=== PATIENT | female | born 1960 | race Caucasian/White ===

== ENCOUNTER → 2017-04-05 07:23 | Outpatient (CLI) | payer OTHER, SELFPAY ==
[2017-04-05 10:14] LABS: Absolute Lymphocyte Count 1.04 X10^3/ul (0.83-4.51); Absolute Neutrophil Count 2.2 X10^3/uL (2.0-7.7); Basophil# 0.02 X10^3/uL; Basophil% 0.5 % (0-1); Eosinophil# 0.14 X10^3/uL; Eosinophils% 3.8 % (0-5); Hematocrit 40.1 % (37-47); Lymphocyte # 1.04 X10^3/ul (4.0); Mean Corp Hgb Conc 32.4 g/gl (32-36); Mean Corpuscular Hgb 29.9 pg (27.0-32.0); Mean Corpuscular Volume 92.2 fL (81-99); Mean Platelet Vol. 10.6 fl (6.2-12.0); Monocyte# 0.33 X10^3/uL; Monocyte% 8.9 % (0-10); Neutrophil # 2.17 X10^3/uL (2.7-7.7); Neutrophil % 58.5 % (47-70); Platelet Count 265 K/mm3 (150-450); RBC Distribution Width CV 12.6 % (11.6-14.6); RBC Distribution Width SD 42.4 fl (35.1-43.9); Red Blood Count 4.35 M/mm3 (4.2-5.4); White Blood Count 3.7 K/mm3 (4.4-11.0)
[2017-04-05 10:28] LABS: POSITIVE COUNT NO; POSITIVE DIFFERENTIAL NO; POSITIVE MORPHOLOGY NO
[2017-04-05 10:38] LABS: AST(SGOT) 20 U/L (15-37); Alanine Aminotransfer ALT/SGPT 33 U/L (13-56); Albumin, Serum 3.8 g/dL (3.2-5.0); Alkaline Phosphatase 70 U/L (45-117); Anion Gap 6 (5-15); BUN 19 mg/dL (7-18); BUN/Creat Ratio 19.2 RATIO (10-20); Chloride 106 mmol/L (98-107); Creatinine, Serum 0.99 mg/dL (0.55-1.02); EST Glomerular Filtration Rate 61 mL/min (>60); Est Glom Filt Rate - Afr Amer 74 mL/min (>60); Globulin 3.9 g/dL (2.2-4.2); Glucose 81 mg/dL (74-106); Potassium 3.8 mmol/L (3.5-5.1); Protein, Total 7.7 g/dL (6.4-8.2); Sodium Level 140 mmol/L (136-145)
[2017-04-06 10:40] LABS: Vitamin D,25 Hydroxy 16.5 ng/mL (19.95-100.01)
[2017-04-06 16:53] LABS: SJOGREN'S Anti-SS-A test < 0.2 AI (0.0-0.9); SJOGREN'S Anti-SS-B test < 0.2 AI (0.0-0.9)
[2017-04-07 16:02] LABS: ANTINUCLEAR ANTIBODIES DIRECT Negative (Negative)
== END ==
PROVIDERS: Family Provider Internal Medicine; PCP Internal Medicine; Visit Provider Internal Medicine Rheumatology
DX: M05.79 Rheumatoid arthritis with rheumatoid factor of multiple sites without organ or systems involvement (principal); Z79.899 Other long term (current) drug therapy; M79.7 Fibromyalgia; M70.60 Trochanteric bursitis, unspecified hip; K29.60 Other gastritis without bleeding; N20.0 Calculus of kidney; R51 Headache
CPT/HCPCS: 36415; 80053; 82306; 85025; 86038; 86235

== ENCOUNTER 2017-05-30 04:01 | Emergency (ER) | payer OTHER, SELFPAY ==
[2017-05-30 04:02] VITALS: BP 180/101; PULSE 76; RESP 15; TEMP 36.8; O2SAT 100; BMI 20.7
--- NOTE | 2017-05-30 04:11 | EKG12_ITS ---
Test Reason : EPIGASTRIC PAIN Blood Pressure : / mmHG Vent. Rate : 074 BPM Atrial Rate : 074 BPM P-R Int : 138 ms QRS Dur : 082 ms QT Int : 404 ms P-R-T Axes : 068 051 065 degrees QTc Int : 448 ms Normal sinus rhythm Normal ECG Confirmed by RENETTA ZAMAN, SHON ([id number]), assignment editor CHASTIYT TINEO ([id number]) on 05/31/2017 3:14:32 PM Referred By: TUYET Confirmed By:SHON JACKSON MD
--- NOTE | 2017-05-30 04:11 | CT_ITS ---
STUDY: CT ABDOMEN AND PELVIS WITH CONTRAST REASON FOR EXAM: Female, 56 years old. Left upper quadrant pain for one day. History of cholecystectomy RADIATION DOSAGE (If Supplied By Facility): CTDIvol = ( 8.69 ) mGy, DLP = ( 373.21 ) mGycm TECHNIQUE: Transaxial images were obtained from the dome of the diaphragm to the symphysis pubis without oral contrast. 100ML ml of Isovue 300 contrast was administered. Sagittal and coronal images were reconstructed. Individualized dose optimization techniques were used for this CT. COMPARISON: None. FINDINGS: As seen on axial images 1-2, there is partial demonstration of a 9 mm nodule in the visualized lateral right breast. There is mild atelectasis in the visualized posterior lung bases. The visualized portions of the heart are within normal limits. Normal liver. The gallbladder is nonvisualized, consistent with given history of prior cholecystectomy. There is mild central intrahepatic bile duct dilatation which may be physiologic postcholecystectomy. The common bile duct is normal in caliber.. Normal spleen. Normal pancreas. Normal bilateral adrenal glands. Normal right kidney. Normal left kidney. Normal visualized stomach. Normal small intestine. Normal colon. The appendix is visualized on axial images 83-85 and it appears normal.. There is mild atherosclerotic calcification of the abdominal aorta, without a demonstrated aneurysm. Normal inferior vena cava. Normal retroperitoneum. Normal urinary bladder. There is a 3.5 cm leiomyoma in the left lateral uterine fundus. There is retrograde filling of the left gonadal vein, consistent with venous valvular incompetence. There are associated left adnexal varices. Normal abdominal wall. Normal osseous structures. CT/Abdomen/Pelvis W IV Cont ONLY IMPRESSION: Incidental finding of a 9 mm nodule in the lateral right breast. Suggest mammographic and breast ultrasound correlation. Previous cholecystectomy. Mild atherosclerosis. Leiomyomatous uterus. 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 No evidence for acute pathology. No demonstrated urinary calculi or hydronephrosis. No evidence for diverticulitis or appendicitis. Electronically Signed: Shubham Gudino MD at 5:28 EDT , Service support ,
[2017-05-30 04:21] LABS: Absolute Lymphocyte Count 1.04 X10^3/ul (0.83-4.51); Absolute Neutrophil Count 5.6 X10^3/uL (2.0-7.7); Basophil# 0.01 X10^3/uL; Basophil% 0.1 % (0-1); Eosinophil# 0.04 X10^3/uL; Eosinophils% 0.6 % (0-5); Hemoglobin 14.6 g/dl (12.0-15.0); Lymphocyte # 1.04 X10^3/ul (4.0); Lymphocyte % 14.3 % (19-41); Mean Corpuscular Hgb 30.6 pg (27.0-32.0); Mean Corpuscular Volume 90.1 fL (81-99); Mean Platelet Vol. 10.4 fl (6.2-12.0); Monocyte# 0.57 X10^3/uL; Monocyte% 7.9 % (0-10); Neutrophil # 5.59 X10^3/uL (2.7-7.7); Platelet Count 287 K/mm3 (150-450); RBC Distribution Width CV 12.7 % (11.6-14.6); RBC Distribution Width SD 41.5 fl (35.1-43.9); Red Blood Count 4.77 M/mm3 (4.2-5.4); White Blood Count 7.3 K/mm3 (4.4-11.0)
[2017-05-30] MEDS: 0.9% Normal Saline 1,000 ML 1000 ML IV (04:24)
[2017-05-30] MEDS: Ondansetron 4 MG/2 ML Vial IV (04:24)
[2017-05-30] MEDS: Morphine 4 MG/ML Syringe IV (04:24)
[2017-05-30 04:27] LABS: POSITIVE COUNT NO; POSITIVE DIFFERENTIAL NO; POSITIVE MORPHOLOGY NO
[2017-05-30 04:41] LABS: BUN 23 mg/dL (7-18); Creatinine, Serum 0.99 mg/dL (0.55-1.02); EST Glomerular Filtration Rate 61 mL/min (>60); Estimated Creatinine Clearance 56.12 ml/min; Glucose 93 mg/dL (74-106)
[2017-05-30 04:42] LABS: AST(SGOT) 34 U/L (15-37); Alanine Aminotransfer ALT/SGPT 43 U/L (13-56); Alkaline Phosphatase 73 U/L (45-117); Anion Gap 6 (5-15); BUN/Creat Ratio 23.2 RATIO (10-20); Calcium,Total 8.9 mg/dL (8.5-10.1); Chloride 107 mmol/L (98-107); Est Glom Filt Rate - Afr Amer 74 mL/min (>60); Lipase 166 U/L (73-393); Potassium 4.1 mmol/L (3.5-5.1); Sodium Level 140 mmol/L (136-145)
--- NOTE | 2017-05-30 04:54 | NURSING ---
PATIENT ATTEMPTED TO GET URINE SPECIMEN. HE ENDED UP VOIDING IN THE TOILET AND THREW THE URINE CUP IN THE TRASH. PATIENT STATES I KEEP BLACKING OUT, MY MIND ISN'T RIGHT.
--- NOTE | 2017-05-30 05:00 | RAD_ITS ---
STUDY: X-RAY CHEST REASON FOR EXAM: Female, 56 years old. Abdominal pain. Difficulty taking in her breast. TECHNIQUE: 2 AP portable views of the chest were obtained. COMPARISON: CT scan abdomen and pelvis done today. FINDINGS: The lungs are clear and expanded. There is no demonstrated pleural abnormality. Normal size heart. Normal mediastinum and serena. Normal visualized pulmonary arteries. Normal visualized aortic arch and descending thoracic aorta. Normal visualized thoracic spine. Normal visualized ribs, clavicles, and shoulders. There is no demonstrated abnormality of the visualized soft tissue structures of the upper abdomen. RAD/Chest 1 View (Portable) IMPRESSION: Normal x-ray examination of the chest. Electronically Signed: Shubham Gudino MD at 5:55 EDT , Service support ,
[2017-05-30 05:38] LABS: Bacteria 0 SEEN /hpf (None Seen); Mucous, Urine 0 SEEN /hpf (<or=2+); Red Blood Cells-Urine 0 SEEN /hpf (0-5); White Blood Cells 0 SEEN /hpf (0-5)
[2017-05-30 05:44] LABS: Color, Urine Yellow (Yellow); Glucose, Dipstick Normal (Normal); Ketone-Dipstick Negative (Negative); Leukocyte Esterase-Dipstick 25 /ul (Negative); Nitrite-Dipstick Negative (Negative); Occult Blood-Urine 150 /ul (Negative); Protein-Dipstick Negative (Negative); Urine Bilirubin Dipstick Negative (Negative); Urine Clarity Clear (Clear); Urine Urobilinogen Normal (Normal)
[2017-05-30 05:59] LABS: Squamous Epithelial Cells - UA 0-5 SEEN /hpf (5-10)
--- NOTE | 2017-05-30 06:42 | ED.DCSUM_ITS ---
- ER Visit Summary Date of Service: 05/30/17 Chief Complaint: Pain History of Present Illness: The patient is a 56 F with left upper quadrant pain that radiates through to her back. Symptoms started yesterday at 6 PM. She never had this before. She has a history of hypertension and rheumatoid arthritis. History of cholecystectomy. Non-smoker. No fevers. No other GI symptoms. No chest pain or shortness of breath. No history of PE or DVT. No urinary symptoms. No traumas. Physical Examination: Initial blood pressure 180/101. Afebrile and vital signs otherwise unremarkable. Patient is in no acute distress. Alert and oriented. Heart regular. Lungs clear. Abdomen is tender in the epigastric and left upper quadrant. No guarding or rebound. No CVA tenderness. Skin appears normal. No focal or lateralizing neurologic abnormalities grossly. Test Results: EKG showed sinus rhythm at a rate of 74. No sign of acute ischemia or infarction pattern. Chest x-ray was normal. CT abdomen showed a right breast nodule. Postoperative and chronic changes. Nothing acute. CBC normal. CMP unremarkable. Lipase normal. Urinalysis negative. Troponin normal. Emergency Department Course and Treatment: I considered pulmonary, cardiac, vascular, GI, , and musculoskeletal causes. Her workup was all fairly unremarkable. She does have a history of gastritis. I will treat her with a PPI. She will follow-up with her doctor. I advised her that if she has new or worsening issues she should return to the emergency department right away. Patient is aware of the right breast nodule. Treatment Plan: As above Disposition: Discharge Impression: 1. Abdominal pain unclear etiology 2. Right breast nodule. This note was generated with [employer] dictation software. It may contain incorrect words, spelling, and punctuation that were not noted in review of the chart prior to signing ED Disposition - Plan for ED Patient: Chief Complaint: Abd Pain Referrals: Sunita Ly MD [Primary Care Provider] -
--- NOTE | 2017-05-30 06:42 | ED.DEP ---
ED Disposition - Plan for ED Patient: Chief Complaint: Abd Pain Instructions: ED Abdominal Pain Unkn Cause Prescriptions: Omeprazole [Prilosec] 20 mg PO DAILY #30 cap Referrals: Sunita Ly MD [Primary Care Provider] -
[2017-05-30 06:45] VITALS: BP 111/62; PULSE 64; RESP 15; O2SAT 97
== END 2017-05-30 06:51 | disposition home or self-care (01) ==
PROVIDERS: Emergency Provider Emergency Medicine; Family Provider Internal Medicine; PCP Internal Medicine
DX: R10.9 Unspecified abdominal pain (principal); N63.0 Unspecified lump in unspecified breast; Z90.49 Acquired absence of other specified parts of digestive tract; I10 Essential (primary) hypertension; M06.9 Rheumatoid arthritis, unspecified
CPT/HCPCS: 71045; 74177; 80053; 81001; 83690; 84484; 85025; 93005; 96361; 96374; 96375; 99285; Q9967; A4216; J2405

== ENCOUNTER → 2017-07-06 07:22 | Outpatient (CLI) | payer OTHER, SELFPAY ==
[2017-07-06 10:16] LABS: Absolute Lymphocyte Count 1.27 X10^3/ul (0.83-4.51); Absolute Neutrophil Count 1.8 X10^3/uL (2.0-7.7); Basophil# 0.01 X10^3/uL; Basophil% 0.3 % (0-1); Eosinophil# 0.12 X10^3/uL; Eosinophils% 3.4 % (0-5); Hematocrit 40.9 % (37-47); Hemoglobin 13.4 g/dl (12.0-15.0); Lymphocyte # 1.27 X10^3/ul (4.0); Lymphocyte % 36.1 % (19-41); Mean Corp Hgb Conc 32.8 g/gl (32-36); Mean Corpuscular Hgb 30.5 pg (27.0-32.0); Mean Corpuscular Volume 93.2 fL (81-99); Mean Platelet Vol. 10.7 fl (6.2-12.0); Monocyte# 0.33 X10^3/uL; Monocyte% 9.4 % (0-10); Neutrophil # 1.78 X10^3/uL (2.7-7.7); Neutrophil % 50.5 % (47-70); Platelet Count 296 K/mm3 (150-450); RBC Distribution Width CV 13.2 % (11.6-14.6); RBC Distribution Width SD 43.8 fl (35.1-43.9); Red Blood Count 4.39 M/mm3 (4.2-5.4); White Blood Count 3.5 K/mm3 (4.4-11.0)
[2017-07-06 10:19] LABS: POSITIVE COUNT NO; POSITIVE DIFFERENTIAL NO; POSITIVE MORPHOLOGY NO
[2017-07-06 10:31] LABS: AST(SGOT) 35 U/L (15-37); Alanine Aminotransfer ALT/SGPT 58 U/L (13-56); Albumin, Serum 3.9 g/dL (3.2-5.0); Alkaline Phosphatase 66 U/L (45-117); Anion Gap 7 (5-15); BUN 20 mg/dL (7-18); Calcium,Total 8.8 mg/dL (8.5-10.1); Chloride 105 mmol/L (98-107); Creatinine, Serum 1.05 mg/dL (0.55-1.02); EST Glomerular Filtration Rate 57 mL/min (>60); Est Glom Filt Rate - Afr Amer 69 mL/min (>60); Globulin 3.8 g/dL (2.2-4.2); Glucose 81 mg/dL (74-106); Potassium 4.2 mmol/L (3.5-5.1); Protein, Total 7.7 g/dL (6.4-8.2); Sodium Level 141 mmol/L (136-145)
[2017-07-06 10:49] LABS: Vitamin D,25 Hydroxy 31.2 ng/mL (29.95-100.01)
== END ==
PROVIDERS: Family Provider Internal Medicine; PCP Internal Medicine; Visit Provider Internal Medicine Rheumatology
DX: M05.79 Rheumatoid arthritis with rheumatoid factor of multiple sites without organ or systems involvement (principal); Z79.899 Other long term (current) drug therapy; M79.7 Fibromyalgia; E55.9 Vitamin D deficiency, unspecified; M70.60 Trochanteric bursitis, unspecified hip; K29.60 Other gastritis without bleeding; N20.0 Calculus of kidney; R51 Headache
CPT/HCPCS: 36415; 80053; 82306; 85025

== ENCOUNTER → 2017-09-21 07:33 | Outpatient (CLI) | payer OTHER, SELFPAY ==
[2017-09-21 10:31] LABS: Absolute Lymphocyte Count 0.86 X10^3/ul (0.83-4.51); Absolute Neutrophil Count 3.2 X10^3/uL (2.0-7.7); Basophil# 0.03 X10^3/uL; Basophil% 0.6 % (0-1); Eosinophil# 0.26 X10^3/uL; Eosinophils% 5.3 % (0-5); Hematocrit 39.5 % (37-47); Hemoglobin 13.1 g/dl (12.0-15.0); Lymphocyte # 0.86 X10^3/ul (4.0); Lymphocyte % 17.7 % (19-41); Mean Corp Hgb Conc 33.2 g/gl (32-36); Mean Corpuscular Hgb 30.7 pg (27.0-32.0); Mean Corpuscular Volume 92.5 fL (81-99); Mean Platelet Vol. 10.7 fl (6.2-12.0); Monocyte# 0.52 X10^3/uL; Monocyte% 10.7 % (0-10); Neutrophil # 3.18 X10^3/uL (2.7-7.7); Neutrophil % 65.3 % (47-70); Platelet Count 274 K/mm3 (150-450); RBC Distribution Width CV 12.8 % (11.6-14.6); RBC Distribution Width SD 42.6 fl (35.1-43.9); Red Blood Count 4.27 M/mm3 (4.2-5.4); White Blood Count 4.9 K/mm3 (4.4-11.0)
[2017-09-21 10:34] LABS: POSITIVE COUNT NO; POSITIVE DIFFERENTIAL NO; POSITIVE MORPHOLOGY NO
[2017-09-21 10:44] LABS: AST(SGOT) 23 U/L (15-37); Alanine Aminotransfer ALT/SGPT 34 U/L (13-56); Albumin, Serum 3.9 g/dL (3.2-5.0); Alkaline Phosphatase 69 U/L (45-117); Anion Gap 10 (5-15); BUN 22 mg/dL (7-18); BUN/Creat Ratio 20.2 RATIO (10-20); Calcium,Total 9.3 mg/dL (8.5-10.1); Chloride 104 mmol/L (98-107); Creatinine, Serum 1.09 mg/dL (0.55-1.02); EST Glomerular Filtration Rate 55 mL/min (>60); Est Glom Filt Rate - Afr Amer 66 mL/min (>60); Glucose 81 mg/dL (74-106); Potassium 3.7 mmol/L (3.5-5.1); Protein, Total 7.9 g/dL (6.4-8.2); Sodium Level 142 mmol/L (136-145)
== END ==
PROVIDERS: Family Provider Internal Medicine; PCP Internal Medicine; Visit Provider Internal Medicine Rheumatology
DX: M05.79 Rheumatoid arthritis with rheumatoid factor of multiple sites without organ or systems involvement (principal); Z79.899 Other long term (current) drug therapy; M79.7 Fibromyalgia; E55.9 Vitamin D deficiency, unspecified; M70.60 Trochanteric bursitis, unspecified hip; K29.60 Other gastritis without bleeding; N20.0 Calculus of kidney; R51 Headache
CPT/HCPCS: 36415; 80053; 85025

== ENCOUNTER → 2017-12-22 07:13 | Outpatient (CLI) | payer OTHER, SELFPAY ==
[2017-12-22 10:37] LABS: Absolute Lymphocyte Count 0.97 X10^3/ul (0.83-4.51); Absolute Neutrophil Count 1.5 X10^3/uL (2.0-7.7); Basophil# 0.01 X10^3/uL; Basophil% 0.3 % (0-1); Eosinophil# 0.17 X10^3/uL; Eosinophils% 5.7 % (0-5); Hematocrit 40.6 % (37-47); Hemoglobin 13.5 g/dl (12.0-15.0); Lymphocyte # 0.97 X10^3/ul (4.0); Lymphocyte % 32.6 % (19-41); Mean Corp Hgb Conc 33.3 g/gl (32-36); Mean Corpuscular Hgb 30.4 pg (27.0-32.0); Mean Corpuscular Volume 91.4 fL (81-99); Mean Platelet Vol. 10.7 fl (6.2-12.0); Monocyte# 0.34 X10^3/uL; Monocyte% 11.4 % (0-10); Neutrophil # 1.48 X10^3/uL (2.7-7.7); Neutrophil % 49.7 % (47-70); Platelet Count 261 K/mm3 (150-450); RBC Distribution Width CV 12.6 % (11.6-14.6); RBC Distribution Width SD 41.4 fl (35.1-43.9); Red Blood Count 4.44 M/mm3 (4.2-5.4)
[2017-12-22 10:38] LABS: POSITIVE COUNT NO; POSITIVE DIFFERENTIAL NO; POSITIVE MORPHOLOGY NO
[2017-12-22 10:56] LABS: AST(SGOT) 20 U/L (15-37); Alanine Aminotransfer ALT/SGPT 38 U/L (13-56); Albumin, Serum 3.9 g/dL (3.2-5.0); Alkaline Phosphatase 73 U/L (45-117); Anion Gap 7 (5-15); BUN 18 mg/dL (7-18); BUN/Creat Ratio 17.1 RATIO (10-20); Calcium,Total 8.9 mg/dL (8.5-10.1); Chloride 106 mmol/L (98-107); Creatinine, Serum 1.05 mg/dL (0.55-1.02); EST Glomerular Filtration Rate 57 mL/min (>60); Est Glom Filt Rate - Afr Amer 69 mL/min (>60); Globulin 3.8 g/dL (2.2-4.2); Glucose 77 mg/dL (74-106); Potassium 3.9 mmol/L (3.5-5.1); Protein, Total 7.7 g/dL (6.4-8.2); Sodium Level 143 mmol/L (136-145)
== END ==
PROVIDERS: Family Provider Internal Medicine; PCP Internal Medicine; Referring Provider Internal Medicine Rheumatology; Visit Provider Internal Medicine Rheumatology
DX: M05.79 Rheumatoid arthritis with rheumatoid factor of multiple sites without organ or systems involvement (principal); M70.60 Trochanteric bursitis, unspecified hip; Y93.9 Activity, unspecified; K29.60 Other gastritis without bleeding; M79.7 Fibromyalgia; E55.9 Vitamin D deficiency, unspecified; N20.0 Calculus of kidney; R51 Headache; Z79.899 Other long term (current) drug therapy
CPT/HCPCS: 36415; 80053; 85025

== ENCOUNTER → 2018-03-14 07:26 | Outpatient (CLI) | payer OTHER, SELFPAY ==
[2018-03-14 10:18] LABS: Absolute Lymphocyte Count 0.56 X10^3/ul (0.83-4.51); Absolute Neutrophil Count 3.5 X10^3/uL (2.0-7.7); Basophil# 0.03 X10^3/uL; Basophil% 0.6 % (0-1); Eosinophils% 4.3 % (0-5); Hematocrit 39.6 % (37-47); Hemoglobin 12.9 g/dl (12.0-15.0); Lymphocyte # 0.56 X10^3/ul (4.0); Mean Corp Hgb Conc 32.6 g/gl (32-36); Mean Corpuscular Hgb 29.7 pg (27.0-32.0); Mean Platelet Vol. 10.9 fl (6.2-12.0); Monocyte% 8.6 % (0-10); Neutrophil # 3.46 X10^3/uL (2.7-7.7); Neutrophil % 74.3 % (47-70); Platelet Count 269 K/mm3 (150-450); RBC Distribution Width CV 12.8 % (11.6-14.6); RBC Distribution Width SD 42.5 fl (35.1-43.9); Red Blood Count 4.35 M/mm3 (4.2-5.4); White Blood Count 4.7 K/mm3 (4.4-11.0)
[2018-03-14 10:20] LABS: Differential Indicated SCAN CRITERIA MET; POSITIVE COUNT NO; POSITIVE DIFFERENTIAL YES; POSITIVE MORPHOLOGY NO
[2018-03-14 10:37] LABS: AST(SGOT) 20 U/L (15-37); Alanine Aminotransfer ALT/SGPT 31 U/L (13-56); Albumin, Serum 3.8 g/dL (3.2-5.0); Alkaline Phosphatase 79 U/L (45-117); Anion Gap 10 (5-15); BUN 19 mg/dL (7-18); BUN/Creat Ratio 17.4 RATIO (10-20); Calcium,Total 9.2 mg/dL (8.5-10.1); Chloride 107 mmol/L (98-107); Creatinine, Serum 1.09 mg/dL (0.55-1.02); EST Glomerular Filtration Rate 55 mL/min (>60); Est Glom Filt Rate - Afr Amer 66 mL/min (>60); Globulin 3.9 g/dL (2.2-4.2); Glucose 82 mg/dL (74-106); Potassium 3.8 mmol/L (3.5-5.1); Protein, Total 7.7 g/dL (6.4-8.2); Sodium Level 142 mmol/L (136-145)
== END ==
PROVIDERS: Family Provider Internal Medicine; PCP Internal Medicine; Referring Provider Internal Medicine Rheumatology; Visit Provider Internal Medicine Rheumatology
DX: M05.79 Rheumatoid arthritis with rheumatoid factor of multiple sites without organ or systems involvement (principal); M79.7 Fibromyalgia; E55.9 Vitamin D deficiency, unspecified; M70.60 Trochanteric bursitis, unspecified hip; K29.60 Other gastritis without bleeding; N20.0 Calculus of kidney; R51 Headache; Z79.899 Other long term (current) drug therapy
CPT/HCPCS: 36415; 80053; 85025

== ENCOUNTER → 2018-03-30 16:49 | Outpatient (CLI) | payer OTHER, SELFPAY ==
--- NOTE | 2018-03-30 16:52 | RAD_ITS ---
STUDY: X-RAY - PELVIS REASON FOR EXAM: Female, 57 years old. Rheumatoid arthritis. TECHNIQUE: One view of the pelvis was obtained. COMPARISON: CT abdomen and pelvis May 30, 2017. FINDINGS: There is a non-specific bowel gas pattern. There are stable multiple calcified phleboliths. There is stable early inferior periarticular spurring of the bilateral sacroiliac joint. Normal iliac wings and visualized sacrum. Normal visualized bilateral superior and inferior pubic rami. Normal pubic symphysis. Normal right ischium. Stable small, benign-appearing sclerotic density in the inferior left ischium. There is no demonstrated osseous destructive lesion or acute fracture. Normal visualized right femoral head. Normal right acetabulum. Normal right hip joint. Normal visualized left femoral head. Normal left acetabulum. Normal left hip joint. RAD/Pelvis 1 or 2 Views IMPRESSION: Virtually normal x-ray examination of the pelvis, unchanged from May 2017. Electronically Signed: Az Perkins MD at 16:38 EST , Service support ,
== END ==
PROVIDERS: Family Provider Internal Medicine; PCP Internal Medicine; Referring Provider Internal Medicine Rheumatology; Visit Provider Internal Medicine Rheumatology
DX: M05.79 Rheumatoid arthritis with rheumatoid factor of multiple sites without organ or systems involvement (principal); M79.7 Fibromyalgia; E55.9 Vitamin D deficiency, unspecified; Z79.899 Other long term (current) drug therapy
CPT/HCPCS: 72170

== ENCOUNTER → 2018-04-12 07:27 | Outpatient (CLI) | payer OTHER, SELFPAY ==
[2018-04-12 10:22] LABS: Absolute Lymphocyte Count 0.62 X10^3/ul (0.83-4.51); Absolute Neutrophil Count 2.5 X10^3/uL (2.0-7.7); Basophil# 0.04 X10^3/uL; Eosinophil# 0.26 X10^3/uL; Eosinophils% 6.8 % (0-5); Hematocrit 40.5 % (37-47); Hemoglobin 13.2 g/dl (12.0-15.0); Lymphocyte # 0.62 X10^3/ul (4.0); Lymphocyte % 16.1 % (19-41); Mean Corp Hgb Conc 32.6 g/gl (32-36); Mean Corpuscular Hgb 30.2 pg (27.0-32.0); Mean Corpuscular Volume 92.7 fL (81-99); Mean Platelet Vol. 11.1 fl (6.2-12.0); Monocyte# 0.42 X10^3/uL; Monocyte% 10.9 % (0-10); Neutrophil # 2.51 X10^3/uL (2.7-7.7); Neutrophil % 65.2 % (47-70); Platelet Count 270 K/mm3 (150-450); RBC Distribution Width CV 12.6 % (11.6-14.6); RBC Distribution Width SD 41.9 fl (35.1-43.9); Red Blood Count 4.37 M/mm3 (4.2-5.4); White Blood Count 3.9 K/mm3 (4.4-11.0)
[2018-04-12 10:24] LABS: POSITIVE COUNT NO; POSITIVE DIFFERENTIAL NO; POSITIVE MORPHOLOGY NO
[2018-04-12 10:41] LABS: AST(SGOT) 19 U/L (15-37); Alanine Aminotransfer ALT/SGPT 30 U/L (13-56); Albumin, Serum 3.9 g/dL (3.2-5.0); Alkaline Phosphatase 82 U/L (45-117); Anion Gap 6 (5-15); BUN 24 mg/dL (7-18); BUN/Creat Ratio 21.6 RATIO (10-20); Calcium,Total 8.9 mg/dL (8.5-10.1); Chloride 107 mmol/L (98-107); Creatinine, Serum 1.11 mg/dL (0.55-1.02); EST Glomerular Filtration Rate 54 mL/min (>60); Est Glom Filt Rate - Afr Amer 65 mL/min (>60); Globulin 3.9 g/dL (2.2-4.2); Glucose 82 mg/dL (74-106); Protein, Total 7.8 g/dL (6.4-8.2); Sodium Level 139 mmol/L (136-145)
[2018-04-12 10:42] LABS: Vitamin D,25 Hydroxy 19.4 ng/mL (29.95-100.01)
== END ==
PROVIDERS: Family Provider Internal Medicine; PCP Internal Medicine; Referring Provider Internal Medicine Rheumatology; Visit Provider Internal Medicine Rheumatology
DX: M05.79 Rheumatoid arthritis with rheumatoid factor of multiple sites without organ or systems involvement (principal); M79.7 Fibromyalgia; E55.9 Vitamin D deficiency, unspecified; Z79.899 Other long term (current) drug therapy
CPT/HCPCS: 36415; 80053; 82306; 85025

== ENCOUNTER → 2018-09-11 07:29 | Outpatient (CLI) | payer OTHER, SELFPAY ==
[2018-09-11 10:45] LABS: Absolute Lymphocyte Count 0.66 X10^3/uL (0.83-4.51); Absolute Neutrophil Count 2.1 X10^3/uL (2.0-7.7); Basophil# 0.03 X10^3/uL; Basophil% 0.9 % (0-1); Eosinophils% 8.5 % (0-5); Hematocrit 39.2 % (37-47); Hemoglobin 12.9 g/dL (12.0-15.0); Lymphocyte # 0.66 X10^3/ul (4.0); Lymphocyte % 18.8 % (19-41); Mean Corp Hgb Conc 32.9 g/dL (32-36); Mean Corpuscular Hgb 29.6 pg (27.0-32.0); Mean Corpuscular Volume 89.9 fL (81-99); Mean Platelet Vol. 10.8 fl (6.2-12.0); Monocyte# 0.43 X10^3/uL; Monocyte% 12.2 % (0-10); NRBC Flagged by Analyzer 0 % (0-5); Neutrophil # 2.09 X10^3/uL (2.7-7.7); Neutrophil % 59.3 % (47-70); Platelet Count 228 K/mm3 (150-450); RBC Distribution Width CV 12.7 % (11.6-14.6); RBC Distribution Width SD 41.9 fl (35.1-43.9); Red Blood Count 4.36 M/mm3 (4.2-5.4); White Blood Count 3.5 K/mm3 (4.4-11.0)
[2018-09-11 11:21] LABS: AST(SGOT) 21 U/L (15-37); Alanine Aminotransfer ALT/SGPT 29 U/L (13-56); Albumin, Serum 3.8 g/dL (3.2-5.0); Alkaline Phosphatase 85 U/L (45-117); Anion Gap 6 (5-15); BUN 18 mg/dL (7-18); BUN/Creat Ratio 16.1 RATIO (10-20); Calcium,Total 9.4 mg/dL (8.5-10.1); Chloride 106 mmol/L (98-107); Creatinine, Serum 1.12 mg/dL (0.55-1.02); EST Glomerular Filtration Rate 53 mL/min (>60); Est Glom Filt Rate - Afr Amer 64 mL/min (>60); Globulin 3.8 g/dL (2.2-4.2); Glucose 96 mg/dL (74-106); Potassium 3.8 mmol/L (3.5-5.1); Protein, Total 7.6 g/dL (6.4-8.2); Sodium Level 140 mmol/L (136-145)
== END ==
PROVIDERS: Family Provider Internal Medicine; PCP Internal Medicine; Referring Provider Internal Medicine Rheumatology; Visit Provider Internal Medicine Rheumatology
DX: M05.79 Rheumatoid arthritis with rheumatoid factor of multiple sites without organ or systems involvement (principal); M79.7 Fibromyalgia; L40.8 Other psoriasis; M70.60 Trochanteric bursitis, unspecified hip; K29.60 Other gastritis without bleeding; N20.0 Calculus of kidney; R51 Headache; Z79.899 Other long term (current) drug therapy
CPT/HCPCS: 36415; 80053; 85025

== ENCOUNTER → 2018-12-11 07:21 | Outpatient (CLI) | payer OTHER, SELFPAY ==
[2018-12-11 10:00] LABS: Absolute Lymphocyte Count 0.71 X10^3/uL (0.83-4.51); Absolute Neutrophil Count 2.3 X10^3/uL (2.0-7.7); Basophil# 0.03 X10^3/uL; Basophil% 0.8 % (0-1); Eosinophil# 0.33 X10^3/uL; Eosinophils% 8.6 % (0-5); Hematocrit 40.6 % (37-47); Hemoglobin 13.2 g/dL (12.0-15.0); Lymphocyte # 0.71 X10^3/ul (4.0); Lymphocyte % 18.6 % (19-41); Mean Corp Hgb Conc 32.5 g/dL (32-36); Mean Corpuscular Hgb 30.1 pg (27.0-32.0); Mean Corpuscular Volume 92.5 fL (81-99); Mean Platelet Vol. 10.5 fl (6.2-12.0); Monocyte% 10.5 % (0-10); NRBC Flagged by Analyzer 0 % (0-5); Neutrophil # 2.33 X10^3/uL (2.7-7.7); Platelet Count 250 K/mm3 (150-450); RBC Distribution Width CV 12.6 % (11.6-14.6); RBC Distribution Width SD 42.7 fl (35.1-43.9); Red Blood Count 4.39 M/mm3 (4.2-5.4); White Blood Count 3.8 K/mm3 (4.4-11.0)
[2018-12-11 10:11] LABS: ALB/GLOB Ratio 0.9 RATIO (0.9-2.4); AST(SGOT) 24 U/L (15-37); Alanine Aminotransfer ALT/SGPT 33 U/L (13-56); Albumin, Serum 3.8 g/dL (3.2-5.0); Alkaline Phosphatase 88 U/L (45-117); Anion Gap 6 (5-15); BUN 16 mg/dL (7-18); BUN/Creat Ratio 13.3 RATIO (10-20); Calcium,Total 9.1 mg/dL (8.5-10.1); Chloride 105 mmol/L (98-107); EST Glomerular Filtration Rate 49 mL/min (>60); Est Glom Filt Rate - Afr Amer 59 mL/min (>60); Globulin 4.3 g/dL (2.2-4.2); Glucose 88 mg/dL (74-106); Potassium 3.7 mmol/L (3.5-5.1); Protein, Total 8.1 g/dL (6.4-8.2); Sodium Level 140 mmol/L (136-145)
== END ==
PROVIDERS: Family Provider Internal Medicine; PCP Internal Medicine; Referring Provider Internal Medicine Rheumatology; Visit Provider Internal Medicine Rheumatology
DX: M05.79 Rheumatoid arthritis with rheumatoid factor of multiple sites without organ or systems involvement (principal); M79.7 Fibromyalgia; L40.8 Other psoriasis; M70.60 Trochanteric bursitis, unspecified hip; K29.60 Other gastritis without bleeding; N20.0 Calculus of kidney; R51 Headache; Z79.899 Other long term (current) drug therapy
CPT/HCPCS: 36415; 80053; 85025

== ENCOUNTER → 2019-01-09 08:48 | Outpatient (CLI) | payer OTHER, SELFPAY ==
[2019-01-09 10:18] LABS: Absolute Lymphocyte Count 0.59 X10^3/uL (0.83-4.51); Absolute Neutrophil Count 2.6 X10^3/uL (2.0-7.7); Basophil# 0.03 X10^3/uL; Basophil% 0.8 % (0-1); Eosinophil# 0.18 X10^3/uL; Eosinophils% 4.7 % (0-5); Hematocrit 42.9 % (37-47); Hemoglobin 13.6 g/dL (12.0-15.0); Lymphocyte # 0.59 X10^3/ul (4.0); Lymphocyte % 15.5 % (19-41); Mean Corp Hgb Conc 31.7 g/dL (32-36); Mean Corpuscular Hgb 29.4 pg (27.0-32.0); Mean Corpuscular Volume 92.7 fL (81-99); Mean Platelet Vol. 10.7 fl (6.2-12.0); Monocyte# 0.44 X10^3/uL; Monocyte% 11.5 % (0-10); NRBC Flagged by Analyzer 0 % (0-5); Neutrophil # 2.56 X10^3/uL (2.7-7.7); Neutrophil % 67.2 % (47-70); POSITIVE DIFFERENTIAL YES; Platelet Count 250 K/mm3 (150-450); RBC Distribution Width CV 12.4 % (11.6-14.6); RBC Distribution Width SD 41.9 fl (35.1-43.9); Red Blood Count 4.63 M/mm3 (4.2-5.4); White Blood Count 3.8 K/mm3 (4.4-11.0)
[2019-01-09 10:19] LABS: Differential Indicated SCAN CRITERIA MET
[2019-01-09 10:32] LABS: ALB/GLOB Ratio 0.9 RATIO (0.9-2.4); AST(SGOT) 21 U/L (15-37); Alanine Aminotransfer ALT/SGPT 27 U/L (13-56); Albumin, Serum 3.9 g/dL (3.2-5.0); Alkaline Phosphatase 86 U/L (45-117); Anion Gap 6 (5-15); BUN 19 mg/dL (7-18); BUN/Creat Ratio 16.1 RATIO (10-20); Calcium,Total 9.4 mg/dL (8.5-10.1); Chloride 104 mmol/L (98-107); Creatinine, Serum 1.18 mg/dL (0.55-1.02); EST Glomerular Filtration Rate 50 mL/min (>60); Est Glom Filt Rate - Afr Amer 60 mL/min (>60); Globulin 4.3 g/dL (2.2-4.2); Glucose 83 mg/dL (74-106); Potassium 4.1 mmol/L (3.5-5.1); Protein, Total 8.2 g/dL (6.4-8.2); Sodium Level 138 mmol/L (136-145)
[2019-01-10 14:32] LABS: Pathologist Review Reviewed
== END ==
PROVIDERS: Family Provider Internal Medicine; PCP Internal Medicine; Referring Provider Internal Medicine Rheumatology; Visit Provider Internal Medicine Rheumatology
DX: M05.79 Rheumatoid arthritis with rheumatoid factor of multiple sites without organ or systems involvement (principal); L40.8 Other psoriasis; M70.60 Trochanteric bursitis, unspecified hip; M79.7 Fibromyalgia; K29.60 Other gastritis without bleeding; N20.0 Calculus of kidney; R51 Headache; Z79.899 Other long term (current) drug therapy
CPT/HCPCS: 36415; 80053; 85025

== ENCOUNTER → 2019-02-16 07:28 | Outpatient (CLI) | payer OTHER, SELFPAY ==
[2019-02-16 10:02] LABS: Absolute Lymphocyte Count 0.77 X10^3/uL (0.83-4.51); Absolute Neutrophil Count 2.7 X10^3/uL (2.0-7.7); Basophil# 0.04 X10^3/uL; Basophil% 0.9 % (0-1); Eosinophil# 0.28 X10^3/uL; Eosinophils% 6.6 % (0-5); Hematocrit 41.4 % (37-47); Hemoglobin 13.2 g/dL (12.0-15.0); Lymphocyte # 0.77 X10^3/ul (4.0); Lymphocyte % 18.1 % (19-41); Mean Corp Hgb Conc 31.9 g/dL (32-36); Mean Corpuscular Hgb 29.1 pg (27.0-32.0); Mean Corpuscular Volume 91.2 fL (81-99); Mean Platelet Vol. 10.7 fl (6.2-12.0); Monocyte# 0.46 X10^3/uL; Monocyte% 10.8 % (0-10); NRBC Flagged by Analyzer 0 % (0-5); Neutrophil # 2.68 X10^3/uL (2.7-7.7); Neutrophil % 62.9 % (47-70); Platelet Count 271 K/mm3 (150-450); RBC Distribution Width CV 12.4 % (11.6-14.6); RBC Distribution Width SD 41.3 fl (35.1-43.9); Red Blood Count 4.54 M/mm3 (4.2-5.4); White Blood Count 4.3 K/mm3 (4.4-11.0)
[2019-02-16 10:13] LABS: ALB/GLOB Ratio 0.9 RATIO (0.9-2.4); AST(SGOT) 27 U/L (15-37); Alanine Aminotransfer ALT/SGPT 34 U/L (13-56); Albumin, Serum 3.7 g/dL (3.2-5.0); Alkaline Phosphatase 87 U/L (45-117); Anion Gap 4 (5-15); BUN 21 mg/dL (7-18); BUN/Creat Ratio 18.1 RATIO (10-20); Chloride 105 mmol/L (98-107); Creatinine, Serum 1.16 mg/dL (0.55-1.02); EST Glomerular Filtration Rate 51 mL/min (>60); Est Glom Filt Rate - Afr Amer 61 mL/min (>60); Globulin 4.3 g/dL (2.2-4.2); Glucose 87 mg/dL (74-106); Potassium 3.9 mmol/L (3.5-5.1); Sodium Level 138 mmol/L (136-145)
== END ==
PROVIDERS: Family Provider Internal Medicine; PCP Internal Medicine; Referring Provider Internal Medicine Rheumatology; Visit Provider Internal Medicine Rheumatology
DX: M05.79 Rheumatoid arthritis with rheumatoid factor of multiple sites without organ or systems involvement (principal); M79.7 Fibromyalgia; L40.8 Other psoriasis; M70.60 Trochanteric bursitis, unspecified hip; K29.60 Other gastritis without bleeding; N20.0 Calculus of kidney; R51 Headache; Z79.899 Other long term (current) drug therapy
CPT/HCPCS: 36415; 80053; 85025

== ENCOUNTER → 2019-06-13 10:15 | Outpatient (CLI) | payer OTHER, SELFPAY ==
[2019-06-13 12:16] LABS: Absolute Lymphocyte Count 0.78 X10^3/uL (0.83-4.51); Absolute Neutrophil Count 2.4 X10^3/uL (2.0-7.7); Basophil# 0.01 X10^3/uL; Basophil% 0.3 % (0-1); Eosinophil# 0.24 X10^3/uL; Eosinophils% 6.1 % (0-5); Hematocrit 40.1 % (37-47); Hemoglobin 13.1 g/dL (12.0-15.0); Lymphocyte # 0.78 X10^3/ul (4.0); Lymphocyte % 19.7 % (19-41); Mean Corp Hgb Conc 32.7 g/dL (32-36); Mean Corpuscular Hgb 29.1 pg (27.0-32.0); Mean Corpuscular Volume 89.1 fL (81-99); Mean Platelet Vol. 10.7 fl (6.2-12.0); Monocyte# 0.48 X10^3/uL; Monocyte% 12.2 % (0-10); NRBC Flagged by Analyzer 0 % (0-5); Neutrophil # 2.42 X10^3/uL (2.7-7.7); Neutrophil % 61.2 % (47-70); Platelet Count 239 K/mm3 (150-450); RBC Distribution Width CV 12.3 % (11.6-14.6); RBC Distribution Width SD 40.4 fl (35.1-43.9)
[2019-06-13 12:18] LABS: ALB/GLOB Ratio 0.9 RATIO (0.9-2.4); AST(SGOT) 18 U/L (15-37); Alanine Aminotransfer ALT/SGPT 27 U/L (13-56); Albumin, Serum 3.6 g/dL (3.2-5.0); Alkaline Phosphatase 87 U/L (45-117); Anion Gap 3 (5-15); BUN 19 mg/dL (7-18); BUN/Creat Ratio 16.7 RATIO (10-20); Calcium,Total 9.3 mg/dL (8.5-10.1); Chloride 106 mmol/L (98-107); Creatinine, Serum 1.14 mg/dL (0.55-1.02); EST Glomerular Filtration Rate 52 mL/min (>60); Est Glom Filt Rate - Afr Amer 63 mL/min (>60); Glucose 85 mg/dL (74-106); Potassium 4.1 mmol/L (3.5-5.1); Protein, Total 7.6 g/dL (6.4-8.2); Sodium Level 138 mmol/L (136-145)
== END ==
PROVIDERS: PCP Internal Medicine; Referring Provider Internal Medicine Rheumatology; Visit Provider Internal Medicine Rheumatology
DX: M05.79 Rheumatoid arthritis with rheumatoid factor of multiple sites without organ or systems involvement (principal); M79.7 Fibromyalgia; L40.8 Other psoriasis; M70.60 Trochanteric bursitis, unspecified hip; Y93.9 Activity, unspecified; K29.60 Other gastritis without bleeding; N20.0 Calculus of kidney; R51 Headache; Z79.899 Other long term (current) drug therapy
CPT/HCPCS: 36415; 80053; 85025

== ENCOUNTER → 2019-08-21 09:38 | Outpatient (CLI) | payer OTHER, SELFPAY ==
[2019-08-21 12:47] LABS: Absolute Neutrophil Count 2.8 X10^3/uL (2.0-7.7); Basophil# 0.04 X10^3/uL; Basophil% 0.8 % (0-1); Eosinophil# 0.33 X10^3/uL; Eosinophils% 6.8 % (0-5); Hematocrit 41.9 % (37-47); Hemoglobin 13.5 g/dL (12.0-15.0); Lymphocyte % 22.8 % (19-41); Mean Corp Hgb Conc 32.2 g/dL (32-36); Mean Corpuscular Hgb 29.9 pg (27.0-32.0); Mean Corpuscular Volume 92.9 fL (81-99); Mean Platelet Vol. 10.9 fl (6.2-12.0); Monocyte% 10.4 % (0-10); NRBC Flagged by Analyzer 0 % (0-5); Neutrophil # 2.84 X10^3/uL (2.7-7.7); Platelet Count 258 K/mm3 (150-450); RBC Distribution Width CV 12.7 % (11.6-14.6); RBC Distribution Width SD 42.6 fl (35.1-43.9); Red Blood Count 4.51 M/mm3 (4.2-5.4); White Blood Count 4.8 K/mm3 (4.4-11.0)
[2019-08-21 12:55] LABS: ALB/GLOB Ratio 0.9 RATIO (0.9-2.4); AST(SGOT) 20 U/L (15-37); Alanine Aminotransfer ALT/SGPT 26 U/L (13-56); Albumin, Serum 3.8 g/dL (3.2-5.0); Alkaline Phosphatase 93 U/L (45-117); Anion Gap 5 (5-15); BUN 21 mg/dL (7-18); BUN/Creat Ratio 19.1 RATIO (10-20); Calcium,Total 8.9 mg/dL (8.5-10.1); Chloride 105 mmol/L (98-107); EST Glomerular Filtration Rate 54 mL/min (>60); Est Glom Filt Rate - Afr Amer 65 mL/min (>60); Globulin 4.2 g/dL (2.2-4.2); Glucose 80 mg/dL (74-106); Potassium 3.7 mmol/L (3.5-5.1); Sodium Level 138 mmol/L (136-145)
== END ==
PROVIDERS: PCP Internal Medicine; Referring Provider Internal Medicine Rheumatology; Visit Provider Internal Medicine Rheumatology
DX: M05.79 Rheumatoid arthritis with rheumatoid factor of multiple sites without organ or systems involvement (principal); L40.59 Other psoriatic arthropathy; Z79.899 Other long term (current) drug therapy; M79.7 Fibromyalgia; K29.60 Other gastritis without bleeding; L40.8 Other psoriasis; M70.60 Trochanteric bursitis, unspecified hip; N20.0 Calculus of kidney; R51 Headache
CPT/HCPCS: 36415; 80053; 85025

== ENCOUNTER → 2019-10-16 08:25 | Outpatient (CLI) | payer OTHER, SELFPAY ==
[2019-10-16 10:17] LABS: Absolute Lymphocyte Count 1.03 X10^3/uL (0.83-4.51); Absolute Neutrophil Count 2.4 X10^3/uL (2.0-7.7); Basophil# 0.04 X10^3/uL; Eosinophil# 0.31 X10^3/uL; Eosinophils% 7.4 % (0-5); Hematocrit 40.5 % (37-47); Hemoglobin 13.4 g/dL (12.0-15.0); Lymphocyte # 1.03 X10^3/ul (4.0); Lymphocyte % 24.5 % (19-41); Mean Corp Hgb Conc 33.1 g/dL (32-36); Mean Corpuscular Hgb 30.7 pg (27.0-32.0); Mean Corpuscular Volume 92.7 fL (81-99); Mean Platelet Vol. 10.5 fl (6.2-12.0); Monocyte# 0.43 X10^3/uL; Monocyte% 10.2 % (0-10); NRBC Flagged by Analyzer 0 % (0-5); Neutrophil # 2.39 X10^3/uL (2.7-7.7); Neutrophil % 56.7 % (47-70); Platelet Count 255 K/mm3 (150-450); RBC Distribution Width CV 12.8 % (11.6-14.6); RBC Distribution Width SD 42.7 fl (35.1-43.9); Red Blood Count 4.37 M/mm3 (4.2-5.4); White Blood Count 4.2 K/mm3 (4.4-11.0)
[2019-10-16 10:42] LABS: ALB/GLOB Ratio 0.9 RATIO (0.9-2.4); AST(SGOT) 26 U/L (15-37); Alanine Aminotransfer ALT/SGPT 43 U/L (13-56); Albumin, Serum 3.7 g/dL (3.2-5.0); Alkaline Phosphatase 97 U/L (45-117); Anion Gap 4 (5-15); BUN 25 mg/dL (7-18); BUN/Creat Ratio 18.2 RATIO (10-20); Calcium,Total 9.2 mg/dL (8.5-10.1); Chloride 107 mmol/L (98-107); Cholesterol 220 mg/dL (200); Creatinine, Serum 1.37 mg/dL (0.55-1.02); EST Glomerular Filtration Rate 42 mL/min (>60); Est Glom Filt Rate - Afr Amer 51 mL/min (>60); Globulin 4.2 g/dL (2.2-4.2); Glucose 86 mg/dL (74-106); High Density Lipoprotein 60 mg/dL; Potassium 4.2 mmol/L (3.5-5.1); Protein, Total 7.9 g/dL (6.4-8.2); Sodium Level 139 mmol/L (136-145); Triglycerides 150 mg/dL; Very Low Density Lipoprotein 30 mg/dL (5-40)
== END ==
PROVIDERS: PCP Internal Medicine; Referring Provider Internal Medicine Rheumatology; Visit Provider Internal Medicine Rheumatology
DX: M05.79 Rheumatoid arthritis with rheumatoid factor of multiple sites without organ or systems involvement (principal); E78.5 Hyperlipidemia, unspecified; L40.59 Other psoriatic arthropathy; Z79.899 Other long term (current) drug therapy; M79.7 Fibromyalgia; L40.8 Other psoriasis; M70.60 Trochanteric bursitis, unspecified hip; K29.60 Other gastritis without bleeding; N20.0 Calculus of kidney; R51 Headache
CPT/HCPCS: 36415; 80053; 80061; 85025

== ENCOUNTER → 2019-11-01 11:26 | Outpatient (CLI) | payer OTHER, SELFPAY ==
[2019-11-06 05:07] LABS: QNTFERON TB Mitogen Value 7.21 IU/mL (.); QNTFERON TB Nil Value 0.05 IU/mL (.); QNTFERON TB1+ Ag Value 0.04 IU/mL (.); QNTFERON TB2+ Ag Value 0.04 IU/mL (.)
[2019-11-06 10:31] LABS: QNTIFERON TB Positive Criteria Negative (Negative)
== END ==
PROVIDERS: PCP Internal Medicine; Referring Provider Internal Medicine Rheumatology; Visit Provider Internal Medicine Rheumatology
DX: M05.79 Rheumatoid arthritis with rheumatoid factor of multiple sites without organ or systems involvement (principal); L40.59 Other psoriatic arthropathy; M79.7 Fibromyalgia; M70.60 Trochanteric bursitis, unspecified hip; K29.60 Other gastritis without bleeding; N20.0 Calculus of kidney; R51 Headache; Z79.899 Other long term (current) drug therapy
CPT/HCPCS: 36415; 86480

== ENCOUNTER → 2019-11-16 14:16 | Outpatient (CLI) | payer OTHER, SELFPAY ==
[2019-11-16 17:40] LABS: Absolute Lymphocyte Count 1.53 X10^3/uL (0.83-4.51); Absolute Neutrophil Count 3.2 X10^3/uL (2.0-7.7); Basophil# 0.03 X10^3/uL; Basophil% 0.5 % (0-1); Eosinophil# 0.29 X10^3/uL; Eosinophils% 5.1 % (0-5); Hematocrit 41.9 % (37-47); Hemoglobin 13.3 g/dL (12.0-15.0); Lymphocyte # 1.53 X10^3/ul (4.0); Lymphocyte % 27.1 % (19-41); Mean Corp Hgb Conc 31.7 g/dL (32-36); Mean Corpuscular Hgb 29.2 pg (27.0-32.0); Mean Corpuscular Volume 91.9 fL (81-99); Mean Platelet Vol. 10.6 fl (6.2-12.0); Monocyte# 0.55 X10^3/uL; Monocyte% 9.7 % (0-10); NRBC Flagged by Analyzer 0 % (0-5); Neutrophil # 3.24 X10^3/uL (2.7-7.7); Neutrophil % 57.4 % (47-70); Platelet Count 276 K/mm3 (150-450); RBC Distribution Width CV 12.7 % (11.6-14.6); RBC Distribution Width SD 42.9 fl (35.1-43.9); Red Blood Count 4.56 M/mm3 (4.2-5.4); White Blood Count 5.7 K/mm3 (4.4-11.0)
[2019-11-16 17:58] LABS: ALB/GLOB Ratio 0.9 RATIO (0.9-2.4); AST(SGOT) 21 U/L (15-37); Alanine Aminotransfer ALT/SGPT 26 U/L (13-56); Albumin, Serum 3.7 g/dL (3.2-5.0); Alkaline Phosphatase 87 U/L (45-117); Anion Gap 6 (5-15); BUN 20 mg/dL (7-18); BUN/Creat Ratio 17.2 RATIO (10-20); Calcium,Total 9.2 mg/dL (8.5-10.1); Chloride 107 mmol/L (98-107); Creatinine, Serum 1.16 mg/dL (0.55-1.02); EST Glomerular Filtration Rate 51 mL/min (>60); Est Glom Filt Rate - Afr Amer 61 mL/min (>60); Globulin 4.2 g/dL (2.2-4.2); Glucose 94 mg/dL (74-106); Potassium 3.8 mmol/L (3.5-5.1); Protein, Total 7.9 g/dL (6.4-8.2); Sodium Level 139 mmol/L (136-145)
== END ==
PROVIDERS: PCP Internal Medicine; Referring Provider Internal Medicine Rheumatology; Visit Provider Internal Medicine Rheumatology
DX: M05.79 Rheumatoid arthritis with rheumatoid factor of multiple sites without organ or systems involvement (principal); L40.59 Other psoriatic arthropathy; M79.7 Fibromyalgia; L40.8 Other psoriasis; M70.60 Trochanteric bursitis, unspecified hip; K29.60 Other gastritis without bleeding; N20.0 Calculus of kidney; Z79.899 Other long term (current) drug therapy
CPT/HCPCS: 36415; 80053; 85025

== ENCOUNTER → 2019-12-20 10:39 | Outpatient (CLI) | payer OTHER, SELFPAY ==
[2019-12-20 13:07] LABS: ALB/GLOB Ratio 0.9 RATIO (0.9-2.4); AST(SGOT) 23 U/L (15-37); Alanine Aminotransfer ALT/SGPT 37 U/L (13-56); Albumin, Serum 3.6 g/dL (3.2-5.0); Alkaline Phosphatase 81 U/L (45-117); Anion Gap 4 (5-15); BUN 20 mg/dL (7-18); BUN/Creat Ratio 16.9 RATIO (10-20); Calcium,Total 8.7 mg/dL (8.5-10.1); Chloride 105 mmol/L (98-107); Creatinine, Serum 1.18 mg/dL (0.55-1.02); EST Glomerular Filtration Rate 50 mL/min (>60); Est Glom Filt Rate - Afr Amer 60 mL/min (>60); Globulin 3.9 g/dL (2.2-4.2); Glucose 81 mg/dL (74-106); Potassium 3.9 mmol/L (3.5-5.1); Protein, Total 7.5 g/dL (6.4-8.2); Sodium Level 140 mmol/L (136-145)
== END ==
PROVIDERS: PCP Internal Medicine; Referring Provider Internal Medicine Rheumatology; Visit Provider Internal Medicine Rheumatology
DX: M05.79 Rheumatoid arthritis with rheumatoid factor of multiple sites without organ or systems involvement (principal); L40.59 Other psoriatic arthropathy; M70.60 Trochanteric bursitis, unspecified hip; K29.60 Other gastritis without bleeding; M79.7 Fibromyalgia; N20.0 Calculus of kidney; R51.9 Headache, unspecified; Z79.899 Other long term (current) drug therapy
CPT/HCPCS: 36415; 80053

== ENCOUNTER → 2020-02-05 09:26 | Outpatient (CLI) | payer OTHER, SELFPAY ==
[2020-02-05 12:29] LABS: Absolute Neutrophil Count 2.1 X10^3/uL (2.0-7.7); Basophil# 0.05 X10^3/uL; Basophil% 1.3 % (0-1); Eosinophil# 0.25 X10^3/uL; Eosinophils% 6.5 % (0-5); Hematocrit 39.9 % (37-47); Lymphocyte % 23.4 % (19-41); Mean Corp Hgb Conc 32.6 g/dL (32-36); Mean Corpuscular Hgb 29.7 pg (27.0-32.0); Mean Corpuscular Volume 91.3 fL (81-99); Mean Platelet Vol. 10.6 fl (6.2-12.0); Monocyte# 0.53 X10^3/uL; Monocyte% 13.8 % (0-10); NRBC Flagged by Analyzer 0 % (0-5); Neutrophil # 2.11 X10^3/uL (2.7-7.7); Neutrophil % 54.7 % (47-70); Platelet Count 260 K/mm3 (150-450); RBC Distribution Width CV 12.6 % (11.6-14.6); RBC Distribution Width SD 41.3 fl (35.1-43.9); Red Blood Count 4.37 M/mm3 (4.2-5.4); White Blood Count 3.9 K/mm3 (4.4-11.0)
[2020-02-05 12:39] LABS: ALB/GLOB Ratio 0.9 RATIO (0.9-2.4); AST(SGOT) 15 U/L (15-37); Alanine Aminotransfer ALT/SGPT 25 U/L (13-56); Albumin, Serum 3.7 g/dL (3.2-5.0); Alkaline Phosphatase 78 U/L (45-117); Anion Gap 4 (5-15); BUN 21 mg/dL (7-18); BUN/Creat Ratio 19.6 RATIO (10-20); Calcium,Total 8.8 mg/dL (8.5-10.1); Chloride 106 mmol/L (98-107); Creatinine, Serum 1.07 mg/dL (0.55-1.02); EST Glomerular Filtration Rate 56 mL/min (>60); Est Glom Filt Rate - Afr Amer 67 mL/min (>60); Globulin 3.9 g/dL (2.2-4.2); Glucose 81 mg/dL (74-106); Protein, Total 7.6 g/dL (6.4-8.2); Sodium Level 139 mmol/L (136-145)
== END ==
PROVIDERS: PCP Internal Medicine; Referring Provider Internal Medicine Rheumatology; Visit Provider Internal Medicine Rheumatology
DX: M05.79 Rheumatoid arthritis with rheumatoid factor of multiple sites without organ or systems involvement (principal); L40.59 Other psoriatic arthropathy; M79.7 Fibromyalgia; M70.60 Trochanteric bursitis, unspecified hip; Y93.9 Activity, unspecified; K29.60 Other gastritis without bleeding; N20.0 Calculus of kidney; R51.9 Headache, unspecified; Z79.899 Other long term (current) drug therapy
CPT/HCPCS: 36415; 80053; 85025

== ENCOUNTER 2020-04-25 10:25 | Outpatient (RCR) | payer OTHER, SELFPAY ==
[2020-05-01] MEDS: COVID-19 VACC, MRNA(PFIZER)/PF 30 MCG/0.3 ML SYRINGE IM (15:36)
[2020-05-22] MEDS: COVID-19 VACC, MRNA(PFIZER)/PF 30 MCG/0.3 ML SYRINGE IM (14:57)
== END 2020-04-25 23:59 ==
LOC: IMMUN 10:25
PROVIDERS: PCP Internal Medicine; Visit Provider Family Medicine
DX: Z23 Encounter for immunization (principal)
CPT/HCPCS: 0001A; 0002A; 91300

== ENCOUNTER → 2020-05-01 11:29 | Outpatient (CLI) | payer OTHER, SELFPAY ==
[2020-05-01 14:58] LABS: Absolute Lymphocyte Count 1.12 X10^3/uL (0.83-4.51); Absolute Neutrophil Count 3.1 X10^3/uL (2.0-7.7); Basophil# 0.03 X10^3/uL; Basophil% 0.6 % (0-1); Eosinophil# 0.18 X10^3/uL; Eosinophils% 3.7 % (0-5); Hematocrit 43.6 % (37-47); Lymphocyte # 1.12 X10^3/ul (4.0); Lymphocyte % 23.1 % (19-41); Mean Corp Hgb Conc 32.1 g/dL (32-36); Mean Corpuscular Hgb 28.9 pg (27.0-32.0); Mean Corpuscular Volume 89.9 fL (81-99); Mean Platelet Vol. 10.6 fl (6.2-12.0); Monocyte# 0.44 X10^3/uL; Monocyte% 9.1 % (0-10); NRBC Flagged by Analyzer 0 % (0-5); Neutrophil # 3.06 X10^3/uL (2.7-7.7); Neutrophil % 63.3 % (47-70); Platelet Count 286 K/mm3 (150-450); RBC Distribution Width CV 11.9 % (11.6-14.6); RBC Distribution Width SD 39.3 fl (35.1-43.9); Red Blood Count 4.85 M/mm3 (4.2-5.4); White Blood Count 4.8 K/mm3 (4.4-11.0)
[2020-05-01 15:30] LABS: ALB/GLOB Ratio 0.9 RATIO (0.9-2.4); AST(SGOT) 16 U/L (15-37); Alanine Aminotransfer ALT/SGPT 25 U/L (13-56); Albumin, Serum 3.8 g/dL (3.2-5.0); Alkaline Phosphatase 88 U/L (45-117); Anion Gap 6 (5-15); BUN 17 mg/dL (7-18); Calcium,Total 9.3 mg/dL (8.5-10.1); Chloride 103 mmol/L (98-107); Creatinine, Serum 1.21 mg/dL (0.55-1.02); EST Glomerular Filtration Rate 48 mL/min (>60); Est Glom Filt Rate - Afr Amer 58 mL/min (>60); Globulin 4.1 g/dL (2.2-4.2); Glucose 77 mg/dL (74-106); Potassium 3.7 mmol/L (3.5-5.1); Protein, Total 7.9 g/dL (6.4-8.2); Sodium Level 139 mmol/L (136-145)
== END ==
PROVIDERS: PCP Internal Medicine; Referring Provider Internal Medicine Rheumatology; Visit Provider Internal Medicine Rheumatology
DX: M05.79 Rheumatoid arthritis with rheumatoid factor of multiple sites without organ or systems involvement (principal); L40.59 Other psoriatic arthropathy; M79.7 Fibromyalgia; M70.60 Trochanteric bursitis, unspecified hip; K29.60 Other gastritis without bleeding; R51.9 Headache, unspecified; N20.0 Calculus of kidney; Z79.899 Other long term (current) drug therapy
CPT/HCPCS: 36415; 80053; 85025

== ENCOUNTER → 2020-06-02 08:38 | Outpatient (CLI) | payer OTHER, SELFPAY ==
[2020-06-02 10:04] LABS: ALB/GLOB Ratio 0.9 RATIO (0.9-2.4); AST(SGOT) 18 U/L (15-37); Alanine Aminotransfer ALT/SGPT 23 U/L (13-56); Albumin, Serum 3.6 g/dL (3.2-5.0); Alkaline Phosphatase 80 U/L (45-117); Anion Gap 2 (5-15); BUN 16 mg/dL (7-18); BUN/Creat Ratio 13.4 RATIO (10-20); Calcium,Total 9.4 mg/dL (8.5-10.1); Chloride 105 mmol/L (98-107); Creatinine, Serum 1.19 mg/dL (0.55-1.02); EST Glomerular Filtration Rate 49 mL/min (>60); Est Glom Filt Rate - Afr Amer 59 mL/min (>60); Glucose 77 mg/dL (74-106); Potassium 4.1 mmol/L (3.5-5.1); Protein, Total 7.6 g/dL (6.4-8.2); Sodium Level 138 mmol/L (136-145)
== END ==
PROVIDERS: PCP Internal Medicine; Referring Provider Internal Medicine Rheumatology; Visit Provider Internal Medicine Rheumatology
DX: M05.79 Rheumatoid arthritis with rheumatoid factor of multiple sites without organ or systems involvement (principal); L40.59 Other psoriatic arthropathy; M79.7 Fibromyalgia; M70.60 Trochanteric bursitis, unspecified hip; K29.60 Other gastritis without bleeding; N20.0 Calculus of kidney; R51.9 Headache, unspecified; Z79.899 Other long term (current) drug therapy
CPT/HCPCS: 36415; 80053

== ENCOUNTER → 2020-08-15 09:00 | Outpatient (CLI) | payer OTHER, SELFPAY ==
[2020-08-15 10:11] LABS: Absolute Lymphocyte Count 1.23 X10^3/uL (0.83-4.51); Absolute Neutrophil Count 2.4 X10^3/uL (2.0-7.7); Basophil# 0.03 X10^3/uL; Basophil% 0.7 % (0-1); Eosinophil# 0.22 X10^3/uL; Eosinophils% 5.1 % (0-5); Hematocrit 42.9 % (37-47); Hemoglobin 13.7 g/dL (12.0-15.0); Lymphocyte # 1.23 X10^3/ul (0.83-4.51); Lymphocyte % 28.3 % (19-41); Mean Corp Hgb Conc 31.9 g/dL (32-36); Mean Corpuscular Hgb 28.6 pg (27.0-32.0); Mean Corpuscular Volume 89.6 fL (81-99); Mean Platelet Vol. 10.3 fl (6.2-12.0); Monocyte# 0.46 X10^3/uL; Monocyte% 10.6 % (0-10); NRBC Flagged by Analyzer 0 % (0-5); Neutrophil # 2.38 X10^3/uL (2.7-7.7); Neutrophil % 54.8 % (47-70); Platelet Count 265 K/mm3 (150-450); RBC Distribution Width CV 12.4 % (11.6-14.6); RBC Distribution Width SD 40.9 fl (35.1-43.9); Red Blood Count 4.79 M/mm3 (4.2-5.4); White Blood Count 4.3 K/mm3 (4.4-11.0)
[2020-08-15 10:40] LABS: AST(SGOT) 15 U/L (15-37); Alanine Aminotransfer ALT/SGPT 24 U/L (13-56); Albumin, Serum 3.7 g/dL (3.2-5.0); Alkaline Phosphatase 90 U/L (45-117); Anion Gap 6 (5-15); BUN 21 mg/dL (7-18); BUN/Creat Ratio 18.6 RATIO (10-20); Chloride 104 mmol/L (98-107); Creatinine, Serum 1.13 mg/dL (0.55-1.02); EST Glomerular Filtration Rate 52 mL/min (>60); Est Glom Filt Rate - Afr Amer 63 mL/min (>60); Globulin 3.8 g/dL (2.2-4.2); Glucose 85 mg/dL (74-106); Protein, Total 7.5 g/dL (6.4-8.2); Sodium Level 138 mmol/L (136-145)
== END ==
PROVIDERS: PCP Internal Medicine; Referring Provider Internal Medicine Rheumatology; Visit Provider Internal Medicine Rheumatology
DX: M05.79 Rheumatoid arthritis with rheumatoid factor of multiple sites without organ or systems involvement (principal); L40.59 Other psoriatic arthropathy; M79.7 Fibromyalgia; M70.60 Trochanteric bursitis, unspecified hip; Y93.9 Activity, unspecified; K29.60 Other gastritis without bleeding; N20.0 Calculus of kidney; R51.9 Headache, unspecified; Z79.899 Other long term (current) drug therapy
CPT/HCPCS: 36415; 80053; 85025

== ENCOUNTER → 2020-11-13 09:02 | Outpatient (CLI) | payer OTHER, SELFPAY ==
[2020-11-13 10:07] LABS: Absolute Lymphocyte Count 1.01 X10^3/uL (0.83-4.51); Absolute Neutrophil Count 3.7 X10^3/uL (2.0-7.7); Basophil# 0.03 X10^3/uL; Basophil% 0.6 % (0-1); Eosinophil# 0.18 X10^3/uL; Eosinophils% 3.4 % (0-5); Hematocrit 42.9 % (37-47); Hemoglobin 13.9 g/dL (12.0-15.0); Lymphocyte # 1.01 X10^3/ul (0.83-4.51); Lymphocyte % 18.9 % (19-41); Mean Corp Hgb Conc 32.4 g/dL (32-36); Mean Corpuscular Volume 89.4 fL (81-99); Mean Platelet Vol. 10.1 fl (6.2-12.0); Monocyte# 0.37 X10^3/uL; Monocyte% 6.9 % (0-10); NRBC Flagged by Analyzer 0 % (0-5); Neutrophil # 3.73 X10^3/uL (2.7-7.7); Neutrophil % 69.8 % (47-70); Platelet Count 263 K/mm3 (150-450); RBC Distribution Width CV 12.5 % (11.6-14.6); RBC Distribution Width SD 40.9 fl (35.1-43.9); White Blood Count 5.3 K/mm3 (4.4-11.0)
[2020-11-13 10:34] LABS: ALB/GLOB Ratio 0.8 RATIO (0.9-2.4); AST(SGOT) 17 U/L (15-37); Alanine Aminotransfer ALT/SGPT 23 U/L (13-56); Albumin, Serum 3.5 g/dL (3.2-5.0); Alkaline Phosphatase 91 U/L (45-117); Anion Gap 8 (5-15); BUN 18 mg/dL (7-18); BUN/Creat Ratio 16.7 RATIO (10-20); Chloride 104 mmol/L (98-107); Creatinine, Serum 1.08 mg/dL (0.55-1.02); EST Glomerular Filtration Rate 55 mL/min (>60); Est Glom Filt Rate - Afr Amer 66 mL/min (>60); Globulin 4.2 g/dL (2.2-4.2); Glucose 94 mg/dL (74-106); Potassium 3.5 mmol/L (3.5-5.1); Protein, Total 7.7 g/dL (6.4-8.2); Sodium Level 140 mmol/L (136-145)
== END ==
PROVIDERS: PCP Family Medicine; Referring Provider Internal Medicine Rheumatology; Visit Provider Internal Medicine Rheumatology
DX: M05.79 Rheumatoid arthritis with rheumatoid factor of multiple sites without organ or systems involvement (principal); M79.7 Fibromyalgia; L40.8 Other psoriasis; M70.60 Trochanteric bursitis, unspecified hip; K29.60 Other gastritis without bleeding; N20.0 Calculus of kidney; R51.9 Headache, unspecified; Z79.899 Other long term (current) drug therapy
CPT/HCPCS: 36415; 80053; 85025

== ENCOUNTER → 2020-12-01 12:04 | Outpatient (CLI) | payer OTHER, SELFPAY ==
[2020-12-01 12:09] LABS: Bacteria 0 SEEN /hpf (None Seen); Mucous, Urine 0 SEEN /hpf (<or=2+)
[2020-12-01 15:24] LABS: Color, Urine Yellow (Yellow); Glucose, Dipstick Normal (Normal); Ketone-Dipstick Negative (Negative); Leukocyte Esterase-Dipstick 25 /ul (Negative); Nitrite-Dipstick Negative (Negative); Occult Blood-Urine 50 /ul (Negative); Protein-Dipstick Negative (Negative); Urine Bilirubin Dipstick Negative (Negative); Urine Clarity Clear (Clear); Urine Urobilinogen Normal (Normal)
[2020-12-01 15:34] LABS: Vitamin B12 393 pg/mL (211-911); Vitamin D,25 Hydroxy 22.8 ng/mL
[2020-12-01 15:47] LABS: ALB/GLOB Ratio 0.8 RATIO (0.9-2.4); AST(SGOT) 25 U/L (15-37); Alanine Aminotransfer ALT/SGPT 28 U/L (13-56); Albumin, Serum 3.8 g/dL (3.2-5.0); Alkaline Phosphatase 96 U/L (45-117); Anion Gap 8 (5-15); BUN 12 mg/dL (7-18); BUN/Creat Ratio 11.2 RATIO (10-20); Calcium,Total 9.1 mg/dL (8.5-10.1); Chloride 103 mmol/L (98-107); Cholesterol 238 mg/dL (200); Creatinine, Serum 1.07 mg/dL (0.55-1.02); EST Glomerular Filtration Rate 55 mL/min (>60); Est Glom Filt Rate - Afr Amer 67 mL/min (>60); Globulin 4.7 g/dL (2.2-4.2); Glucose 85 mg/dL (74-106); High Density Lipoprotein 71 mg/dL; Phosphorus 3.8 mg/dL (2.5-4.9); Potassium 3.7 mmol/L (3.5-5.1); Protein, Total 8.5 g/dL (6.4-8.2); Sodium Level 139 mmol/L (136-145); Thyroid Stim Hormone (TSH) 1.29 uIU/mL (0.358-3.74); Triglycerides 135 mg/dL; Very Low Density Lipoprotein 27 mg/dL (5-40)
[2020-12-01 15:59] LABS: Red Blood Cells-Urine 0-5 SEEN /hpf (0-5); Squamous Epithelial Cells - UA 0-5 SEEN /hpf (5-10); White Blood Cells 0-5 SEEN /hpf (0-5)
[2020-12-01 16:01] LABS: Microalbumin,Random Urine 24.5 mg/L (NO RANGE EST.); Microalbumin:Creatinine Ratio 27.5 mg/g CRE (<30 mg/g CRE); Protein, Urine (Random) 9.9 mg/dL (<11.9); Protein:Creat Ratio 111 mg/g CRE (0-200)
[2020-12-02 10:58] LABS: PTHIN 39.1 pg/mL (18.4-80.1)
== END ==
LOC: MFPLAB 12:05
PROVIDERS: PCP Family Medicine; Visit Provider Family Medicine
DX: I12.9 Hypertensive chronic kidney disease with stage 1 through stage 4 chronic kidney disease, or unspecified chronic kidney disease (principal); E78.5 Hyperlipidemia, unspecified; N18.30 Chronic kidney disease, stage 3 unspecified; E55.9 Vitamin D deficiency, unspecified; R41.3 Other amnesia
CPT/HCPCS: 80053; 80061; 81001; 82043; 82306; 82570; 82607; 83970; 84100; 84156; 84443

== ENCOUNTER → 2020-12-23 11:48 | Outpatient (CLI) | payer OTHER, SELFPAY ==
[2020-12-23 15:28] LABS: ALB/GLOB Ratio 0.8 RATIO (0.9-2.4); AST(SGOT) 19 U/L (15-37); Alanine Aminotransfer ALT/SGPT 24 U/L (13-56); Albumin, Serum 3.5 g/dL (3.2-5.0); Alkaline Phosphatase 90 U/L (45-117); Anion Gap 6 (5-15); BUN 24 mg/dL (7-18); BUN/Creat Ratio 21.4 RATIO (10-20); Calcium,Total 9.2 mg/dL (8.5-10.1); Chloride 106 mmol/L (98-107); Creatinine, Serum 1.12 mg/dL (0.55-1.02); EST Glomerular Filtration Rate 53 mL/min (>60); Est Glom Filt Rate - Afr Amer 64 mL/min (>60); Globulin 4.4 g/dL (2.2-4.2); Glucose 91 mg/dL (74-106); Potassium 3.3 mmol/L (3.5-5.1); Protein, Total 7.9 g/dL (6.4-8.2); Sodium Level 139 mmol/L (136-145)
[2020-12-25 16:09] LABS: PROEL- A/G Ratio 1.2 (0.7-1.7); PROEL- Albumin 3.9 g/dL (2.9-4.4); PROEL- Alpha-1 Globulin 0.2 g/dL (0.0-0.4); PROEL- Alpha-2 Globulin 0.6 g/dL (0.4-1.0); PROEL- Beta Globulin 1.2 g/dL (0.7-1.3); PROEL- Gamma Globulin 1.3 g/dL (0.4-1.8); PROEL- Globulin, Total 3.2 g/dL (2.2-3.9); PROEL- TOTAL PROTEIN 7.1 g/dL (6.0-8.5)
== END ==
LOC: MFPLAB 11:49
PROVIDERS: PCP Family Medicine; Referring Provider Family Medicine; Visit Provider Family Medicine
DX: N18.30 Chronic kidney disease, stage 3 unspecified (principal)
CPT/HCPCS: 36415; 80053; 84165

== ENCOUNTER 2021-03-31 09:00 | Outpatient (CLI) | payer OTHER, MEDICAID, SELFPAY ==
--- NOTE | 2021-03-31 10:39 | RAD_ITS ---
History: vomiting Acute abdominal series: Findings: AP supine and upright views of the abdomen demonstrate normal bowel gas pattern. No free air, organomegaly or pathologic calcification. Psoas muscle margins are well delineated. Osseous structures appear normal. Single frontal view of the chest shows the lungs to be clear. Heart is normal size. Mediastinum and hilar structures are normal. No pleural effusion. IMPRESSION: Normal acute abdominal series. at 0825 Reported and signed by: Bernard Nye MD Electronically Signed: Bernard Nye MD at 8:23 EST , RAD/Acute Abdomen Inc Chest
[2021-03-31 10:46] LABS: Absolute Lymphocyte Count 1.08 X10^3/uL (0.83-4.51); Absolute Neutrophil Count 4.7 X10^3/uL (2.0-7.7); Basophil# 0.05 X10^3/uL; Basophil% 0.7 % (0-1); Eosinophil# 0.38 X10^3/uL; Eosinophils% 5.7 % (0-5); Hematocrit 45.7 % (37-47); Hemoglobin 15.3 g/dL (12.0-15.0); Lymphocyte # 1.08 X10^3/ul (0.83-4.51); Lymphocyte % 16.1 % (19-41); Mean Corp Hgb Conc 33.5 g/dL (32-36); Mean Corpuscular Volume 89.6 fL (81-99); Mean Platelet Vol. 10.3 fl (6.2-12.0); Monocyte# 0.46 X10^3/uL; Monocyte% 6.8 % (0-10); NRBC Flagged by Analyzer 0 % (0-5); Neutrophil # 4.73 X10^3/uL (2.7-7.7); Neutrophil % 70.4 % (47-70); Platelet Count 349 K/mm3 (150-450); RBC Distribution Width CV 13.7 % (11.6-14.6); RBC Distribution Width SD 42.6 fl (35.1-43.9); White Blood Count 6.7 K/mm3 (4.4-11.0)
[2021-03-31 10:56] LABS: PTHIN 38.1 pg/mL (18.4-80.1)
[2021-03-31 11:00] LABS: Vitamin D,25 Hydroxy 51.7 ng/mL
[2021-03-31 11:15] LABS: ALB/GLOB Ratio 0.9 RATIO (0.9-2.4); AST(SGOT) 18 U/L (15-37); Alanine Aminotransfer ALT/SGPT 23 U/L (13-56); Albumin, Serum 3.8 g/dL (3.2-5.0); Alkaline Phosphatase 94 U/L (45-117); Anion Gap 8 (5-15); BUN 21 mg/dL (7-18); BUN/Creat Ratio 17.4 RATIO (10-20); Calcium,Total 9.3 mg/dL (8.5-10.1); Chloride 104 mmol/L (98-107); Cholesterol 220 mg/dL (200); Creatinine, Serum 1.21 mg/dL (0.55-1.02); EST Glomerular Filtration Rate 48 mL/min (>60); Est Glom Filt Rate - Afr Amer 58 mL/min (>60); Globulin 4.3 g/dL (2.2-4.2); Glucose 97 mg/dL (74-106); High Density Lipoprotein 58 mg/dL; Phosphorus 3.4 mg/dL (2.5-4.9); Potassium 3.4 mmol/L (3.5-5.1); Protein, Total 8.1 g/dL (6.4-8.2); Sodium Level 140 mmol/L (136-145); Triglycerides 140 mg/dL; Very Low Density Lipoprotein 28 mg/dL (5-40)
[2021-03-31 11:21] LABS: Protein, Urine (Random) 73.5 mg/dL (<11.9); Protein:Creat Ratio 151 mg/g CRE (0-200)
== END 2021-03-31 23:59 | disposition home or self-care (01) ==
PROVIDERS: PCP Family Medicine; Referring Provider Family Medicine; Visit Provider Family Medicine
DX: R11.10 Vomiting, unspecified (principal); N18.30 Chronic kidney disease, stage 3 unspecified; E55.9 Vitamin D deficiency, unspecified; E78.5 Hyperlipidemia, unspecified
CPT/HCPCS: 36415; 74019; 74022; 80053; 80061; 82306; 82570; 83970; 84100; 84156; 85025

== ENCOUNTER 2021-04-02 09:09 | Emergency (ER) | payer OTHER, MEDICAID, SELFPAY ==
[2021-04-02 09:10] VITALS: BP 113/77; PULSE 97; RESP 15; TEMP 36; O2SAT 100; BMI 19.4
[2021-04-02 09:12] VITALS: BP 113/77; PULSE 97; RESP 15; TEMP 36; O2SAT 100
--- NOTE | 2021-04-02 10:07 | EDS_ITS ---
HPI HPI - GI History of Present Illness Chief Complaint: Nausea/Vomiting Informant: patient Abdominal Pain/Flank Pain Onset: Days (9) Context: Gradual Onset Timing: Waxes and wanes Quality: Aching Location: Epigastric (And periumbilical area) Worsened by: Nothing Relieved by: - (Vomiting) Nausea/Vomiting/Emesis GI Symptom: Positive for Nausea and Vomiting Quality: Negative for Coffee ground and Hematemesis Diarrhea/Melena/Hematochezia GI Symptom: Positive for Diarrhea; Negative for Melena and Hematochezia Associated Symptoms Associated Symptoms: Negative for Dysuria, Frequency and Hematuria Narrative Narrative: Patient presents with abdominal pain, nausea, and vomiting that has been constant for the past 9 days. Patient states it waxes and wanes. Patient states nothing seems to make it better nothing makes it worse. Patient states her primary care physician prescribed her Zofran which has not been helping. Patient states she is vomiting up clear liquids. Patient denies any hematemesis or coffee-ground emesis. Patient states her pain is over the epigastric and periumbilical area. Patient states it is better after she vomits. Patient admits to some diarrhea but denies any melena or hematochezia. Patient denies any dysuria, frequency, or hematuria. PFSH PFS Medical History (Updated 04/02/21 @ 13:[address] Juan Sheikh, DO) Rheumatoid arthritis Home Medications fluoxetine 10 mg PO DAILY 05/30/17 [History Last Taken Unknown] folic acid 2 mg PO DAILY 05/30/17 [History Last Taken Unknown] lisinopril [Prinivil] 5 mg PO DAILY 05/30/17 [History Last Taken Unknown] methotrexate sodium (PF) 7.5 ml IM QWEEK 05/30/17 [History Last Taken Unknown] omeprazole 20 mg PO DAILY #30 cap 05/30/17 [Rx Last Taken Unknown] pravastatin 20 mg PO QHS 05/30/17 [History Last Taken Unknown] tofacitinib [Xeljanz Xr] 11 mg PO QHS 05/30/17 [History Last Taken Unknown] tramadol 50 mg PO TID 05/30/17 [History Last Taken Unknown] Allergy/AdvReac Type Severity Reaction Status Date / Time codeine Allergy Chest Verified 06/04/20 15:45 tightness Surgical History Hx of cholecystectomy Social History Smoking Status: Never smoker ROS ROS ED Constitutional Constitutional ED: Denies chills or fever(s) Eyes Eyes: Denies blurry vision or change in vision ENT ENT ED: Reports sore throat; Denies rhinorrhea Cardiovascular Cardiovascular: Denies chest pain or palpitations Respiratory/Chest Respiratory/Chest: Denies cough or dyspnea Gastrointestinal Gastrointestinal: Reports abdominal pain, diarrhea, nausea and vomiting Genitourinary Genitourinary ED: Denies dysuria or hematuria Musculoskeletal Musculoskeletal: Denies back pain or neck pain Integumentary Denies abscess or rash Neurologic Neurologic: Denies headache(s) or weakness Allergic/Immunologic Allergic/Immunologic ED: Denies mouth swelling or urticaria EXAM Physical Exam Const Vital Signs: 04/02/21 09:10 04/02/21 09:12 04/02/21 11:32 Temperature 96.8 F L 96.8 F L Temperature Source Temporal Temporal Pulse Rate 97 97 75 Respiratory Rate 15 15 18 Blood Pressure 113/77 113/77 142/78 H Blood Pressure Mean 89 89 99 Pulse Ox 100 100 98 Oxygen Delivery Method Room Air Room Air Room Air 04/02/21 13:10 Temperature 97.5 F L Temperature Source Oral Pulse Rate 87 Respiratory Rate 16 Blood Pressure 124/66 H Blood Pressure Mean 85 Pulse Ox 99 Oxygen Delivery Method Room Air Positive well nourished and well developed General Appearance ED: well developed HEENT Reports moist mucous membranes Neck supple and no JVD Resp normal respiratory effort and clear to auscultation bilaterally Cardio regular rate, regular rhythm and no murmurs GI normal to inspection, nondistended, normoactive bowel sounds Palpation: soft and tender epigastric and periumbilical; Negative for guarding or rebound tenderness present Extremity normal to inspection General Extremety ED: Negative for edema or tenderness General Extremity: Negative for edema Neuro oriented x3, CN's II-XII intact bilaterally and no sensory deficits noted Sensorium / Orientation: alert Motor Exam: strength 5/5 throughout Psych mental status grossly normal Skin no rashes or lesions noted MDM MDM MDM Narrative Medical decision making narrative: Patient was given IV fluids, morphine, and Zofran. CBC was essentially within normal limits. Comprehensive metabolic profile showed slightly elevated BUN and creatinine of 28 and 1.26. The remainder was within normal limits. Lipase was normal. Urinalysis does not show any evidence of urinary tract infection. CT scan of the abdomen pelvis with oral and IV contrast was ordered. Patient was unable to keep down the oral contrast. Patient was given a dose of Reglan. Patient was feeling better after this. CT scan of the abdomen pelvis was obtained. There is sigmoid diverticulosis but no evidence of diverticulitis. There is no acute intra- abdominal abnormality. This was interpreted by the radiologist and reviewed by myself. Patient was advised of her findings. Patient was instructed to start with small amounts of liquids more frequently and advance as tolerated. Patient was instructed to follow-up with her primary care physician for further evaluation. Patient understood and was agreeable with the plan. All questions were answered. Lab Data Attestation: I reviewed the patient's lab results. Labs: Laboratory Results - last 24 hr 04/02/21 04/02/21 04/02/21 10:25 10:30 10:30 WBC 7.5 RBC 5.34 Hgb 15.2 H Hct 46.1 MCV 86.3 MCH 28.5 MCHC 33.0 RDW Std Deviation 40.8 RDW Coeff of Andreia 13.2 Plt Count 296 MPV 10.1 Immature Gran % (Auto) 0.300 Neut % (Auto) 67.5 Lymph % (Auto) 16.9 L Banks % (Auto) 7.5 Eos % (Auto) 7.1 H Baso % (Auto) 0.7 Absolute Neuts (auto) 5.0 Absolute Lymphs (auto) 1.26 Nucleated RBC % 0 Sodium 141 Potassium 3.3 L Chloride 106 Carbon Dioxide 29.0 Anion Gap 6 BUN 28 H Creatinine 1.26 H Estim Creat Clear Calc 39.28 Est GFR (MDRD) Af Amer 55 L Est GFR (MDRD) Non-Af 46 L BUN/Creatinine Ratio 22.2 H Glucose 94 Calcium 9.5 Total Bilirubin 0.80 AST 22 ALT 26 Alkaline Phosphatase 82 Total Protein 7.6 Albumin 3.8 Globulin 3.8 Albumin/Globulin Ratio 1.0 Lipase 78 Urine Color Yellow Urine Clarity Clear Urine pH 5.0 Ur Specific [place] 1.025 Urine Protein 30 H Urine Glucose (UA) Normal Urine Ketones 150 A* Urine Occult Blood 50 H Urine Nitrite Negative Urine Bilirubin 1 H Urine Urobilinogen 1 H Ur Leukocyte Esterase 100 H Urine RBC 0 SEEN Urine WBC 0-5 SEEN Ur Squamous Epith Cells 0-5 SEEN Urine Bacteria 0 SEEN Hyaline Casts 0-5 SEEN Urine Mucus 0 SEEN Radiography Diagnostic Testing: Clinical Impression(s) from Imaging Studies Abdomen/Pelvis CT 04/02/21 10:12 IMPRESSION: Sigmoid diverticulosis. Status post cholecystectomy. Electronically Signed: Jean Pierre Sands MD at 13:03 EST , Discharge Plan Triage Chief Complaint: Nausea/Vomiting ED Provider: Juan Sheikh Dx/Rx/DC Orders Clinical Impression: Nausea vomiting and diarrhea Instructions: ED Vomiting (Adult) Prescriptions: No Action lisinopril [Prinivil] 5 MG tablet 5 mg PO DAILY RF: 0 fluoxetine 20 MG capsule 10 mg PO DAILY RF: 0 pravastatin 20 MG tablet 20 mg PO QHS RF: 0 tramadol 50 MG tablet 50 mg PO TID RF: 0 folic acid 1 MG tablet 2 mg PO DAILY RF: 0 tofacitinib [Xeljanz XR] 11 MG Tab.Er.24h 11 mg PO QHS RF: 0 methotrexate sodium (PF) 1 GM Vial 7.5 ml IM QWEEK RF: 0 omeprazole 20 MG capsule 20 mg PO DAILY Qty: 30 RF: 0 Primary Care Provider: Reji Abdi Referrals: Reji Abdi MD [Primary Care Provider] - 3-5 Days Disposition Disposition: Home, Self Care
--- NOTE | 2021-04-02 10:12 | CT_ITS ---
STUDY: CT ABDOMEN AND PELVIS WITH CONTRAST REASON FOR EXAM: Female, 60 years old. Abdominal pain -- IV PO Contrast RADIATION DOSAGE (If Supplied By Facility): CTDIvol = ( 8.42 ) mGy, DLP = ( 325.95 ) mGycm TECHNIQUE: Transaxial images were obtained from the dome of the diaphragm to the symphysis pubis without oral contrast. IV 100mL Isovue-300 was administered. Sagittal and coronal images were reconstructed. Individualized dose optimization techniques were used for this CT. COMPARISON: Comparison is made with prior study dated 05/30/2017. FINDINGS: The visualized lung bases are unremarkable. The visualized portions of the heart are within normal limits. Normal liver. The patient is status post cholecystectomy. Normal spleen. Normal pancreas. Normal bilateral adrenal glands. Normal right kidney. Normal left kidney. Normal visualized stomach. Normal small intestine. There are multiple colonic diverticula consistent with diverticulosis. The appendix is visualized and appears normal. There is scattered atherosclerotic calcification of the abdominal aorta, without a demonstrated aneurysm. Normal inferior vena cava. Normal retroperitoneum. Normal urinary bladder. Normal abdominal wall. Normal osseous structures. CT/Abdomen/Pelvis WITH Contrast IMPRESSION: Sigmoid diverticulosis. Status post cholecystectomy. Electronically Signed: Jean Pierre Sands MD at 13:03 EST ,
[2021-04-02 10:31] LABS: Bacteria 0 SEEN /hpf (None Seen); Mucous, Urine 0 SEEN /hpf (<or=2+); Red Blood Cells-Urine 0 SEEN /hpf (0-5)
[2021-04-02] MEDS: Ondansetron 4 MG/2 ML Vial IV (10:35)
[2021-04-02] MEDS: 0.9% Normal Saline 1,000 ML 1000 ML IV (10:35)
[2021-04-02] MEDS: Morphine 4 MG/ML Syringe IV (10:36)
[2021-04-02 10:41] LABS: Hematocrit 46.1 % (37-47); Hemoglobin 15.2 g/dL (12.0-15.0); Mean Corpuscular Hgb 28.5 pg (27.0-32.0); Mean Corpuscular Volume 86.3 fL (81-99); RBC Distribution Width CV 13.2 % (11.6-14.6); RBC Distribution Width SD 40.8 fl (35.1-43.9); Red Blood Count 5.34 M/mm3 (4.2-5.4); White Blood Count 7.5 K/mm3 (4.4-11.0)
[2021-04-02 10:42] LABS: Absolute Lymphocyte Count 1.26 X10^3/uL (0.83-4.51); Basophil# 0.05 X10^3/uL; Basophil% 0.7 % (0-1); Eosinophil# 0.53 X10^3/uL; Eosinophils% 7.1 % (0-5); Lymphocyte # 1.26 X10^3/ul (0.83-4.51); Lymphocyte % 16.9 % (19-41); Mean Platelet Vol. 10.1 fl (6.2-12.0); Monocyte# 0.56 X10^3/uL; Monocyte% 7.5 % (0-10); NRBC Flagged by Analyzer 0 % (0-5); Neutrophil # 5.04 X10^3/uL (2.7-7.7); Neutrophil % 67.5 % (47-70); Platelet Count 296 K/mm3 (150-450)
[2021-04-02 10:44] LABS: Color, Urine Yellow (Yellow); Glucose, Dipstick Normal (Normal); Ketone-Dipstick 150 mg/dl (Negative); Leukocyte Esterase-Dipstick 100 /ul (Negative); Nitrite-Dipstick Negative (Negative); Occult Blood-Urine 50 /ul (Negative); Protein-Dipstick 30 mg/dl (Negative); Specific Gravity, Urine 1.025 (1.002-1.030); Urine Bilirubin Dipstick 1 mg/dL (Negative); Urine Clarity Clear (Clear); Urine Urobilinogen 1 mg/dl (Normal)
[2021-04-02 10:57] LABS: AST(SGOT) 22 U/L (15-37); Alanine Aminotransfer ALT/SGPT 26 U/L (13-56); Albumin, Serum 3.8 g/dL (3.2-5.0); Alkaline Phosphatase 82 U/L (45-117); Anion Gap 6 (5-15); BUN 28 mg/dL (7-18); BUN/Creat Ratio 22.2 RATIO (10-20); Calcium,Total 9.5 mg/dL (8.5-10.1); Chloride 106 mmol/L (98-107); Creatinine, Serum 1.26 mg/dL (0.55-1.02); EST Glomerular Filtration Rate 46 mL/min (>60); Est Glom Filt Rate - Afr Amer 55 mL/min (>60); Estimated Creatinine Clearance 39.28 ml/min; Globulin 3.8 g/dL (2.2-4.2); Glucose 94 mg/dL (74-106); Lipase 78 U/L (73-393); Potassium 3.3 mmol/L (3.5-5.1); Protein, Total 7.6 g/dL (6.4-8.2); Sodium Level 141 mmol/L (136-145)
[2021-04-02 11:03] LABS: Hyaline Cast 0-5 SEEN /lpf (0-5); Squamous Epithelial Cells - UA 0-5 SEEN /hpf (5-10); White Blood Cells 0-5 SEEN /hpf (0-5)
[2021-04-02 11:32] VITALS: BP 142/78; PULSE 75; RESP 18; O2SAT 98
[2021-04-02] MEDS: Metoclopramide 10 MG/2 ML Vial IV (11:50)
--- NOTE | 2021-04-02 12:37 | ED.RN ---
Patient refusing to drink the CT drink. notified.
[2021-04-02 13:10] VITALS: BP 124/66; PULSE 87; RESP 16; TEMP 36.4; O2SAT 99
[2021-04-02 14:16] VITALS: PULSE 88; RESP 16; O2SAT 98
== END 2021-04-02 23:59 | disposition home or self-care (01) ==
PROVIDERS: Emergency Provider Emergency Medicine; PCP Family Medicine; Visit Provider Emergency Medicine
DX: R11.2 Nausea with vomiting, unspecified (principal); M06.9 Rheumatoid arthritis, unspecified; R19.7 Diarrhea, unspecified; Z79.899 Other long term (current) drug therapy
CPT/HCPCS: 74177; 80053; 81001; 83690; 85025; 96361; 96374; 96375; 99283; J7030; Q9967; A4216; J2405

== ENCOUNTER 2021-07-02 12:01 | Emergency (ER) | payer MEDICAID, SELFPAY ==
[2021-07-02 12:02] VITALS: BP 152/90; PULSE 82; RESP 16; TEMP 37.1; O2SAT 98; BMI 20.3
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
--- NOTE | 2021-07-02 12:27 | CT_ITS ---
STUDY: CT BRAIN WITHOUT CONTRAST REASON FOR EXAM: Female, 60 years old. Injury/Pain RADIATION DOSAGE (If Supplied By Facility): CTDIvol = ( 44.99 ) mGy, DLP = ( 745.49 ) mGycm TECHNIQUE: Transaxial CT imaging of the brain was performed without administration of intravenous contrast material. Individualized dose optimization techniques were used for this CT. COMPARISON: No relevant priors. FINDINGS: Normal soft tissue structures. Normal calvarium. Normal size ventricles and extra-axial spaces for the patient''s age. Normal white matter tracts of the cerebral hemispheres. Normal basal ganglia and thalami. Normal brainstem. Normal cerebellum. There is no intracranial hemorrhage. There are no findings of an acute ischemic infarction. Normal visualized paranasal sinuses. CT/Brain/Head without Contrast IMPRESSION: Normal unenhanced CT scan of the brain. Electronically Signed: Edison Mcguire MD at 13:22 EDT ,
--- NOTE | 2021-07-02 12:27 | CT_ITS ---
STUDY: CT CERVICAL SPINE WITHOUT CONTRAST REASON FOR EXAM: Female, 60 years old. Injury/Pain RADIATION DOSAGE (If Supplied By Facility): CTDIvol = ( 12.04 ) mGy, DLP = ( 227.69 ) mGycm TECHNIQUE: High resolution transaxial imaging was performed without contrast material. Sagittal and coronal images were reconstructed. Individualized dose optimization techniques were used for this CT. COMPARISON: None FINDINGS: Normal craniovertebral junction. Normal anterior atlantoaxial articulation. Normal odontoid process. Normal cervical lordosis. Normal vertebral bodies and posterior osseous elements. C2-3: Mild right facet hypertrophy with ankylosis of facet joint. No spinal stenosis or neural foraminal stenosis. C3-4: Normal endplates. Normal disc height and morphology. Normal central canal and intervertebral neuroforamina. C4-5: 2 mm retrolisthesis of C4 on C5 with a mild broad disc osteophyte complex and bilateral hypertrophy produces mild spinal stenosis and mild bilateral neural foraminal stenosis. C5-6: 2 mm retrolisthesis of C5 on C6 with a mild broad disc osteophyte complex and bilateral vertebral hypertrophy produces mild spinal stenosis and mild bilateral neural foraminal stenosis. C6-7: Normal endplates. Normal disc height and morphology. Normal central canal and intervertebral neuroforamina. C7-T1: 2 mm of anterolisthesis of C7 on T1 without spinal stenosis or neural foraminal stenosis. Normal visualized soft tissue structures. CT/Spine Cervical without Contras IMPRESSION: No acute fracture or subluxation. Electronically Signed: Edison Mcguire MD at 13:25 EDT ,
[2021-07-02 13:42] VITALS: BP 149/85; PULSE 81; RESP 16; O2SAT 98
== END 2021-07-02 13:43 | disposition home or self-care (01) ==
PROVIDERS: Emergency Provider Emergency Medicine; PCP Family Medicine; Visit Provider Emergency Medicine
DX: S09.90XA Unspecified injury of head, initial encounter (principal); L40.50 Arthropathic psoriasis, unspecified; M06.9 Rheumatoid arthritis, unspecified; M05.79 Rheumatoid arthritis with rheumatoid factor of multiple sites without organ or systems involvement; L40.59 Other psoriatic arthropathy; S16.1XXA Strain of muscle, fascia and tendon at neck level, initial encounter; V49.40XA Driver injured in collision with unspecified motor vehicles in traffic accident, initial encounter; Y92.410 Unspecified street and highway as the place of occurrence of the external cause; Z79.899 Other long term (current) drug therapy; L40.8 Other psoriasis; M70.60 Trochanteric bursitis, unspecified hip; K29.60 Other gastritis without bleeding; N20.0 Calculus of kidney
CPT/HCPCS: 36415; 70450; 72125; 80053; 85025; 85652; 86140; 86480; 99284

== ENCOUNTER → 2021-07-02 | Outpatient (CLI) | payer MEDICAID, SELFPAY ==
[2021-07-02 12:41] LABS: Erythrocyte Sedimentation Rate 34 mm/hr (0-30)
[2021-07-02 12:45] LABS: Absolute Lymphocyte Count 0.94 X10^3/uL (0.83-4.51); Absolute Neutrophil Count 7.4 X10^3/uL (2.0-7.7); Basophil# 0.02 X10^3/uL; Basophil% 0.2 % (0-1); Eosinophil# 0.01 X10^3/uL; Eosinophils% 0.1 % (0-5); Hematocrit 44.7 % (37-47); Hemoglobin 14.8 g/dL (12.0-15.0); Lymphocyte # 0.94 X10^3/ul (0.83-4.51); Lymphocyte % 10.8 % (19-41); Mean Corp Hgb Conc 33.1 g/dL (32-36); Mean Corpuscular Hgb 29.1 pg (27.0-32.0); Mean Corpuscular Volume 87.8 fL (81-99); Mean Platelet Vol. 10.3 fl (6.2-12.0); Monocyte# 0.31 X10^3/uL; Monocyte% 3.6 % (0-10); NRBC Flagged by Analyzer 0 % (0-5); Neutrophil # 7.39 X10^3/uL (2.7-7.7); Neutrophil % 84.8 % (47-70); Platelet Count 364 K/mm3 (150-450); RBC Distribution Width CV 12.7 % (11.6-14.6); RBC Distribution Width SD 41.1 fl (35.1-43.9); Red Blood Count 5.09 M/mm3 (4.2-5.4); White Blood Count 8.7 K/mm3 (4.4-11.0)
[2021-07-02 13:19] LABS: ALB/GLOB Ratio 0.9 RATIO (0.9-2.4); AST(SGOT) 13 U/L (15-37); Alanine Aminotransfer ALT/SGPT 24 U/L (13-56); Albumin, Serum 4.1 g/dL (3.2-5.0); Alkaline Phosphatase 106 U/L (45-117); Anion Gap 10 (5-15); BUN 21 mg/dL (7-18); CRP < 2.90 mg/L (0.0-3.0); Calcium,Total 9.4 mg/dL (8.5-10.1); Chloride 105 mmol/L (98-107); Creatinine, Serum 1.05 mg/dL (0.55-1.02); EST Glomerular Filtration Rate 57 mL/min (>60); Est Glom Filt Rate - Afr Amer 68 mL/min (>60); Globulin 4.4 g/dL (2.2-4.2); Glucose 97 mg/dL (74-106); Potassium 3.4 mmol/L (3.5-5.1); Protein, Total 8.5 g/dL (6.4-8.2); Sodium Level 139 mmol/L (136-145)
[2021-07-04 18:07] LABS: QNTFERON TB Nil Value 0 IU/mL (.); QNTFERON TB1+ Ag Value 0 IU/mL (.); QNTFERON TB2+ Ag Value 0 IU/mL (.)
[2021-07-04 20:01] LABS: QNTIFERON TB Positive Criteria Negative (Negative)
== END | disposition home or self-care (01) ==
LOC: MTLAB 11:05
PROVIDERS: PCP Family Medicine; Referring Provider Internal Medicine Rheumatology; Visit Provider Internal Medicine Rheumatology
DX: M05.79 Rheumatoid arthritis with rheumatoid factor of multiple sites without organ or systems involvement (principal); L40.59 Other psoriatic arthropathy; L40.8 Other psoriasis; M70.60 Trochanteric bursitis, unspecified hip; K29.60 Other gastritis without bleeding; N20.0 Calculus of kidney; R51.9 Headache, unspecified; Z79.899 Other long term (current) drug therapy
CPT/HCPCS: 86140; 85025; 36415; 85652; 86480; 80053

== ENCOUNTER → 2021-09-15 | Outpatient (CLI) | payer MEDICAID, SELFPAY ==
[2021-09-15 12:39] LABS: Absolute Lymphocyte Count 1.06 X10^3/uL (0.83-4.51); Absolute Neutrophil Count 3.1 X10^3/uL (2.0-7.7); Basophil# 0.05 X10^3/uL; Eosinophil# 0.32 X10^3/uL; Eosinophils% 6.4 % (0-5); Hematocrit 41.2 % (37-47); Hemoglobin 13.8 g/dL (12.0-15.0); Lymphocyte # 1.06 X10^3/ul (0.83-4.51); Lymphocyte % 21.2 % (19-41); Mean Corp Hgb Conc 33.5 g/dL (32-36); Mean Corpuscular Hgb 29.9 pg (27.0-32.0); Mean Corpuscular Volume 89.4 fL (81-99); Mean Platelet Vol. 9.9 fl (6.2-12.0); NRBC Flagged by Analyzer 0 % (0-5); Neutrophil # 3.07 X10^3/uL (2.7-7.7); Neutrophil % 61.2 % (47-70); Platelet Count 259 K/mm3 (150-450); RBC Distribution Width CV 13.3 % (11.6-14.6); RBC Distribution Width SD 43.6 fl (35.1-43.9); Red Blood Count 4.61 M/mm3 (4.2-5.4)
[2021-09-15 13:00] LABS: AST(SGOT) 29 U/L (15-37); Alanine Aminotransfer ALT/SGPT 32 U/L (13-56); Albumin, Serum 3.6 g/dL (3.2-5.0); Alkaline Phosphatase 76 U/L (45-117); Anion Gap 3 (5-15); BUN 19 mg/dL (7-18); BUN/Creat Ratio 17.4 RATIO (10-20); Chloride 107 mmol/L (98-107); Creatinine, Serum 1.09 mg/dL (0.55-1.02); EST Glomerular Filtration Rate 54 mL/min (>60); Est Glom Filt Rate - Afr Amer 65 mL/min (>60); Globulin 3.7 g/dL (2.2-4.2); Glucose 85 mg/dL (74-106); Protein, Total 7.3 g/dL (6.4-8.2); Sodium Level 141 mmol/L (136-145)
== END | disposition home or self-care (01) ==
LOC: MTLAB 09:42
PROVIDERS: PCP Family Medicine; Referring Provider Internal Medicine Rheumatology; Visit Provider Internal Medicine Rheumatology
DX: M05.79 Rheumatoid arthritis with rheumatoid factor of multiple sites without organ or systems involvement (principal); L40.59 Other psoriatic arthropathy; M79.7 Fibromyalgia; L40.8 Other psoriasis; M70.60 Trochanteric bursitis, unspecified hip; K29.60 Other gastritis without bleeding; N20.0 Calculus of kidney; R51.9 Headache, unspecified; Z79.899 Other long term (current) drug therapy
CPT/HCPCS: 36415; 80053; 85025

== ENCOUNTER → 2021-11-17 | Outpatient (CLI) | payer MEDICAID, SELFPAY ==
[2021-11-17 12:20] LABS: Basophil# 0.03 X10^3/uL; Basophil% 0.6 % (0-1); Eosinophil# 0.38 X10^3/uL; Eosinophils% 7.7 % (0-5); Hematocrit 43.6 % (37-47); Hemoglobin 14.4 g/dL (12.0-15.0); Lymphocyte % 24.2 % (19-41); Mean Corpuscular Hgb 29.5 pg (27.0-32.0); Mean Corpuscular Volume 89.3 fL (81-99); Mean Platelet Vol. 10.3 fl (6.2-12.0); Monocyte# 0.36 X10^3/uL; Monocyte% 7.3 % (0-10); NRBC Flagged by Analyzer 0 % (0-5); Neutrophil # 2.96 X10^3/uL (2.7-7.7); Neutrophil % 59.8 % (47-70); Platelet Count 288 K/mm3 (150-450); RBC Distribution Width SD 39.4 fl (35.1-43.9); Red Blood Count 4.88 M/mm3 (4.2-5.4)
[2021-11-17 12:38] LABS: ALB/GLOB Ratio 0.9 RATIO (0.9-2.4); AST(SGOT) 21 U/L (15-37); Alanine Aminotransfer ALT/SGPT 22 U/L (13-56); Albumin, Serum 3.6 g/dL (3.2-5.0); Alkaline Phosphatase 80 U/L (45-117); Anion Gap 8 (5-15); BUN 22 mg/dL (7-18); BUN/Creat Ratio 18.6 RATIO (10-20); Calcium,Total 9.4 mg/dL (8.5-10.1); Chloride 106 mmol/L (98-107); Creatinine, Serum 1.18 mg/dL (0.55-1.02); EST Glomerular Filtration Rate 49 mL/min (>60); Est Glom Filt Rate - Afr Amer 60 mL/min (>60); Glucose 83 mg/dL (74-106); Potassium 3.7 mmol/L (3.5-5.1); Protein, Total 7.6 g/dL (6.4-8.2); Sodium Level 142 mmol/L (136-145)
== END | disposition home or self-care (01) ==
LOC: MTLAB 09:55
PROVIDERS: PCP Family Medicine; Referring Provider Internal Medicine Rheumatology; Visit Provider Internal Medicine Rheumatology
DX: M05.79 Rheumatoid arthritis with rheumatoid factor of multiple sites without organ or systems involvement (principal); L40.59 Other psoriatic arthropathy; Z79.899 Other long term (current) drug therapy; M79.7 Fibromyalgia; L40.8 Other psoriasis; M70.60 Trochanteric bursitis, unspecified hip; K29.60 Other gastritis without bleeding; N20.0 Calculus of kidney; R51.9 Headache, unspecified
CPT/HCPCS: 36415; 80053; 85025

== ENCOUNTER → 2022-03-17 | Outpatient (CLI) | payer MEDICARE, SELFPAY ==
[2022-03-17 14:50] LABS: Bacteria 0 SEEN /hpf (None Seen); Mucous, Urine 0 SEEN /hpf (<or=2+); Red Blood Cells-Urine 0 SEEN /hpf (0-5); Squamous Epithelial Cells - UA 0 SEEN /hpf (5-10)
[2022-03-17 18:01] LABS: Absolute Lymphocyte Count 1.55 X10^3/uL (0.83-4.51); Absolute Neutrophil Count 2.8 X10^3/uL (2.0-7.7); Basophil# 0.04 X10^3/uL; Basophil% 0.8 % (0-1); Eosinophils% 7.6 % (0-5); Hematocrit 42.4 % (37-47); Hemoglobin 13.7 g/dL (12.0-15.0); Lymphocyte # 1.55 X10^3/ul (0.83-4.51); Lymphocyte % 29.3 % (19-41); Mean Corp Hgb Conc 32.3 g/dL (32-36); Mean Corpuscular Hgb 28.5 pg (27.0-32.0); Mean Corpuscular Volume 88.3 fL (81-99); Mean Platelet Vol. 10.5 fl (6.2-12.0); Monocyte# 0.46 X10^3/uL; Monocyte% 8.7 % (0-10); NRBC Flagged by Analyzer 0 % (0-5); Neutrophil # 2.82 X10^3/uL (2.7-7.7); Neutrophil % 53.2 % (47-70); Platelet Count 279 K/mm3 (150-450); RBC Distribution Width CV 12.7 % (11.6-14.6); RBC Distribution Width SD 41.4 fl (35.1-43.9); White Blood Count 5.3 K/mm3 (4.4-11.0)
[2022-03-17 18:08] LABS: Color, Urine Yellow (Yellow); Glucose, Dipstick Normal (Normal); Ketone-Dipstick Negative (Negative); Leukocyte Esterase-Dipstick 25 /ul (Negative); Nitrite-Dipstick Negative (Negative); Occult Blood-Urine 50 /ul (Negative); Protein-Dipstick Negative (Negative); Urine Bilirubin Dipstick Negative (Negative); Urine Clarity Clear (Clear); Urine Urobilinogen Normal (Normal)
[2022-03-17 18:17] LABS: Vitamin D,25 Hydroxy 24.4 ng/mL
[2022-03-17 18:20] LABS: White Blood Cells 0-5 SEEN /hpf (0-5)
[2022-03-17 18:21] LABS: Protein, Urine (Random) 8.6 mg/dL (<11.9); Protein:Creat Ratio 84 mg/g CRE (0-200)
[2022-03-17 18:26] LABS: Cholesterol 212 mg/dL (200); High Density Lipoprotein 65 mg/dL; Phosphorus 3.7 mg/dL (2.5-4.9); Triglycerides 180 mg/dL; Very Low Density Lipoprotein 36 mg/dL (5-40)
[2022-03-18 08:07] LABS: PTHIN 33.8 pg/mL (18.4-80.1)
== END | disposition home or self-care (01) ==
PROVIDERS: PCP Family Medicine; Referring Provider Family Medicine; Visit Provider Family Medicine
DX: N18.30 Chronic kidney disease, stage 3 unspecified (principal); E78.5 Hyperlipidemia, unspecified; E55.9 Vitamin D deficiency, unspecified
CPT/HCPCS: 36415; 80061; 81001; 82306; 82570; 83970; 84100; 84156; 85025

== ENCOUNTER → 2022-07-21 | Outpatient (CLI) | payer MEDICARE, SELFPAY ==
[2022-07-21 13:11] LABS: Absolute Lymphocyte Count 1.26 X10^3/uL (0.83-4.51); Absolute Neutrophil Count 2.6 X10^3/uL (2.0-7.7); Basophil# 0.05 X10^3/uL; Eosinophil# 0.45 X10^3/uL; Eosinophils% 9.3 % (0-5); Hematocrit 45.5 % (37-47); Hemoglobin 14.7 g/dL (12.0-15.0); Lymphocyte # 1.26 X10^3/ul (0.83-4.51); Lymphocyte % 26.1 % (19-41); Mean Corp Hgb Conc 32.3 g/dL (32-36); Mean Corpuscular Hgb 28.7 pg (27.0-32.0); Mean Corpuscular Volume 88.9 fL (81-99); Mean Platelet Vol. 10.7 fl (6.2-12.0); Monocyte# 0.42 X10^3/uL; Monocyte% 8.7 % (0-10); NRBC Flagged by Analyzer 0 % (0-5); Neutrophil # 2.64 X10^3/uL (2.7-7.7); Neutrophil % 54.7 % (47-70); Platelet Count 270 K/mm3 (150-450); RBC Distribution Width CV 12.5 % (11.6-14.6); RBC Distribution Width SD 40.8 fl (35.1-43.9); Red Blood Count 5.12 M/mm3 (4.2-5.4); White Blood Count 4.8 K/mm3 (4.4-11.0)
[2022-07-21 14:08] LABS: AST(SGOT) 21 U/L (15-37); Alanine Aminotransfer ALT/SGPT 25 U/L (13-56); Alkaline Phosphatase 100 U/L (45-117); Anion Gap 7 (5-15); BUN 19 mg/dL (7-18); Calcium,Total 9.5 mg/dL (8.5-10.1); Chloride 105 mmol/L (98-107); Cholesterol 239 mg/dL (200); Creatinine, Serum 1.12 mg/dL (0.55-1.02); EST Glomerular Filtration Rate 52 mL/min (>60); Est Glom Filt Rate - Afr Amer 63 mL/min (>60); Globulin 4.1 g/dL (2.2-4.2); Glucose 81 mg/dL (74-106); High Density Lipoprotein 69 mg/dL; Phosphorus 4.1 mg/dL (2.5-4.9); Potassium 4.3 mmol/L (3.5-5.1); Protein, Total 8.1 g/dL (6.4-8.2); Sodium Level 139 mmol/L (136-145); Triglycerides 112 mg/dL; Very Low Density Lipoprotein 22 mg/dL (5-40)
[2022-07-21 14:21] LABS: PTHIN 47.1 pg/mL (18.4-80.1)
[2022-07-21 14:26] LABS: Vitamin D,25 Hydroxy 32.8 ng/mL
== END | disposition home or self-care (01) ==
LOC: MFPLAB 09:31
PROVIDERS: PCP Family Medicine; Visit Provider Family Medicine
DX: N18.30 Chronic kidney disease, stage 3 unspecified (principal); E78.5 Hyperlipidemia, unspecified
CPT/HCPCS: 36415; 80053; 80061; 82306; 83970; 84100; 85025

== ENCOUNTER → 2023-04-21 | Outpatient (CLI) | payer MEDICARE, SELFPAY ==
[2023-04-21 17:51] LABS: Absolute Lymphocyte Count 1.62 X10^3/uL (0.83-4.51); Absolute Neutrophil Count 3.4 X10^3/uL (2.0-7.7); Basophil# 0.04 X10^3/uL; Basophil% 0.7 % (0-1); Eosinophil# 0.29 X10^3/uL; Eosinophils% 5.1 % (0-5); Hematocrit 43.9 % (37-47); Hemoglobin 14.1 g/dL (12.0-15.0); Lymphocyte # 1.62 X10^3/ul (0.83-4.51); Lymphocyte % 28.7 % (19-41); Mean Corp Hgb Conc 32.1 g/dL (32-36); Mean Corpuscular Hgb 28.3 pg (27.0-32.0); Mean Platelet Vol. 10.7 fl (6.2-12.0); Monocyte# 0.32 X10^3/uL; Monocyte% 5.7 % (0-10); NRBC Flagged by Analyzer 0 % (0-5); Neutrophil # 3.36 X10^3/uL (2.7-7.7); Neutrophil % 59.6 % (47-70); Platelet Count 278 K/mm3 (150-450); RBC Distribution Width CV 12.9 % (11.6-14.6); RBC Distribution Width SD 41.5 fl (35.1-43.9); Red Blood Count 4.99 M/mm3 (4.2-5.4); White Blood Count 5.6 K/mm3 (4.4-11.0)
[2023-04-21 18:08] LABS: PTHIN 30.1 pg/mL (18.4-80.1)
[2023-04-21 18:08] LABS: Protein, Urine (Random) 9.3 mg/dL (<11.9); Protein:Creat Ratio 99 mg/g CRE (0-200)
[2023-04-21 18:12] LABS: AST(SGOT) 24 U/L (15-37); Alanine Aminotransfer ALT/SGPT 33 U/L (13-56); Albumin, Serum 4.1 g/dL (3.2-5.0); Alkaline Phosphatase 94 U/L (45-117); Anion Gap 8 (5-15); BUN 18 mg/dL (7-18); BUN/Creat Ratio 17.3 RATIO (10-20); Calcium,Total 9.5 mg/dL (8.5-10.1); Chloride 104 mmol/L (98-107); Cholesterol 244 mg/dL (200); Creatinine, Serum 1.04 mg/dL (0.55-1.02); EST Glomerular Filtration Rate 57 mL/min (>60); Est Glom Filt Rate - Afr Amer 69 mL/min (>60); Glucose 111 mg/dL (74-106); High Density Lipoprotein 72 mg/dL; Magnesium 2.3 mg/dL (1.6-2.6); Potassium 3.4 mmol/L (3.5-5.1); Protein, Total 8.1 g/dL (6.4-8.2); Sodium Level 140 mmol/L (136-145); Thyroid Stim Hormone (TSH) 2.11 uIU/mL (0.358-3.74); Triglycerides 172 mg/dL; Very Low Density Lipoprotein 34 mg/dL (5-40)
== END | disposition home or self-care (01) ==
LOC: MFPLAB 15:50
PROVIDERS: PCP Family Medicine; Visit Provider Family Medicine
DX: I12.9 Hypertensive chronic kidney disease with stage 1 through stage 4 chronic kidney disease, or unspecified chronic kidney disease (principal); N18.30 Chronic kidney disease, stage 3 unspecified; N39.0 Urinary tract infection, site not specified
CPT/HCPCS: 36415; 80053; 80061; 82306; 82570; 83735; 83970; 84100; 84156; 84443; 85025; 87077; 87086; 87088; 87186

== ENCOUNTER → 2024-03-28 | Outpatient (CLI) | payer MEDICARE, SELFPAY ==
--- NOTE | 2024-03-28 09:16 | RAD_ITS ---
PROCEDURE: KNEE 4 OR MORE VIEWS REASON FOR EXAM: Left knee pain. History of rheumatoid arthritis. TECHNIQUE: Four view left knee series COMPARISON: None. RAD/Knee 4 or More Views IMPRESSION: No left knee joint effusion is seen. Satisfactory osseous alignment is noted throughout. Minimal degenerative changes are seen, but no joint narrowing is noted. No erosive process is seen. No fracture or dislocation is evident. Reading Location: [id number]
== END | disposition home or self-care (01) ==
LOC: MTRAD 09:12
PROVIDERS: PCP Family Medicine; Referring Provider Family Medicine; Visit Provider Family Medicine
DX: M25.562 Pain in left knee (principal)
CPT/HCPCS: 73564

== ENCOUNTER → 2024-08-10 | Outpatient (CLI) | payer MEDICARE, SELFPAY ==
[2024-08-10 09:16] LABS: Bacteria 0 SEEN /hpf (None Seen); Red Blood Cells-Urine 0 SEEN /hpf (0-5)
[2024-08-10 10:16] LABS: Color, Urine Yellow (Yellow); Glucose, Dipstick Normal (Normal); Ketone-Dipstick Negative (Negative); Leukocyte Esterase-Dipstick 500 /ul (Negative); Nitrite-Dipstick Negative (Negative); Occult Blood-Urine 50 /ul (Negative); Protein-Dipstick 15 mg/dl (Negative); Urine Bilirubin Dipstick Negative (Negative); Urine Clarity Clear (Clear); Urine Urobilinogen Normal (Normal)
[2024-08-10 10:36] LABS: Squamous Epithelial Cells - UA 0-5 SEEN /hpf (5-10)
[2024-08-10 10:37] LABS: Calcium Oxalate Crystals Ur 1+ /hpf (<or=2+); Mucous, Urine 1+ /hpf (<or=2+); White Blood Cells 0-5 SEEN /hpf (0-5)
[2024-08-10 10:40] LABS: Protein, Urine (Random) 11.9 mg/dL (0.0-12.0); Protein:Creat Ratio 54 mg/g CRE (0-200)
[2024-08-10 12:46] LABS: Absolute Lymphocyte Count 1.41 X10^3/uL (0.83-4.51); Basophil# 0.04 X10^3/uL; Basophil% 0.8 % (0-1); Eosinophil# 0.23 X10^3/uL; Eosinophils% 4.5 % (0-5); Hematocrit 43.5 % (37-47); Hemoglobin 14.5 g/dL (12.0-15.0); Lymphocyte # 1.41 X10^3/ul (0.83-4.51); Lymphocyte % 27.4 % (19-41); Mean Corp Hgb Conc 33.3 g/dL (32-36); Mean Corpuscular Hgb 29.4 pg (27.0-32.0); Mean Corpuscular Volume 88.2 fL (81-99); Mean Platelet Vol. 11.1 fl (6.2-12.0); Monocyte# 0.49 X10^3/uL; Monocyte% 9.5 % (0-10); NRBC Flagged by Analyzer 0 % (0-5); Neutrophil # 2.95 X10^3/uL (2.7-7.7); Neutrophil % 57.4 % (47-70); Platelet Count 238 K/mm3 (150-450); RBC Distribution Width CV 12.3 % (11.6-14.6); Red Blood Count 4.93 M/mm3 (4.2-5.4); White Blood Count 5.1 K/mm3 (4.4-11.0)
[2024-08-10 12:55] LABS: PTHIN 38 pg/mL (11-61)
[2024-08-10 13:34] LABS: ALB/GLOB Ratio 1.3 RATIO (0.9-2.4); AST(SGOT) 23 U/L (<=31); Alanine Aminotransfer ALT/SGPT 17 U/L (<=34); Albumin, Serum 4.4 g/dL (3.4-4.8); Alkaline Phosphatase 98 U/L (35-104); Anion Gap 11 (5-15); BUN 19 mg/dL (4-19); BUN/Creat Ratio 17.1 RATIO (10-20); Calcium,Total 9.7 mg/dL (7.6-11.0); Carbon Dioxide 24.7 mmol/L (21.0-32.0); Chloride 104 mmol/L (98-108); Cholesterol 239 mg/dL (<=200); Creatinine, Serum 1.12 mg/dL (0.70-1.20); EST Glomerular Filtration Rate 55 (>60); Globulin 3.3 g/dL (2.2-4.2); Glucose 91 mg/dL (70-99); High Density Lipoprotein 71 mg/dL; Low Density Lipoprotein Calc. 140 mg/dL; Magnesium 2.4 mg/dL (1.5-2.2); Potassium 4.6 mmol/L (3.3-5.1); Protein, Total 7.7 g/dL (5.9-8.4); Sodium Level 140 mmol/L (133-145); Total Bilirubin 0.43 mg/dL (0.00-1.30); Triglycerides 140 mg/dL; Very Low Density Lipoprotein 28 mg/dL (5-40); Vitamin D,25 Hydroxy 25.5 ng/mL (30-100); cholesterol:hdl ratio screen 3.37
--- OUTSIDE RECORDS SUMMARY | 2024-08-10 13:38 | XMS RPT_ITS | CCD ---
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 hx of RA and psoriatic arthritis no inj CLINICAL INFORMATION: 63 years old Female with Pain TECHNIQUE: XR HIP 3V PELV+ AP/LAT LT Laterality: LEFT Number of different views (projections): 3 COMPARISON: RESULT: No fracture. LEFT hip joint space is maintained with collar osteophytes. RIGHT hip joint space is maintained. Sacroiliac joints and pubic symphysis are maintained. DIVISION OF RADIOLOGY Provider, [facility] - 12/23/2023 * * *Final Report* * * DATE OF EXAM: Dec 23 2023 10:40AM WOX 5351 - XR HIP 3V PELV+ AP/LAT LT / PROCEDURE REASON: Pain * * * * Physician Interpretation * * * * EXAMINATION: XR HIP 3V PELV+ AP/LAT LT PATIENT/TECHNOLOGIST PROVIDED HISTORY: pain started a few weeks ago with pain in left groin and all across lower lumbar, hx of RA and psoriatic arthritis no inj CLINICAL INFORMATION: 63 years old Female with Pain TECHNIQUE: XR HIP 3V PELV+ AP/LAT LT Laterality: LEFT Number of different views (projections): 3 COMPARISON: RESULT: No fracture. LEFT hip joint space is maintained with collar osteophytes. RIGHT hip joint space is maintained. Sacroiliac joints and pubic symphysis are maintained. IMPRESSION IMPRESSION: No acute osseous abnormality. Mild degenerative change LEFT hip. [employer] Equipment Operator: PSCB Transcribe Date/Time: Dec 23 2023 10:51A Dictated by : LAUREN KUMAR DO This examination was interpreted and the report reviewed and electronically signed by: LAUREN KUMAR DO on Dec 23 2023 10:54AM EST [facility] Urine Cultureon 04-25-2023 [facility] Order Date: 04/21/23 Order Info: 630-4 - CUUR 04/21/23 630-4 - CUUR Streptococcus sanguinis Anabel Count 11,000-25,000 Streptococcus sanguinis: REACTION Ampicillin Islt ROBERT <=0.25 S Penicillin G Islt ROBERT 0.12 S Cefotaxime Islt ROBERT 0.5 S cefTRIAXone Islt ROBERT 0.25 S Normal [facility] Comment on above: Performed By: #### L 100.0100, L500.4050, M100.2200 #### [facility] [address] [place], [address] Absolute lymphocyte countOrd ered By: Foreign Tsai on 04-21-2023 Lymphocytes Auto (Unsp spec) [#/Vol] 1.62 10*3/uL 0.83-4.51 [facility] Automated lymphocyte count a s percentage of total leukocytesOrdered By: Foreign Tsai on 04-21-2023 Lymphocytes/100 WBC Auto (Unsp spec) 28.7 % 19-41 [facility] Basophil percentageOrdered B y: Foreign Tsai on 04-21-2023 Basophil percentage 4.0 mg/dL 2.5-4.9 [facility] Basophils/100 WBC (Bld) 0.7 % 0-1 [facility] Bilirubin [Mass/Vol] 0.60 mg/dL 0.20-1.00 [facility] Comment on above: For patients on eltr ombopag therapy, use of Dimension Emerado TBIL is not recommended. Chloride [Moles/Vol] 104 mmol/L 98-107 [facility] Cholesterol [Mass/Vol] 244 mg/dL <200 [facility] Comment on above: <200 mg/dL Desirable 200-240 mg/dL Borderline >240 mg/dL High Risk Eosinophils/100 WBC (Bld) 5.1 % 0-5 [facility] Glucose [Mass/Vol] 111 mg/dL 74-106 [facility] Comment on above: Fasting Glucose resu lt from 100 to 125 mg/dL suggests IMPAIRED HOMEOSTASIS per A.D.A. criteria. Hemoglobin (Bld) [Mass/Vol] 14.1 g/dL 12.0-15.0 [facility] Monocytes/100 WBC (Bld) 5.7 % 0-10 [facility] Neutrophils (Bld) [#/Vol] 3.4 10*3/uL 2.0-7.7 [facility] Neutrophils/100 WBC (Bld) 59.6 % 47-70 [facility] Potassium [Moles/Vol] 3.4 mmol/L 3.5-5.1 [facility] Protein [Mass/Vol] 8.1 g/dL 6.4-8.2 [facility] Sodium [Moles/Vol] 140 mmol/L 136-145 [facility] Triglyceride [Mass/Vol] 172 mg/dL <199 [facility] Comment on above: The drugs N-Acetylcy steine and Metamizole may falsely depress this assay.Serum Triglycerides Reference Interval Normal <150 mg/dL Borderline high 150 - 199 mg/dL High 200 - 499 mg/dL Very High > or = 500 mg/dL WBC (Bld) [#/Vol] 5.6 10*3/uL 4.4-11.0 [facility] CBC W/Diff, Automatedon 03-0 Absolute Lymph 1.62 X10 3/uL Normal 0.83-4.51 [facility] Comment on above: Order Comment: Order Date: 04/21/23 Order Info: 0184-1 - CBCD Performed By: #### L 100.0100, L500.4050, M100.2200 #### [facility] [address] [place], [address] Absolute Neut 3.4 X10 3/uL Normal 2.0-7.7 [facility] Comment on above: Order Comment: Order Date: 04/21/23 Order Info: 0184-1 - CBCD Performed By: #### L 100.0100, L500.4050, M100.2200 #### [facility] [address] [place], [address] Basophils/100 WBC (Bld) 0.7 % Normal 0-1 [facility] Comment on above: Order Comment: Order Date: 04/21/23 Order Info: 0184-1 - CBCD Performed By: #### L 100.0100, L500.4050, M100.2200 #### [facility] [address] [place], [address] Eosinophils/100 WBC (Bld) 5.1 % High 0-5 [facility] Comment on above: Order Comment: Order Date: 04/21/23 Order Info: 0184-1 - CBCD Performed By: #### L 100.0100, L500.4050, M100.2200 #### [facility] [address] [place], [address] Erythrocyte distribution width (RBC) [Ratio] 12.9 % Normal 11.6-14.6 [facility] Comment on above: Order Comment: Order Date: 04/21/23 Order Info: 0184-1 - CBCD Performed By: #### L 100.0100, L500.4050, M100.2200 #### [facility] [address] [place], [address] Hematocrit (Bld) [Volume fraction] 43.9 % Normal 37-47 [facility] Comment on above: Order Comment: Order Date: 04/21/23 Order Info: 0184-1 - CBCD Performed By: #### L 100.0100, L500.4050, M100.2200 #### [facility] [address] [place], [address] Hemoglobin (Bld) [Mass/Vol] 14.1 g/dL Normal 12.0-15.0 [facility] Comment on above: Order Comment: Order Date: 04/21/23 Order Info: 0184-1 - CBCD Performed By: #### L 100.0100, L500.4050, M100.2200 #### [facility] [address] [place], [address] IG% 0.200 Normal 0.0-0.9 [facility] Comment on above: Order Comment: Order Date: 04/21/23 Order Info: 0184- - CBCD Result Comment: IG% - Immature Granulocytes (promyelocytes, myelocytes and metamyelocytes) > 1% indicates that a LEFT SHIFT is Present. Performed By: #### L 100.0100, L500.4050, M100.2200 #### [facility] [address] [place], [address] Lymphocytes/100 WBC (Bld) 28.7 % Normal 19-41 [facility] Comment on above: Order Comment: Order Date: 04/21/23 Order Info: 0184-1 - CBCD Performed By: #### L 100.0100, L500.4050, M100.2200 #### [facility] [address] [place], [address] MCH (RBC) [Entitic mass] 28.3 pg Normal 27.0-32.0 [facility] Comment on above: Order Comment: Order Date: 04/21/23 Order Info: 0184-1 - CBCD Performed By: #### L 100.0100, L500.4050, M100.2200 #### [facility] [address] [place], [address] MCHC (RBC) [Mass/Vol] 32.1 g/dL Normal 32-36 [facility] Comment on above: Order Comment: Order Date: 04/21/23 Order Info: 0184-1 - CBCD Performed By: #### L 100.0100, L500.4050, M100.2200 #### [facility] [address] [place], [address] MCV (RBC) [Entitic vol] 88.0 fL Normal 81-99 [facility] Comment on above: Order Comment: Order Date: 04/21/23 Order Info: 0184-1 - CBCD Performed By: #### L 100.0100, L500.4050, M100.2200 #### [facility] [address] [place], [address] Monocytes/100 WBC (Bld) 5.7 % Normal 0-10 [facility] Comment on above: Order Comment: Order Date: 04/21/23 Order Info: 0184-1 - CBCD Performed By: #### L 100.0100, L500.4050, M100.2200 #### [facility] [address] [place], [address] Neutrophils/100 WBC (Bld) 59.6 % Normal 47-70 [facility] Comment on above: Order Comment: Order Date: 04/21/23 Order Info: 0184-1 - CBCD Performed By: #### L 100.0100, L500.4050, M100.2200 #### [facility] [address] [place], [address] Nucleated RBC (Bld) [#/Vol] 0 10*3/uL Normal 0-5 [facility] Comment on above: Order Comment: Order Date: 04/21/23 Order Info: 0184-1 - CBCD Performed By: #### L 100.0100, L500.4050, M100.2200 #### [facility] [address] [place], [address] Platelet mean volume (Bld) [Entitic vol] 10.7 fL Normal 6.2-12.0 [facility] Comment on above: Order Comment: Order Date: 04/21/23 Order Info: 0184-1 - CBCD Performed By: #### L 100.0100, L500.4050, M100.2200 #### [facility] [address] [place], [address] Platelets (Bld) [#/Vol] 278 10*3/uL Normal 150-450 [facility] Comment on above: Order Comment: Order Date: 04/21/23 Order Info: 0184-1 - CBCD Performed By: #### L 100.0100, L500.4050, M100.2200 #### [facility] [address] [place], [address] RBC (Bld) [#/Vol] 4.99 10*6/uL Normal 4.2-5.4 [facility] Comment on above: Order Comment: Order Date: 04/21/23 Order Info: 018-1 - CBCD Performed By: #### L 100.0100, L500.4050, M100.2200 #### [facility] [address] [place], [address] RDW SD 41.5 fl Normal 35.1-43.9 [facility] Comment on above: Order Comment: Order Date: 04/21/23 Order Info: 0184-1 - CBCD Performed By: #### L 100.0100, L500.4050, M100.2200 #### [facility] [address] [place], [address] WBC (Bld) [#/Vol] 5.6 10*3/uL Normal 4.4-11.0 [facility] Comment on above: Order Comment: Order Date: 04/21/23 Order Info: 0184-1 - CBCD Performed By: #### L 100.0100, L500.4050, M100.2200 #### [facility] [address] [place], [address] Comprehensive Metabolic Prof ilon 04-21-2023 Albumin [Mass/Vol] 4.1 g/dL Normal 3.2-5.0 [facility] Comment on above: Order Comment: Order Date: 04/21/23 Order Info: 0786-1 - CMP Order Info: [id number] - LIPID Order Info: 2777-1 - PHOS Order Info: [id number] - MG Order Info: 3016-3 - TSH Performed By: #### L 100.0100, L500.4050, M100.2200 #### [facility] [address] [place], [address] Albumin/Globulin [Mass ratio] 1.0 {ratio} Normal 0.9-2.4 [facility] Comment on above: Order Comment: Order Date: 04/21/23 Order Info: 0786-1 - CMP Order Info: [id number] - LIPID Order Info: 2777-1 - PHOS Order Info: [id number] - MG Order Info: 3016-3 - TSH Performed By: #### L 100.0100, L500.4050, M100.2200 #### [facility] [address] [place], [address] ALK P 94 U/L Normal 45-117 [facility] Comment on above: Order Comment: Order Date: 04/21/23 Order Info: 0786-1 - CMP Order Info: [id number] - LIPID Order Info: 2777-1 - PHOS Order Info: [id number] - MG Order Info: 3016-3 - TSH Performed By: #### L 100.0100, L500.4050, M100.2200 #### [facility] [address] [place], [address] ALT [Catalytic activity/Vol] 33 U/L Normal 13-56 [facility] Comment on above: Order Comment: Order Date: 04/21/23 Order Info: 0786-1 - CMP Order Info: [id number] - LIPID Order Info: 2777-1 - PHOS Order Info: [id number] - MG Order Info: 3016-3 - TSH Performed By: #### L 100.0100, L500.4050, M100.2200 #### [facility] [address] [place], [address] AST [Catalytic activity/Vol] 24 U/L Normal 15-37 [facility] Comment on above: Order Comment: Order Date: 04/21/23 Order Info: 0786-1 - CMP Order Info: [id number] - LIPID Order Info: 2777-1 - PHOS Order Info: [id number] - MG Order Info: 3016-3 - TSH Performed By: #### L 100.0100, L500.4050, M100.2200 #### [facility] [address] [place], [address] Bilirubin [Mass/Vol] 0.60 mg/dL Normal 0.20-1.00 [facility] Comment on above: Order Comment: Order Date: 04/21/23 Order Info: 86-1 - CMP Order Info: [id number] - LIPID Order Info: 2777-1 - PHOS Order Info: [id number] - MG Order Info: 3015-3 - TSH Result Comment: For patients on eltrombopag therapy, use of Dimension Emerado TBIL is not recommended. Performed By: #### L 100.0100, L500.4050, M100.2200 #### [facility] [address] [place], [address] BUN/CRE 17.3 RATIO Normal 10-20 [facility] Comment on above: Order Comment: Order Date: 04/21/23 Order Info: 0786-1 - CMP Order Info: [id number] - LIPID Order Info: 2777-1 - PHOS Order Info: [id number] - MG Order Info: 3016-3 - TSH Performed By: #### L 100.0100, L500.4050, M100.2200 #### [facility] [address] [place], [address] CA,Total 9.5 mg/dL Normal 8.5-10.1 [facility] Comment on above: Order Comment: Order Date: 04/21/23 Order Info: 86-1 - CMP Order Info: [id number] - LIPID Order Info: 2777-1 - PHOS Order Info: [id number] - MG Order Info: 3016-3 - TSH Performed By: #### L 100.0100, L500.4050, M100.2200 #### [facility] [address] [place], [address] Chloride [Moles/Vol] 104 mmol/L Normal 98-107 [facility] Comment on above: Order Comment: Order Date: 04/21/23 Order Info: 86-1 - CMP Order Info: [id number] - LIPID Order Info: 7-1 - PHOS Order Info: [id number] - MG Order Info: 301-3 - TSH Performed By: #### L 100.0100, L500.4050, M100.2200 #### [facility] [address] [place], [address] CO2 [Moles/Vol] 28.0 mmol/L Normal 21.0-32.0 [facility] Comment on above: Order Comment: Order Date: 04/21/23 Order Info: 86-1 - CMP Order Info: [id number] - LIPID Order Info: 2777-1 - PHOS Order Info: [id number] - MG Order Info: 3016-3 - TSH Performed By: #### L 100.0100, L500.4050, M100.2200 #### [facility] [address] [place], [address] Creatinine [Mass/Vol] 1.04 mg/dL High 0.55-1.02 [facility] Comment on above: Order Comment: Order Date: 04/21/23 Order Info: 86-1 - CMP Order Info: [id number] - LIPID Order Info: 2777-1 - PHOS Order Info: [id number] - MG Order Info: 3016-3 - TSH Result Comment: The validity of the calculated GFR GFRAA in patients over 70 years has not been determined. Clinical correlation is essential. Performed By: #### L 100.0100, L500.4050, M100.2200 #### [facility] [address] [place], [address] EST GFR - AA 69 mL/min Normal >60 [facility] Comment on above: Order Comment: Order Date: 04/21/23 Order Info: 0786-1 - CMP Order Info: [id number] - LIPID Order Info: 2777-1 - PHOS Order Info: [id number] - MG Order Info: 301-3 - TSH Result Comment: Afri can Guyanese GFR Calc Performed By: #### L 100.0100, L500.4050, M100.2200 #### [facility] [address] [place], [address] GAP 8 Normal 5-15 [facility] Comment on above: Order Comment: Order Date: 04/21/23 Order Info: 0786-1 - CMP Order Info: [id number] - LIPID Order Info: 2777-1 - PHOS Order Info: [id number] - MG Order Info: 3015-3 - TSH Performed By: #### L 100.0100, L500.4050, M10 #### [facility] [address] [place], [address] GFR/1.73 sq M.predicted among non-blacks MDRD (S/P/Bld) [Vol rate/Area] 57 mL/min/{1.73_m2} Low >60 [facility] Comment on above: Order Comment: Order Date: 04/21/23 Order Info: 0786-1 - CMP Order Info: [id number] - LIPID Order Info: 2777-1 - PHOS Order Info: [id number] - MG Order Info: 3016-3 - TSH Result Comment: Non- GFR Calc Performed By: #### L 100.0100, L500.4050, M100.2200 #### [facility] [address] [place], [address] Globulin (S) [Mass/Vol] 4.0 g/dL Normal 2.2-4.2 [facility] Comment on above: Order Comment: Order Date: 04/21/23 Order Info: 0786-1 - CMP Order Info: [id number] - LIPID Order Info: 2777-1 - PHOS Order Info: [id number] - MG Order Info: 301-3 - TSH Performed By: #### L 100.0100, L500.4050, M100.2200 #### [facility] [address] [place], [address] Glucose [Mass/Vol] 111 mg/dL High 74-106 [facility] Comment on above: Order Comment: Order Date: 04/21/23 Order Info: 0786-1 - CMP Order Info: [id number] - LIPID Order Info: 7-1 - PHOS Order Info: [id number] - MG Order Info: 3015-3 - TSH Result Comment: Fast ing Glucose result from 100 to 125 mg/dL suggests IMPAIRED HOMEOSTASIS per A.D.A. criteria. Performed By: #### L 100.0100, L500.4050, M100.2200 #### [facility] [address] [place], [address] Potassium [Moles/Vol] 3.4 mmol/L Low 3.5-5.1 [facility] Comment on above: Order Comment: Order Date: 04/21/23 Order Info: 0786-1 - CMP Order Info: [id number] - LIPID Order Info: 2777-1 - PHOS Order Info: [id number] - MG Order Info: 3016-3 - TSH Performed By: #### L 100.0100, L500.4050, M100.2200 #### [facility] [address] [place], [address] Sodium [Moles/Vol] 140 mmol/L Normal 136-145 [facility] Comment on above: Order Comment: Order Date: 04/21/23 Order Info: 0786-1 - CMP Order Info: [id number] - LIPID Order Info: 2777-1 - PHOS Order Info: [id number] - MG Order Info: 3015-3 - TSH Performed By: #### L 100.0100, L500.4050, M100.2200 #### [facility] [address] [place], [address] T PROT 8.1 g/dL Normal 6.4-8.2 [facility] Comment on above: Order Comment: Order Date: 04/21/23 Order Info: 86-1 - CMP Order Info: [id number] - LIPID Order Info: [id number] - PHOS Order Info: [id number] - MG Order Info: 3 - TSH Performed By: #### L 100.0100, L500.4050, M100.2200 #### [facility] [address] [place], [address] Urea nitrogen [Mass/Vol] 18 mg/dL Normal 7-18 [facility] Comment on above: Order Comment: Order Date: 04/21/23 Order Info: 0786-1 - CMP Order Info: [id number] - LIPID Order Info: 2777-1 - PHOS Order Info: [id number] - MG Order Info: 3015-3 - TSH Performed By: #### L 100.0100, L500.4050, M100.2200 #### [facility] [address] [place], [address] Culture, urineOrdered By: Torri Tsai on 04-21-2023 Bacteria identified Cx Nom (U) Streptococcus sanguinis [facility] Determination of erythrocyte mean corpuscular volume (MCV)Ordered By: Foreign Tsai on 04-21-2023 MCV (RBC) [Entitic vol] 88.0 fL 81-99 [facility] Erythrocyte distribution wid th ratioOrdered By: Foreign Tsai on 04-21-2023 Erythrocyte distribution width (RBC) [Ratio] 12.9 % 11.6-14.6 [facility] Erythrocyte distribution wid th standard deviationOrdered By: Foreign Tsai on 04-21-2023 Erythrocyte distribution width (RBC) [Entitic vol] 41.5 fL 35.1-43.9 [facility] Hematocrit Auto (Bld) [Volum e fraction]Ordered By: Foreign Tsai on 04-21-2023 Hematocrit (Bld) [Volume fraction] 43.9 % 37-47 [facility] Immature granulocytes/100 WB C Auto (Bld)Ordered By: Foreign Tsai on 04-21-2023 Immature granulocytes/100 WBC (Bld) 0.200 % 0.0-0.9 [facility] Comment on above: IG% - Immature Granu locytes (promyelocytes, myelocytes and metamyelocytes) > 1% indicates that a LEFT SHIFT is Present. Laboratory - Chemistry and C hemistry - challengeOrdered By: Foreign Tsai on 04-21-2023 Albumin/Globulin [Mass ratio] 1.0 {ratio} 0.9-2.4 [facility] ALP [Catalytic activity/Vol] 94 U/L 45-117 [facility] ALT [Catalytic activity/Vol] 33 U/L 13-56 [facility] Cholesterol in HDL [Mass/Vol] 72 mg/dL >40 [facility] Comment on above: The drugs N-Acetylcy steine and Metamizole may falsely depress this assay. Reference Range HDL <40 mg/dL Low HDL Cholesterol HDL >or= 60 mg/dL High HDL Cholesterol Cholesterol in LDL [Mass/Vol] 138 mg/dL 0-130 [facility] CO2 [Moles/Vol] 28.0 mmol/L 21.0-32.0 [facility] Globulin (S) [Mass/Vol] 4.0 g/dL 2.2-4.2 [facility] Magnesium [Mass/Vol] 2.3 mg/dL 1.6-2.6 [facility] Urea nitrogen/Creatinine [Mass ratio] 17.3 mg/mg 10-20 [facility] - Hematology and Cell countsOrdered By: Foreign Tsai on 04-21-2023 MCH (RBC) [Entitic mass] 28.3 pg 27.0-32.0 [facility] MCHC (RBC) [Mass/Vol] 32.1 g/dL 32-36 [facility] Nucleated RBC/100 WBC (Bld) [Ratio] 0 % 0-5 [facility] Platelet mean volume (Bld) [Entitic vol] 10.7 fL 6.2-12.0 [facility] Platelets (Bld) [#/Vol] 278 10*3/uL 150-450 [facility] Lipid Profileon 04-21-2023 Cholesterol [Mass/Vol] 244 mg/dL High 200 [facility] Comment on above: Order Comment: Order Date: 04/21/23 Order Info: 07- - CMP Order Info: [id number] - LIPID Order Info: [id number] - PHOS Order Info: [id number] - MG Order Info: 3016-3 - TSH Result Comment: <200 mg/dL Desirable 200-240 mg/dL Borderline >240 mg/dL High Risk Performed By: #### L 501.9520, L501.5200, L506.1000, L509.1000, L501.2300, L500.4100 #### [facility] [address] [place], [address] Cholesterol in HDL [Mass/Vol] 72 mg/dL Normal [facility] Comment on above: Order Comment: Order Date: 04/21/23 Order Info: [id number] - CMP Order Info: - LIPID Order Info: [id number] - PHOS Order Info: [id number] - MG Order Info: 3016-3 - TSH Result Comment: The drugs N-Acetylcysteine and Metamizole may falsely depress this assay. Reference Range HDL <40 mg/dL Low HDL Cholesterol HDL >or= 60 mg/dL High HDL Cholesterol Performed By: #### L 501.9520, L501.5200, L506.1000, L509.1000, L501.2300, L500.4100 #### [facility] [address] [place], [address] Cholesterol in LDL [Mass/Vol] 138 mg/dL High 0-130 [facility] Comment on above: Order Comment: Order Date: 04/21/23 Order Info: 0786- - CMP Order Info: [id number] - LIPID Order Info: [id number] - PHOS Order Info: [id number] - MG Order Info: 3016-3 - TSH Performed By: #### L 501.9520, L501.5200, L506.1000, L509.1000, L501.2300, L500.4100 #### [facility] [address] [place], [address] Cholesterol in VLDL [Mass/Vol] 34 mg/dL Normal 5-40 [facility] Comment on above: Order Comment: Order Date: 04/21/23 Order Info: 0786-1 - CMP Order Info: [id number] - LIPID Order Info: [id number] - PHOS Order Info: [id number] - MG Order Info: 3016-3 - TSH Performed By: #### L 501.9520, L501.5200, L506.1000, L509.1000, L501.2300, L500.4100 #### [facility] [address] [place], [place], [id number] [phone] Triglyceride [Mass/Vol] 172 mg/dL Normal [facility] Comment on above: Order Comment: Order Date: 04/21/23 Order Info: 0786- - CMP Order Info: [id number] - LIPID Order Info: [id number] - PHOS Order Info: [id number] - MG Order Info: [id number] - TSH Result Comment: The drugs N-Acetylcysteine and Metamizole may falsely depress this assay. Serum Triglycerides Reference Interval Normal <150 mg/dL Borderline high 150 - 199 mg/dL High 200 - 499 mg/dL Very High > or = 500 mg/dL Performed By: #### L 501.9520, L501.5200, L506.1000, L509.1000, L501.2300, L500.4100 #### [facility] [address] [place], [address] Magnesiumon 04-21-2023 Magnesium [Mass/Vol] 2.3 mg/dL Normal 1.6-2.6 [facility] Comment on above: Order Comment: Order Date: 04/21/23 Order Info: 0786-1 - CMP Order Info: [id number] - LIPID Order Info: [id number] - PHOS Order Info: [id number] - MG Order Info: 3016-3 - TSH Performed By: #### L 501.9520, L501.5200, L506.1000, L509.1000, L501.2300, L500.4100 #### [facility] [address] [place], [place], [address] No Panel InformationOrdered By: Foreign Tsai on 04-21-2023 Estimated GFR (MDRD) Amer 69 mL/min >60 [facility] Comment on above: GFR Calc Estimated GFR (MDRD) Non-Af Amer 57 mL/min >60 [facility] Comment on above: Non- GFR Calc Parathyroid Hormone (Intact) 30.1 pg/mL 18.4-80.1 [facility] Vitamin D 25-Hydroxy 22.0 ng/mL [facility] Comment on above: Vitamin D 25(OH) Sta tus Range Deficiency <20 ng/mL (50nmol/L) Insufficiency 20 - 30 ng/mL (50 - 75 nmol/L) Sufficiency 30 - 100 ng/mL (75 - 250 nmol/L) Toxicity >100 ng/mL (>250 nmol/L) VLDL Cholesterol 34 mg/dL 5-40 [facility] PTHINon 04-21-2023 PTH 30.1 pg/mL Normal 18.4-80.1 [facility] Comment on above: Order Comment: Order Date: 04/21/23 Order Info: [id number] - PTHIN Performed By: #### L 501.9520, L501.5200, L506.1000, L509.1000, L501.2300, L500.4100 #### [facility] [address] [place], [place], [address] Phosphoruson 04-21-2023 Phosphate [Mass/Vol] 4.0 mg/dL Normal 2.5-4.9 [facility] Comment on above: Order Comment: Order Date: 04/21/23 Order Info: [id number] - CMP Order Info: [id number] - LIPID Order Info: [id number] - PHOS Order Info: [id number] - MG Order Info: [id number] - TSH Performed By: #### L [id number], L501.5200, L506.1000, L509.1000, L501.2300, L500.4100 #### [facility] [address] [place], [address] Protein+Creatinine Ratio,Uri neon 04-21-2023 PROT:CRE RATIO 99 mg/g CRE Normal 0-200 [facility] Comment on above: Performed By: #### L 501.0900 #### [facility] [address] [place], [address] Protein (U) [Mass/Vol] 9.3 mg/dL Normal <11.9 [facility] Comment on above: Performed By: #### L 501.0900 #### [facility] [address] [place], [address] UR CREAT 93.90 mg/dL Normal NO RANGE EST. [facility] Comment on above: Performed By: #### L [id number] #### [facility] [address] [place], [address] RBC Auto (Bld) [#/Vol]Ordere d By: Foreign Tsai on 04-21-2023 RBC (Bld) [#/Vol] 4.99 10*6/uL 4.2-5.4 [facility] Serum or plasma calcium oksana urement (mass/volume)Ordered By: Foreign Tsai on 04-21-2023 Calcium [Mass/Vol] 9.5 mg/dL 8.5-10.1 [facility] Serum or plasma creatinine m easurement (mass/volume)Ordered By: Foreign Tsai on 04-21-2023 Creatinine [Mass/Vol] 1.04 mg/dL 0.55-1.02 [facility] Comment on above: The validity of the calculated GFR & GFRAA in patients over 70 years has not been determined. Clinical correlation is essential. Serum or plasma thyroid stim ulating hormone (TSH) measurement (units/volume)Ordered By: Foreign Tsai on 04-21-2023 TSH Qn 2.11 uIU/mL 0.358-3.74 [facility] Serum or plasma urea nitroge n measurement (mass/volume)Ordered By: Foreign Tsai on 04-21-2023 Urea nitrogen [Mass/Vol] 18 mg/dL 7-18 [facility] Thin prep Papanicolaou smear with manual screeningOrdered By: Foreign Tsai on 04-21-2023 Protein (U) [Mass/Vol] 9.3 mg/dL 0.0-11.8 [facility] Thin prep Papanicolaou smear with manual screening 4.1 g/dL 3.2-5.0 [facility] Thin prep Papanicolaou smear with manual screening 24 U/L 15-37 [facility] Thin prep Papanicolaou smear with manual screening 8 5-15 [facility] Thyroid Stim Hormone (TSH)on 04-21-2023 TSH 2.11 uIU/mL Normal 0.358-3.74 [facility] Comment on above: Order Comment: Order Date: 04/21/23 Order Info: [id number] - CMP Order Info: [id number] - LIPID Order Info: [id number] - PHOS Order Info: [id number] - MG Order Info: [id number] - TSH Performed By: #### L [id number], [id number], L506.1000, L509.1000, L501.2300, L500.4100 #### [facility] [address] [place] [address]. [place], [address] Urine creatinine measurement (mass/volume)Ordered By: Foreign Tsai on 04-21-2023 Creatinine (U) [Mass/Vol] 93.90 mg/dL NO RANGE EST. [facility] Urine protein/creatinine mas s ratioOrdered By: Foreign Tsai on 04-21-2023 Protein/Creatinine (U) [Mass ratio] 99 mg/g CRE 0-200 [facility] Vitamin D,25 Hydroxyon 04-20 Vitamin D 25-OH 22.0 ng/mL Normal [facility] Comment on above: Order Comment: Order Date: 04/21/23 Order Info: [id number] - VITD25 Result Comment: Lisa min D 25(OH) Status Range Deficiency <20 ng/mL (50nmol/L) Insufficiency 20 - 30 ng/mL (50 - 75 nmol/L) Sufficiency 30 - 100 ng/mL (75 - 250 nmol/L) Toxicity >100 ng/mL (>250 nmol/L) Performed By: #### L [id number], [id number], L506.1000, L509.1000, L501.2300, L500.4100 #### [facility] [address] [place], [place], [id number] Absolute lymphocyte countOrd ered By: Dr. Tsai on 03-17-2022 Lymphocytes Auto (Unsp spec) [#/Vol] 1.55 10*3/uL 0.83-4.51 [facility] Basophil percentageOrdered B y: Dr. Tsai on 03-17-2022 Basophil percentage 0-5 SEEN /hpf 0-5 [facility] Basophil percentage 3.7 mg/dL 2.5-4.9 [facility] Basophils/100 WBC (Bld) 0.8 % 0-1 [facility] Cholesterol [Mass/Vol] 212 mg/dL <200 [facility] Comment on above: <200 mg/dL Desirable 200-240 mg/dL Borderline >240 mg/dL High Risk Eosinophils/100 WBC (Bld) 7.6 % 0-5 [facility] Neutrophils (Bld) [#/Vol] 2.8 10*3/uL 2.0-7.7 [facility] Neutrophils/100 WBC (Bld) 53.2 % 47-70 [facility] Triglyceride [Mass/Vol] 180 mg/dL <199 [facility] Comment on above: The drugs N-Acetylcy steine and Metamizole may falsely depress this assay.Serum Triglycerides Reference Interval Normal <150 mg/dL Borderline high 150 - 199 mg/dL High 200 - 499 mg/dL Very High > or = 500 mg/dL WBC (Bld) [#/Vol] 5.3 10*3/uL 4.4-11.0 [facility] Bilirubin Test strip Ql (U)O rdered By: Dr. Tsai on 03-17-2022 Bilirubin Ql (U) Negative Negative [facility] Blood erythrocytes count (nu mber/volume)Ordered By: Dr. Tsai on 03-17-2022 RBC (Bld) [#/Vol] 4.80 10*6/uL 4.2-5.4 [facility] Blood hemoglobin measurement (mass/volume)Ordered By: Dr. Tsai on 03-17-2022 Hemoglobin (Bld) [Mass/Vol] 13.7 g/dL 12.0-15.0 [facility] Blood lymphocytes/100 leukoc ytesOrdered By: Dr. Tsai on 03-17-2022 Lymphocytes/100 WBC (Bld) 29.3 % 19-41 [facility] Blood monocytes/100 leukocyt esOrdered By: Dr. Tsai on 03-17-2022 Monocytes/100 WBC (Bld) 8.7 % 0-10 [facility] Blood platelet mean volumeOr dered By: Dr. Tsai on 03-17-2022 Platelet mean volume (Bld) [Entitic vol] 10.5 fL 6.2-12.0 [facility] Determination of erythrocyte mean corpuscular volume (MCV)Ordered By: Dr. Tsai on 03-17-2022 MCV (RBC) [Entitic vol] 88.3 fL 81-99 [facility] Hematocrit Auto (Bld) [Volum e fraction]Ordered By: Dr. Tsai on 03-17-2022 Hematocrit (Bld) [Volume fraction] 42.4 % 37-47 [facility] Ketones Test strip Ql (U)Ord ered By: Dr. Tsai on 03-17-2022 Ketones Ql (U) Negative Negative [facility] - Hematology and Cell countsOrdered By: Dr. Tsai on 03-17-2022 Erythrocyte distribution width (RBC) [Entitic vol] 41.4 fL 35.1-43.9 [facility] Erythrocyte distribution width (RBC) [Ratio] 12.7 % 11.6-14.6 [facility] Immature granulocytes/100 WBC (Bld) 0.400 % 0.0-0.9 [facility] Comment on above: IG% - Immature Granu locytes (promyelocytes, myelocytes and metamyelocytes) > 1% indicates that a LEFT SHIFT is Present. MCH (RBC) [Entitic mass] 28.5 pg 27.0-32.0 [facility] Nucleated RBC/100 WBC (Bld) [Ratio] 0 % 0-5 [facility] MCHC Auto (RBC) [Mass/Vol]Or dered By: Dr. Tsai on 03-17-2022 MCHC (RBC) [Mass/Vol] 32.3 g/dL 32-36 [facility] Mucus LM Ql (Urine sed)Order ed By: Dr. Tsai on 03-17-2022 Mucus Ql (Urine sed) 0 SEEN /hpf [facility] Nitrite Test strip Ql (U)Ord ered By: Dr. Tsai on 03-17-2022 Nitrite Ql (U) Negative Negative [facility] No Panel InformationOrdered By: Dr. Tsai on 03-17-2022 Parathyroid Hormone (Intact) 33.8 pg/mL 18.4-80.1 [facility] Vitamin D 25-Hydroxy 24.4 ng/mL [facility] Comment on above: Vitamin D 25(OH) Sta tus Range Deficiency <20 ng/mL (50nmol/L) Insufficiency 20 - 30 ng/mL (50 - 75 nmol/L) Sufficiency 30 - 100 ng/mL (75 - 250 nmol/L) Toxicity >100 ng/mL (>250 nmol/L) Platelets bldOrdered By: Dr. Tsai on 03-17-2022 Platelets (Bld) [#/Vol] 279 10*3/uL 150-450 [facility] Protein Test strip Ql (U)Ord ered By: Dr. Tsai on 03-17-2022 Protein Ql (U) Negative Negative [facility] Serum or plasma cholesterol in HDL measurement (mass/volume)Ordered By: Dr. Tsai on 03-17-2022 Cholesterol in HDL [Mass/Vol] 65 mg/dL >40 [facility] Comment on above: The drugs N-Acetylcy steine and Metamizole may falsely depress this assay. Reference Range HDL <40 mg/dL Low HDL Cholesterol HDL >or= 60 mg/dL High HDL Cholesterol Serum or plasma cholesterol in VLDL measurement (mass/volume)Ordered By: Dr. Tsai on 03-17-2022 Cholesterol in VLDL [Mass/Vol] 36 mg/dL 5-40 [facility] Serum or plasma low density lipoprotein (LDL) cholesterol measurement (mass/volume)Ordered By: Dr. Tsai on 03-17-2022 Cholesterol in LDL [Mass/Vol] 111 mg/dL 0-130 [facility] Squamous epithelial cells de tection in urine sediment by light microscopyOrdered By: Dr. Tsai on 03-17-2022 Epithelial cells.squamous LM Ql (Urine sed) 0 SEEN /hpf 5-10 [facility] Urine blood detectionOrdered By: Dr. Tsai on 03-17-2022 RBC Ql (U) 50 /ul Negative [facility] RBC Ql (U) 0 SEEN /hpf 0-5 [facility] Urine clarityOrdered By: Dr. Tsai on 03-17-2022 Clarity (U) Clear Clear [facility] Urine color determinationOrd ered By: Dr. Tsai on 03-17-2022 Color (U) Yellow Yellow [facility] Urine creatinine measurement (mass/volume)Ordered By: Dr. Tsai on 03-17-2022 Creatinine (U) [Mass/Vol] 102.00 mg/dL NO RANGE EST. [facility] Urine glucose detectionOrder ed By: Dr. Tsai on 03-17-2022 Glucose Ql (U) Normal mg/dl Normal [facility] Urine leukocyte esterase det ection by dipstickOrdered By: Dr. Tsai on 03-17-2022 Leukocyte esterase Test strip Ql (U) 25 /ul Negative [facility] Urine pHOrdered By: Dr. Maria Luisa salomon on 03-17-2022 pH (U) 5.0 [pH] 5.0 - 8.0 [facility] Urine protein measurement (m ass/volume)Ordered By: Dr. Tsai on 03-17-2022 Protein (U) [Mass/Vol] 8.6 mg/dL 0.0-11.8 [facility] Urine protein/creatinine mas s ratioOrdered By: Dr. Tsai on 03-17-2022 Protein/Creatinine (U) [Mass ratio] 84 mg/g CRE 0-200 [facility] Urine sediment bacteria coun t by microscopy (number/high power field)Ordered By: Dr. Tsai on 03-17-2022 Bacteria LM.HPF (Urine sed) [#/Area] 0 /[HPF] None Seen [facility] Urine specific gravity measu rementOrdered By: Dr. Tsai on 03-17-2022 Specific gravity (U) [Rel density] 1.020 1.002-1.03 0 [facility] Urobilinogen Auto test strip Ql (U)Ordered By: Dr. Tsai on 03-17-2022 Urobilinogen Ql (U) Normal mg/dl Normal [facility] Absolute lymphocyte counton 11-17-2021 Lymphocytes Auto (Unsp spec) [#/Vol] 1.20 10*3/uL 0.83-4.51 [facility] Work Phone: Basophil percentageon 2021 Basophils/100 WBC (Bld) 0.6 % 0-1 [facility] Work Phone: Bilirubin [Mass/Vol] 0.50 mg/dL 0.20-1.00 [facility] Work Phone: Comment on above: For patients on eltr ombopag therapy, use of Dimension [place] TBIL is not recommended. Chloride [Moles/Vol] 106 mmol/L 98-107 [facility] Work Phone: Eosinophils/100 WBC (Bld) 7.7 % 0-5 [facility] Work Phone: Glucose [Mass/Vol] 83 mg/dL 74-106 [facility] Work Phone: Neutrophils (Bld) [#/Vol] 3.0 10*3/uL 2.0-7.7 [facility] Work Phone: Neutrophils/100 WBC (Bld) 59.8 % 47-70 [facility] Work Phone: Potassium [Moles/Vol] 3.7 mmol/L 3.5-5.1 [facility] Work Phone: Protein [Mass/Vol] 7.6 g/dL 6.4-8.2 [facility] Work Phone: Sodium [Moles/Vol] 142 mmol/L 136-145 [facility] Work Phone: WBC (Bld) [#/Vol] 5.0 10*3/uL 4.4-11.0 [facility] Work Phone: Blood erythrocytes count (nu mber/volume)on 11-17-2021 RBC (Bld) [#/Vol] 4.88 10*6/uL 4.2-5.4 [facility] Work Phone: Blood hemoglobin measurement (mass/volume)on 11-17-2021 Hemoglobin (Bld) [Mass/Vol] 14.4 g/dL 12.0-15.0 [facility] Work Phone: Blood lymphocytes/100 leukoc yteson 11-17-2021 Lymphocytes/100 WBC (Bld) 24.2 % 19-41 [facility] Work Phone: Blood monocytes/100 leukocyt eson 11-17-2021 Monocytes/100 WBC (Bld) 7.3 % 0-10 [facility] Work Phone: Blood platelet mean volumeon 11-17-2021 Platelet mean volume (Bld) [Entitic vol] 10.3 fL 6.2-12.0 [facility] Work Phone: Determination of erythrocyte mean corpuscular volume (MCV)on 11-17-2021 MCV (RBC) [Entitic vol] 89.3 fL 81-99 [facility] Work Phone: Hematocrit Auto (Bld) [Volum e fraction]on 11-17-2021 Hematocrit (Bld) [Volume fraction] 43.6 % 37-47 [facility] Work Phone: Laboratory - Chemistry and C hemistry - challengeon 11-17-2021 ALP [Catalytic activity/Vol] 80 U/L 45-117 [facility] Work Phone: ALT [Catalytic activity/Vol] 22 U/L 13-56 [facility] Work Phone: CO2 [Moles/Vol] 28.0 mmol/L 21.0-32.0 [facility] Work Phone: Globulin (S) [Mass/Vol] 4.0 g/dL 2.2-4.2 [facility] Work Phone: Urea nitrogen/Creatinine [Mass ratio] 18.6 mg/mg 10-20 [facility] Work Phone: Laboratory - Hematology and Cell countson 11-17-2021 Erythrocyte distribution width (RBC) [Entitic vol] 39.4 fL 35.1-43.9 [facility] Work Phone: Erythrocyte distribution width (RBC) [Ratio] 12.0 % 11.6-14.6 [facility] Work Phone: Immature granulocytes/100 WBC (Bld) 0.400 % 0.0-0.9 [facility] Work Phone: Comment on above: IG% - Immature Granu locytes (promyelocytes, myelocytes and metamyelocytes) > 1% indicates that a LEFT SHIFT is Present. MCH (RBC) [Entitic mass] 29.5 pg 27.0-32.0 [facility] Work Phone: Nucleated RBC/100 WBC (Bld) [Ratio] 0 % 0-5 [facility] Work Phone: MCHC Auto (RBC) [Mass/Vol]on 11-17-2021 MCHC (RBC) [Mass/Vol] 33.0 g/dL 32-36 [facility] Work Phone: No Panel Informationon 11-17 Estimated GFR (MDRD) Amer 60 mL/min >60 [facility] Work Phone: Comment on above: GFR Calc Estimated GFR (MDRD) Non-Af Amer 49 mL/min >60 [facility] Work Phone: Comment on above: Non- GFR Calc Platelets bldon 11-17-2021 Platelets (Bld) [#/Vol] 288 10*3/uL 150-450 [facility] Work Phone: [phone] Serum or plasma albumin oksana urement (mass/volume)on 11-17-2021 Albumin [Mass/Vol] 3.6 g/dL 3.2-5.0 [facility] Work Phone: [phone] Serum or plasma albumin/glob ulin mass ratioon 11-17-2021 Albumin/Globulin [Mass ratio] 0.9 {ratio} 0.9-2.4 [facility] Work Phone: Serum or plasma calcium oksana urement (mass/volume)on 11-17-2021 Calcium [Mass/Vol] 9.4 mg/dL 8.5-10.1 [facility] Work Phone: [phone] Serum or plasma creatinine m easurement (mass/volume)on 11-17-2021 Creatinine [Mass/Vol] 1.18 mg/dL 0.55-1.02 [facility] Work Phone: [phone] Comment on above: The validity of the calculated GFR & GFRAA in patients over 70 years has not been determined. Clinical correlation is essential. Serum or plasma urea nitroge n measurement (mass/volume)on 11-17-2021 Urea nitrogen [Mass/Vol] 22 mg/dL 7-18 [facility] Work Phone: Thin prep Papanicolaou smear with manual screeningon 11-17-2021 Thin prep Papanicolaou smear with manual screening 21 U/L 15-37 [facility] Work Phone: Thin prep Papanicolaou smear with manual screening 8 5-15 [facility] Work Phone: Absolute lymphocyte counton 09-15-2021 Lymphocytes Auto (Unsp spec) [#/Vol] 1.06 10*3/uL 0.83-4.51 [facility] Work Phone: Basophil percentageon 2021 Basophils/100 WBC (Bld) 1.0 % 0-1 [facility] Work Phone: Bilirubin [Mass/Vol] 0.50 mg/dL 0.20-1.00 [facility] Work Phone: Comment on above: For patients on eltr ombopag therapy, use of Dimension [place] TBIL is not recommended. Chloride [Moles/Vol] 107 mmol/L 98-107 [facility] Work Phone: Eosinophils/100 WBC (Bld) 6.4 % 0-5 [facility] Work Phone: Glucose [Mass/Vol] 85 mg/dL 74-106 [facility] Work Phone: Neutrophils (Bld) [#/Vol] 3.1 10*3/uL 2.0-7.7 [facility] Work Phone: Neutrophils/100 WBC (Bld) 61.2 % 47-70 [facility] Work Phone: Potassium [Moles/Vol] 4.0 mmol/L 3.5-5.1 [facility] Work Phone: Protein [Mass/Vol] 7.3 g/dL 6.4-8.2 [facility] Work Phone: Sodium [Moles/Vol] 141 mmol/L 136-145 [facility] Work Phone: WBC (Bld) [#/Vol] 5.0 10*3/uL 4.4-11.0 [facility] Work Phone: Blood erythrocytes count (nu mber/volume)on 09-15-2021 RBC (Bld) [#/Vol] 4.61 10*6/uL 4.2-5.4 [facility] Work Phone: Blood hemoglobin measurement (mass/volume)on 09-15-2021 Hemoglobin (Bld) [Mass/Vol] 13.8 g/dL 12.0-15.0 [facility] Work Phone: Blood lymphocytes/100 leukoc yteson 09-15-2021 Lymphocytes/100 WBC (Bld) 21.2 % 19-41 [facility] Work Phone: Blood monocytes/100 leukocyt eson 09-15-2021 Monocytes/100 WBC (Bld) 10.0 % 0-10 [facility] Work Phone: Blood platelet mean volumeon 09-15-2021 Platelet mean volume (Bld) [Entitic vol] 9.9 fL 6.2-12.0 [facility] Work Phone: Determination of erythrocyte mean corpuscular volume (MCV)on 09-15-2021 MCV (RBC) [Entitic vol] 89.4 fL 81-99 [facility] Work Phone: Hematocrit Auto (Bld) [Volum e fraction]on 09-15-2021 Hematocrit (Bld) [Volume fraction] 41.2 % 37-47 [facility] Work Phone: [phone] Laboratory - Chemistry and C hemistry - challengeon 09-15-2021 ALP [Catalytic activity/Vol] 76 U/L 45-117 [facility] Work Phone: ALT [Catalytic activity/Vol] 32 U/L 13-56 [facility] Work Phone: CO2 [Moles/Vol] 31.0 mmol/L 21.0-32.0 [facility] Work Phone: Globulin (S) [Mass/Vol] 3.7 g/dL 2.2-4.2 [facility] Work Phone: Urea nitrogen/Creatinine [Mass ratio] 17.4 mg/mg 10-20 [facility] Work Phone: Laboratory - Hematology and Cell countson 09-15-2021 Erythrocyte distribution width (RBC) [Entitic vol] 43.6 fL 35.1-43.9 [facility] Work Phone: Erythrocyte distribution width (RBC) [Ratio] 13.3 % 11.6-14.6 [facility] Work Phone: Immature granulocytes/100 WBC (Bld) 0.200 % 0.0-0.9 [facility] Work Phone: Comment on above: IG% - Immature Granu locytes (promyelocytes, myelocytes and metamyelocytes) > 1% indicates that a LEFT SHIFT is Present. MCH (RBC) [Entitic mass] 29.9 pg 27.0-32.0 [facility] Work Phone: Nucleated RBC/100 WBC (Bld) [Ratio] 0 % 0-5 [facility] Work Phone: MCHC Auto (RBC) [Mass/Vol]on 09-15-2021 MCHC (RBC) [Mass/Vol] 33.5 g/dL 32-36 [facility] Work Phone: No Panel Informationon 09-15 Estimated GFR (MDRD) Amer 65 mL/min >60 [facility] Work Phone: Comment on above: GFR Calc Estimated GFR (MDRD) Non-Af Amer 54 mL/min >60 [facility] Work Phone: Comment on above: Non- GFR Calc Platelets bldon 09-15-2021 Platelets (Bld) [#/Vol] 259 10*3/uL 150-450 [facility] Work Phone: Serum or plasma albumin oksana urement (mass/volume)on 09-15-2021 Albumin [Mass/Vol] 3.6 g/dL 3.2-5.0 [facility] Work Phone: Serum or plasma albumin/glob ulin mass ratioon 09-15-2021 Albumin/Globulin [Mass ratio] 1.0 {ratio} 0.9-2.4 [facility] Work Phone: Serum or plasma calcium oksana urement (mass/volume)on 09-15-2021 Calcium [Mass/Vol] 9.0 mg/dL 8.5-10.1 [facility] Work Phone: Serum or plasma creatinine m easurement (mass/volume)on 09-15-2021 Creatinine [Mass/Vol] 1.09 mg/dL 0.55-1.02 [facility] Work Phone: Comment on above: The validity of the calculated GFR & GFRAA in patients over 70 years has not been determined. Clinical correlation is essential. Serum or plasma urea nitroge n measurement (mass/volume)on 09-15-2021 Urea nitrogen [Mass/Vol] 19 mg/dL 7-18 [facility] Work Phone: [phone] Thin prep Papanicolaou smear with manual screeningon 09-15-2021 Thin prep Papanicolaou smear with manual screening 29 U/L 15-37 [facility] Work Phone: Thin prep Papanicolaou smear with manual screening 3 5-15 [facility] Work Phone: [phone] Absolute lymphocyte counton 07-02-2021 Lymphocytes Auto (Unsp spec) [#/Vol] 0.94 10*3/uL 0.83-4.51 [facility] Work Phone: [phone] Basophil percentageon 2021 Basophils/100 WBC (Bld) 0.2 % 0-1 [facility] Work Phone: [phone] Bilirubin [Mass/Vol] 0.40 mg/dL 0.20-1.00 [facility] Work Phone: [phone] Comment on above: For patients on eltr ombopag therapy, use of Dimension [place] TBIL is not recommended. Chloride [Moles/Vol] 105 mmol/L 98-107 [facility] Work Phone: Eosinophils/100 WBC (Bld) 0.1 % 0-5 [facility] Work Phone: [phone] Glucose [Mass/Vol] 97 mg/dL 74-106 [facility] Work Phone: Neutrophils (Bld) [#/Vol] 7.4 10*3/uL 2.0-7.7 [facility] Work Phone: Neutrophils/100 WBC (Bld) 84.8 % 47-70 [facility] Work Phone: [phone] Potassium [Moles/Vol] 3.4 mmol/L 3.5-5.1 [facility] Work Phone: Protein [Mass/Vol] 8.5 g/dL 6.4-8.2 [facility] Work Phone: Sodium [Moles/Vol] 139 mmol/L 136-145 [facility] Work Phone: WBC (Bld) [#/Vol] 8.7 10*3/uL 4.4-11.0 [facility] Work Phone: Blood erythrocytes count (nu mber/volume)on 07-02-2021 RBC (Bld) [#/Vol] 5.09 10*6/uL 4.2-5.4 [facility] Work Phone: Blood hemoglobin measurement (mass/volume)on 07-02-2021 Hemoglobin (Bld) [Mass/Vol] 14.8 g/dL 12.0-15.0 [facility] Work Phone: Blood lymphocytes/100 leukoc yteson 07-02-2021 Lymphocytes/100 WBC (Bld) 10.8 % 19-41 [facility] Work Phone: Blood monocytes/100 leukocyt eson 07-02-2021 Monocytes/100 WBC (Bld) 3.6 % 0-10 [facility] Work Phone: Blood platelet mean volumeon 07-02-2021 Platelet mean volume (Bld) [Entitic vol] 10.3 fL 6.2-12.0 [facility] Work Phone: Determination of erythrocyte mean corpuscular volume (MCV)on 07-02-2021 MCV (RBC) [Entitic vol] 87.8 fL 81-99 [facility] Work Phone: Erythrocyte sedimentation ra silvia 07-02-2021 ESR (Bld) [Velocity] 34 mm/h 0-30 [facility] Work Phone: Hematocrit Auto (Bld) [Volum e fraction]on 07-02-2021 Hematocrit (Bld) [Volume fraction] 44.7 % 37-47 [facility] Work Phone: Laboratory - Chemistry and C hemistry - challengeon 07-02-2021 ALP [Catalytic activity/Vol] 106 U/L 45-117 [facility] Work Phone: ALT [Catalytic activity/Vol] 24 U/L 13-56 [facility] Work Phone: CO2 [Moles/Vol] 24.0 mmol/L 21.0-32.0 [facility] Work Phone: Globulin (S) [Mass/Vol] 4.4 g/dL 2.2-4.2 [facility] Work Phone: Urea nitrogen/Creatinine [Mass ratio] 20.0 mg/mg 10-20 [facility] Work Phone: Laboratory - Hematology and Cell countson 07-02-2021 Erythrocyte distribution width (RBC) [Entitic vol] 41.1 fL 35.1-43.9 [facility] Work Phone: Erythrocyte distribution width (RBC) [Ratio] 12.7 % 11.6-14.6 [facility] Work Phone: Immature granulocytes/100 WBC (Bld) 0.500 % 0.0-0.9 [facility] Work Phone: Comment on above: IG% - Immature Granu locytes (promyelocytes, myelocytes and metamyelocytes) > 1% indicates that a LEFT SHIFT is Present. MCH (RBC) [Entitic mass] 29.1 pg 27.0-32.0 [facility] Work Phone: Nucleated RBC/100 WBC (Bld) [Ratio] 0 % 0-5 [facility] Work Phone: MCHC Auto (RBC) [Mass/Vol]on 07-02-2021 MCHC (RBC) [Mass/Vol] 33.1 g/dL 32-36 [facility] Work Phone: No Panel Informationon 07-02 Estimated GFR (MDRD) Amer 68 mL/min >60 [facility] Work Phone: Comment on above: GFR Calc Estimated GFR (MDRD) Non-Af Amer 57 mL/min >60 [facility] Work Phone: Comment on above: Non- GFR Calc Platelets bldon 07-02-2021 Platelets (Bld) [#/Vol] 364 10*3/uL 150-450 [facility] Work Phone: Qualitative QuantiFERON-TB g old in tube teston 07-02-2021 M. tuberculosis tuberculin stim IFN-g Ql (Bld) 0 IU/mL . [facility] Work Phone: Serum or plasma C reactive p rotein measurement (mass/volume)on 07-02-2021 CRP [Mass/Vol] mg/L 0.0-3.0 [facility] Work Phone: Comment on above: C-Reactive Protein ( CRP) provides useful information for thediagnosis, therapy and monitoring of inflammatory processesand associated diseases. For the evaluation of Relative Riskfor Cardiovascular Disease, a High Sensitivity CRP (HSCRP)should be ordered. Serum or plasma albumin oksana urement (mass/volume)on 07-02-2021 Albumin [Mass/Vol] 4.1 g/dL 3.2-5.0 [facility] Work Phone: Serum or plasma albumin/glob ulin mass ratioon 07-02-2021 Albumin/Globulin [Mass ratio] 0.9 {ratio} 0.9-2.4 [facility] Work Phone: Serum or plasma calcium oksana urement (mass/volume)on 07-02-2021 Calcium [Mass/Vol] 9.4 mg/dL 8.5-10.1 [facility] Work Phone: Serum or plasma creatinine m easurement (mass/volume)on 07-02-2021 Creatinine [Mass/Vol] 1.05 mg/dL 0.55-1.02 [facility] Work Phone: Comment on above: The validity of the calculated GFR & GFRAA in patients over 70 years has not been determined. Clinical correlation is essential. Serum or plasma urea nitroge n measurement (mass/volume)on 07-02-2021 Urea nitrogen [Mass/Vol] 21 mg/dL 7-18 [facility] Work Phone: Thin prep Papanicolaou smear with manual screeningon 07-02-2021 Thin prep Papanicolaou smear with manual screening 13 U/L 15-37 [facility] Work Phone: Thin prep Papanicolaou smear with manual screening 10 5-15 [facility] Work Phone: Thin prep Papanicolaou smear with manual screening Comment . [facility] Work Phone: Comment on above: The QuantiFERON-TB G old Plus result is determined bysubtracting the Nil value from either TB antigen (Ag) tube.The mitogen tube serves as a control for the test. Thin prep Papanicolaou smear with manual screening 0 IU/mL . [facility] Work Phone: Thin prep Papanicolaou smear with manual screening 1.60 IU/mL . [facility] Work Phone: Thin prep Papanicolaou smear with manual screening Negative Negative [facility] Work Phone: Comment on above: The specimen receive d for QuantiFERON testing was incubatedby the ordering institution. Specific procedures outlinedin our Directory of Services and in the package insert forthe QuantiFERON Gold (In Tube) test must be followed toenable for proper stimulation of cells for the productionof interferon gamma. Chemiluminescence immunoassaymethodologyPerformed at: [facility] [id number] Director: Trevon Stallings PhD, Phone: [phone] Absolute lymphocyte counton 04-02-2021 Lymphocytes Auto (Unsp spec) [#/Vol] 1.26 10*3/uL 0.83-4.51 [facility] Work Phone: Basophil percentageon 2021 Basophils/100 WBC (Bld) 0.7 % 0-1 [facility] Work Phone: Bilirubin [Mass/Vol] 0.80 mg/dL 0.20-1.00 [facility] Work Phone: [phone] Comment on above: For patients on eltr ombopag therapy, use of Dimension [place] TBIL is not recommended. Chloride [Moles/Vol] 106 mmol/L 98-107 [facility] Work Phone: Eosinophils/100 WBC (Bld) 7.1 % 0-5 [facility] Work Phone: [phone] Glucose [Mass/Vol] 94 mg/dL 74-106 [facility] Work Phone: Neutrophils (Bld) [#/Vol] 5.0 10*3/uL 2.0-7.7 [facility] Work Phone: Neutrophils/100 WBC (Bld) 67.5 % 47-70 [facility] Work Phone: Potassium [Moles/Vol] 3.3 mmol/L 3.5-5.1 [facility] Work Phone: [phone] Protein [Mass/Vol] 7.6 g/dL 6.4-8.2 [facility] Work Phone: Sodium [Moles/Vol] 141 mmol/L 136-145 [facility] Work Phone: WBC (Bld) [#/Vol] 7.5 10*3/uL 4.4-11.0 [facility] Work Phone: [phone] Basophil percentage 0-5 SEEN /hpf [facility] Work Phone: [phone] Bilirubin Test strip Ql (U)o n 04-02-2021 Bilirubin Ql (U) 1 mg/dL Negative [facility] Work Phone: [phone] Comment on above: COLOR OF URINE MAY A FFECT DIPSTICK RESULTS. Blood erythrocytes count (nu mber/volume)on 04-02-2021 RBC (Bld) [#/Vol] 5.34 10*6/uL 4.2-5.4 [facility] Work Phone: [phone] Blood hemoglobin measurement (mass/volume)on 04-02-2021 Hemoglobin (Bld) [Mass/Vol] 15.2 g/dL 12.0-15.0 [facility] Work Phone: Blood lymphocytes/100 leukoc yteson 04-02-2021 Lymphocytes/100 WBC (Bld) 16.9 % 19-41 [facility] Work Phone: Blood monocytes/100 leukocyt eson 04-02-2021 Monocytes/100 WBC (Bld) 7.5 % 0-10 [facility] Work Phone: Blood platelet mean volumeon 04-02-2021 Platelet mean volume (Bld) [Entitic vol] 10.1 fL 6.2-12.0 [facility] Work Phone: [phone] Determination of erythrocyte mean corpuscular volume (MCV)on 04-02-2021 MCV (RBC) [Entitic vol] 86.3 fL 81-99 [facility] Work Phone: [phone] Hematocrit Auto (Bld) [Volum e fraction]on 04-02-2021 Hematocrit (Bld) [Volume fraction] 46.1 % 37-47 [facility] Work Phone: Hyaline casts LM.LPF (Urine sed) [#/Area]on 04-02-2021 Hyaline casts (Urine sed) [#/Area] 0 /[LPF] [facility] Work Phone: [phone] Ketones Test strip Ql (U)on 04-02-2021 Ketones Ql (U) 150 mg/dl Negative [facility] Work Phone: Comment on above: CRITICAL VALUE *H Laboratory - Chemistry and C hemistry - challengeon 04-02-2021 ALP [Catalytic activity/Vol] 82 U/L 45-117 [facility] Work Phone: [phone] ALT [Catalytic activity/Vol] 26 U/L 13-56 [facility] Work Phone: [phone] CO2 [Moles/Vol] 29.0 mmol/L 21.0-32.0 [facility] Work Phone: [phone] Globulin (S) [Mass/Vol] 3.8 g/dL 2.2-4.2 [facility] Work Phone: Lipase [Catalytic activity/Vol] 78 U/L 73-393 [facility] Work Phone: Urea nitrogen/Creatinine [Mass ratio] 22.2 mg/mg 10-20 [facility] Work Phone: Laboratory - Hematology and Cell countson 04-02-2021 Erythrocyte distribution width (RBC) [Entitic vol] 40.8 fL 35.1-43.9 [facility] Work Phone: Erythrocyte distribution width (RBC) [Ratio] 13.2 % 11.6-14.6 [facility] Work Phone: Immature granulocytes/100 WBC (Bld) 0.300 % 0.0-0.9 [facility] Work Phone: Comment on above: IG% - Immature Granu locytes (promyelocytes, myelocytes and metamyelocytes) > 1% indicates that a LEFT SHIFT is Present. MCH (RBC) [Entitic mass] 28.5 pg 27.0-32.0 [facility] Work Phone: Nucleated RBC/100 WBC (Bld) [Ratio] 0 % 0-5 [facility] Work Phone: MCHC Auto (RBC) [Mass/Vol]on 04-02-2021 MCHC (RBC) [Mass/Vol] 33.0 g/dL 32-36 [facility] Work Phone: Mucus LM Ql (Urine sed)on Mucus Ql (Urine sed) 0 SEEN /hpf [facility] Work Phone: Nitrite Test strip Ql (U)on 04-02-2021 Nitrite Ql (U) Negative Negative [facility] Work Phone: No Panel Informationon 04-02 Estimated Creatinine Clearance Calc 39.28 ml/min [facility] Work Phone: Estimated GFR (MDRD) Amer 55 mL/min >60 [facility] Work Phone: Comment on above: GFR Calc Estimated GFR (MDRD) Non-Af Amer 46 mL/min >60 [facility] Work Phone: Comment on above: Non- GFR Calc Platelets bldon 04-02-2021 Platelets (Bld) [#/Vol] 296 10*3/uL 150-450 [facility] Work Phone: Protein Test strip Ql (U)on 04-02-2021 Protein Ql (U) 30 mg/dl Negative [facility] Work Phone: Serum or plasma albumin oksana urement (mass/volume)on 04-02-2021 Albumin [Mass/Vol] 3.8 g/dL 3.2-5.0 [facility] Work Phone: Serum or plasma albumin/glob ulin mass ratioon 04-02-2021 Albumin/Globulin [Mass ratio] 1.0 {ratio} 0.9-2.4 [facility] Work Phone: Serum or plasma calcium oksana urement (mass/volume)on 04-02-2021 Calcium [Mass/Vol] 9.5 mg/dL 8.5-10.1 [facility] Work Phone: Serum or plasma creatinine m easurement (mass/volume)on 04-02-2021 Creatinine [Mass/Vol] 1.26 mg/dL 0.55-1.02 [facility] Work Phone: Comment on above: The validity of the calculated GFR & GFRAA in patients over 70 years has not been determined. Clinical correlation is essential. Serum or plasma urea nitroge n measurement (mass/volume)on 04-02-2021 Urea nitrogen [Mass/Vol] 28 mg/dL 7-18 [facility] Work Phone: Squamous epithelial cells de tection in urine sediment by light microscopyon 04-02-2021 Epithelial cells.squamous LM Ql (Urine sed) 0-5 SEEN /hpf [facility] Work Phone: Thin prep Papanicolaou smear with manual screeningon 04-02-2021 Thin prep Papanicolaou smear with manual screening 22 U/L 15-37 [facility] Work Phone: Thin prep Papanicolaou smear with manual screening 6 5-15 [facility] Work Phone: [phone] Urine blood detectionon 03-17 RBC Ql (U) 50 /ul Negative [facility] Work Phone: [phone] RBC Ql (U) 0 SEEN /hpf [facility] Work Phone: [phone] Urine clarityon 04-02-2021 Clarity (U) Clear Clear [facility] Work Phone: Urine color determinationon 04-02-2021 Color (U) Yellow Yellow [facility] Work Phone: Urine glucose detectionon Glucose Ql (U) Normal mg/dl Normal [facility] Work Phone: [phone] Urine leukocyte esterase det ection by dipstickon 04-02-2021 Leukocyte esterase Test strip Ql (U) 100 /ul Negative [facility] Work Phone: [phone] Urine pHon 04-02-2021 pH (U) 5.0 [pH] [facility] Work Phone: Urine sediment bacteria coun t by microscopy (number/high power field)on 04-02-2021 Bacteria LM.HPF (Urine sed) [#/Area] 0 /[HPF] None Seen [facility] Work Phone: Urine specific gravity measu rementon 04-02-2021 Specific gravity (U) [Rel density] 1.025 [facility] Work Phone: [phone] Urobilinogen Auto test strip Ql (U)on 04-02-2021 Urobilinogen Ql (U) 1 mg/dl Normal [facility] Work Phone: [phone] Absolute lymphocyte counton 03-31-2021 Lymphocytes Auto (Unsp spec) [#/Vol] 1.08 10*3/uL 0.83-4.51 [facility] Work Phone: Basophil percentageon 2021 Basophil percentage 3.4 mg/dL 2.5-4.9 [facility] Work Phone: Basophils/100 WBC (Bld) 0.7 % 0-1 [facility] Work Phone: Bilirubin [Mass/Vol] 0.60 mg/dL 0.20-1.00 [facility] Work Phone: [phone] Comment on above: For patients on eltr ombopag therapy, use of Dimension [place] TBIL is not recommended. Chloride [Moles/Vol] 104 mmol/L 98-107 [facility] Work Phone: Cholesterol [Mass/Vol] 220 mg/dL <200 [facility] Work Phone: [phone] Comment on above: <200 mg/dL Desirable 200-240 mg/dL Borderline >240 mg/dL High Risk Eosinophils/100 WBC (Bld) 5.7 % 0-5 [facility] Work Phone: Glucose [Mass/Vol] 97 mg/dL 74-106 [facility] Work Phone: Neutrophils (Bld) [#/Vol] 4.7 10*3/uL 2.0-7.7 [facility] Work Phone: Neutrophils/100 WBC (Bld) 70.4 % 47-70 [facility] Work Phone: Potassium [Moles/Vol] 3.4 mmol/L 3.5-5.1 [facility] Work Phone: Protein [Mass/Vol] 8.1 g/dL 6.4-8.2 [facility] Work Phone: Sodium [Moles/Vol] 140 mmol/L 136-145 [facility] Work Phone: Triglyceride [Mass/Vol] 140 mg/dL [facility] Work Phone: [phone] Comment on above: The drugs N-Acetylcy steine and Metamizole may falsely depress this assay.Serum Triglycerides Reference Interval Normal <150 mg/dL Borderline high 150 - 199 mg/dL High 200 - 499 mg/dL Very High > or = 500 mg/dL WBC (Bld) [#/Vol] 6.7 10*3/uL 4.4-11.0 [facility] Work Phone: [phone] Blood erythrocytes count (nu mber/volume)on 03-31-2021 RBC (Bld) [#/Vol] 5.10 10*6/uL 4.2-5.4 [facility] Work Phone: [phone] Blood hemoglobin measurement (mass/volume)on 03-31-2021 Hemoglobin (Bld) [Mass/Vol] 15.3 g/dL 12.0-15.0 [facility] Work Phone: Blood lymphocytes/100 leukoc yteson 03-31-2021 Lymphocytes/100 WBC (Bld) 16.1 % 19-41 [facility] Work Phone: Blood monocytes/100 leukocyt eson 03-31-2021 Monocytes/100 WBC (Bld) 6.8 % 0-10 [facility] Work Phone: Blood platelet mean volumeon 03-31-2021 Platelet mean volume (Bld) [Entitic vol] 10.3 fL 6.2-12.0 [facility] Work Phone: [phone] Determination of erythrocyte mean corpuscular volume (MCV)on 03-31-2021 MCV (RBC) [Entitic vol] 89.6 fL 81-99 [facility] Work Phone: [phone] Hematocrit Auto (Bld) [Volum e fraction]on 03-31-2021 Hematocrit (Bld) [Volume fraction] 45.7 % 37-47 [facility] Work Phone: [phone] Laboratory - Chemistry and C hemistry - challengeon 03-31-2021 ALP [Catalytic activity/Vol] 94 U/L 45-117 [facility] Work Phone: [phone] ALT [Catalytic activity/Vol] 23 U/L 13-56 [facility] Work Phone: [phone] CO2 [Moles/Vol] 28.0 mmol/L 21.0-32.0 [facility] Work Phone: [phone] Globulin (S) [Mass/Vol] 4.3 g/dL 2.2-4.2 [facility] Work Phone: Urea nitrogen/Creatinine [Mass ratio] 17.4 mg/mg 10-20 [facility] Work Phone: Laboratory - Hematology and Cell countson 03-31-2021 Erythrocyte distribution width (RBC) [Entitic vol] 42.6 fL 35.1-43.9 [facility] Work Phone: Erythrocyte distribution width (RBC) [Ratio] 13.7 % 11.6-14.6 [facility] Work Phone: Immature granulocytes/100 WBC (Bld) 0.300 % 0.0-0.9 [facility] Work Phone: Comment on above: IG% - Immature Granu locytes (promyelocytes, myelocytes and metamyelocytes) > 1% indicates that a LEFT SHIFT is Present. MCH (RBC) [Entitic mass] 30.0 pg 27.0-32.0 [facility] Work Phone: Nucleated RBC/100 WBC (Bld) [Ratio] 0 % 0-5 [facility] Work Phone: MCHC Auto (RBC) [Mass/Vol]on 03-31-2021 MCHC (RBC) [Mass/Vol] 33.5 g/dL 32-36 [facility] Work Phone: No Panel Informationon 03-31 Estimated GFR (MDRD) Amer 58 mL/min >60 [facility] Work Phone: Comment on above: GFR Calc Estimated GFR (MDRD) Non-Af Amer 48 mL/min >60 [facility] Work Phone: Comment on above: Non- GFR Calc Parathyroid Hormone (Intact) 38.1 pg/mL 18.4-80.1 [facility] Work Phone: Vitamin D 25-Hydroxy 51.7 ng/mL [facility] Work Phone: Comment on above: Vitamin D 25(OH) Sta tus Range Deficiency <20 ng/mL (50nmol/L) Insufficiency 20 - 30 ng/mL (50 - 75 nmol/L) Sufficiency 30 - 100 ng/mL (75 - 250 nmol/L) Toxicity >100 ng/mL (>250 nmol/L) Platelets bldon 03-31-2021 Platelets (Bld) [#/Vol] 349 10*3/uL 150-450 [facility] Work Phone: Serum or plasma albumin oksana urement (mass/volume)on 03-31-2021 Albumin [Mass/Vol] 3.8 g/dL 3.2-5.0 [facility] Work Phone: Serum or plasma albumin/glob ulin mass ratioon 03-31-2021 Albumin/Globulin [Mass ratio] 0.9 {ratio} 0.9-2.4 [facility] Work Phone: Serum or plasma calcium oksana urement (mass/volume)on 03-31-2021 Calcium [Mass/Vol] 9.3 mg/dL 8.5-10.1 [facility] Work Phone: Serum or plasma cholesterol in HDL measurement (mass/volume)on 03-31-2021 Cholesterol in HDL [Mass/Vol] 58 mg/dL [facility] Work Phone: Comment on above: The drugs N-Acetylcy steine and Metamizole may falsely depress this assay. Reference Range HDL <40 mg/dL Low HDL Cholesterol HDL >or= 60 mg/dL High HDL Cholesterol Serum or plasma cholesterol in VLDL measurement (mass/volume)on 03-31-2021 Cholesterol in VLDL [Mass/Vol] 28 mg/dL 5-40 [facility] Work Phone: Serum or plasma creatinine m easurement (mass/volume)on 03-31-2021 Creatinine [Mass/Vol] 1.21 mg/dL 0.55-1.02 [facility] Work Phone: Comment on above: The validity of the calculated GFR & GFRAA in patients over 70 years has not been determined. Clinical correlation is essential. Serum or plasma low density lipoprotein (LDL) cholesterol measurement (mass/volume)on 03-31-2021 Cholesterol in LDL [Mass/Vol] 134 mg/dL 0-130 [facility] Work Phone: [phone] Serum or plasma urea nitroge n measurement (mass/volume)on 03-31-2021 Urea nitrogen [Mass/Vol] 21 mg/dL 7-18 [facility] Work Phone: Thin prep Papanicolaou smear with manual screeningon 03-31-2021 Thin prep Papanicolaou smear with manual screening 18 U/L 15-37 [facility] Work Phone: Thin prep Papanicolaou smear with manual screening 8 5-15 [facility] Work Phone: Urine creatinine measurement (mass/volume)on 03-31-2021 Creatinine (U) [Mass/Vol] 486.00 mg/dL NO RANGE EST. [facility] Work Phone: Urine protein measurement (m ass/volume)on 03-31-2021 Protein (U) [Mass/Vol] 73.5 mg/dL 0.0-11.8 [facility] Work Phone: [phone] Urine protein/creatinine mas s ratioon 03-31-2021 Protein/Creatinine (U) [Mass ratio] 151 mg/g CRE 0-200 [facility] Work Phone: [phone] Vital Signs Date Time Vital Sign Value Performing Clinician Cruz guallpa 12-23-2023 10:03-0500 Body mass index (BMI) [Ratio] 19.83 kg/m2 Tamela Gaines APRN.[employer] WORK[employer] Work Phone: [facility] 12-23-2023 10:03-0500 Body temperature 97.5 [degF] Tamela Gaines APRN.[employer]ILY WORK[employer] Work Phone: [facility] 12-23-2023 10:03-0500 Body weight 52.8 kg Tamela Gaines APRN.[employer] WORK[employer] Work Phone: [facility] 12-23-2023 10:03-0500 Diastolic blood pressure 93 mm[Hg] Tamela Gaines APRN.[employer]ILY WORK[employer] Work Phone: [facility] 12-23-2023 10:03-0500 Heart rate 81 /min Tamela Gaines APRN.[employer]ILY WORK[employer] Work Phone: [facility] 12-23-2023 10:03-0500 Respiratory rate 16 /min Tamela Gaines APRN.[employer] WORK[employer] Work Phone: [facility] 12-23-2023 10:03-0500 SaO2% (BldA) [Mass fraction] 100 % Tamela Gaines APRN.[employer]ILY WORK[employer] Work Phone: [facility] 12-23-2023 10:03-0500 Systolic blood pressure 160 mm[Hg] Tamela Gaines APRN.FAMILY WORK[employer] Work Phone: [facility] 07-02-2021 13:42-0400 Diastolic blood pressure 85 mm[Hg] [facility] Work Phone: 07-02-2021 13:42-0400 Heart rate 81 /min [facility] Work Phone: 07-02-2021 13:42-0400 Respiratory rate 16 /min [facility] Work Phone: 07-02-2021 13:42-0400 SaO2% (BldA) [Mass fraction] 98 % [facility] Work Phone: 07-02-2021 13:42-0400 Systolic blood pressure 149 mm[Hg] [facility] Work Phone: 07-02-2021 12:02-0400 Body height 165.1 cm [facility] Work Phone: 07-02-2021 12:02-0400 Body mass index (BMI) [Ratio] 20.3 kg/m2 [facility] Work Phone: 07-02-2021 12:02-0400 Body temperature 98.7 [degF] [facility] Work Phone: 07-02-2021 12:02-0400 Body weight 55.4 kg [facility] Work Phone: 04-02-2021 13:16-0500 Heart rate 88 /min [facility] Work Phone: 04-02-2021 13:16-0500 Respiratory rate 16 /min [facility] Work Phone: 04-02-2021 13:16-0500 SaO2% (BldA) [Mass fraction] 98 % [facility] Work Phone: 04-02-2021 12:10-0500 Body temperature 97.5 [degF] [facility] Work Phone: 04-02-2021 12:10-0500 Diastolic blood pressure 66 mm[Hg] [facility] Work Phone: 04-02-2021 12:10-0500 Systolic blood pressure 124 mm[Hg] [facility] Work Phone: 04-02-2021 08:10-0500 Body mass index (BMI) [Ratio] 19.4 kg/m2 [facility] Work Phone: 04-02-2021 08:10-0500 Body weight 53.07 kg [facility] Work Phone: Encounters Encounter Date Encounter Type Care Provider Facility Start: 03-28-2024 End: 03-28-2024 ambulatory [facility] Facility:[facility] Start: 12-23-2023 End: 12-23-2023 Subsequent hospital visit by physician [facility] Work Phone: Radiology Comment on above: Pain [R52] Start: 12-23-2023 End: 12-23-2023 ambulatory [facility] Facility:[facility] Start: 12-23-2023 End: 12-23-2023 Patient encounter procedure Tamela Gaines APRN.[facility] Work Phone: [facility] Comment on above: Pain (Primary Dx) Start: 04-21-2023 End: 04-21-2023 ambulatory [facility] Work Phone: Start: 04-21-2023 End: 04-21-2023 Patient encounter procedure [facility] Start: 04-21-2023 End: 04-21-2023 ambulatory [facility] Facility:[facility] Start: 03-17-2022 End: 03-17-2022 ambulatory [facility] Work Phone: Start: 03-17-2022 End: 03-17-2022 Patient encounter procedure [facility] Start: 11-17-2021 End: 11-17-2021 ambulatory [facility] Work Phone: Start: 11-17-2021 End: 11-17-2021 Patient encounter procedure [facility] Start: 09-16-2021 ambulatory Sunita Washington Work Phone: Internal Medicine [facility] Start: 09-15-2021 End: 09-15-2021 Patient encounter procedure [facility] Start: 07-02-2021 End: 07-02-2021 [facility] Start: 07-02-2021 End: 07-02-2021 Patient encounter procedure [facility] Start: 04-02-2021 End: 04-02-2021 [facility] Start: 03-31-2021 End: 03-31-2021 Patient encounter procedure [facility] Procedures Date Procedure Procedure Detail Performing Clinician Start: 12-23-2023 Radex hip unilateral with pelvis 2-3 views Tamela Gaines APRN.[employer] Work Phone: Start: 04-21-2023 Urine culture Start: 07-02-2021 CT cervical spine wi thout contrast Start: 07-02-2021 CT of head without contrast Start: 04-02-2021 Computed tomography of abdomen and pelvis with contrast Start: 03-31-2021 Diagnostic radiograp hy of abdomen Start: 06-10-2018 Lipid 1996 panel - S kevon or Plasma Tamela Gaines APRN.[employer] Work Phone: Start: 12-21-2017 Mammography Sunita kirkpatrick MD Work Phone: Start: 12-07-2016 Adult depression scr eening assessment Sunita Ly MD Work Phone: Start: 09-07-2010 Colonoscopy Sunita kirkpatrick MD Work Phone: Plan of Treatment Date Care Activity Detail Author Start: 03-29-2025 Screening for malign ant neoplasm of colon Cologuard (FIT-DNA) [facility] Start: 10-16-2023 Covid-19 Vaccine () Covid-19 Vaccine () [facility] Start: 10-16-2023 Influenza vaccination Influenza Vacc ine (#1) [facility] Start: 06-11-2023 Lipid panel Lipid Screening [facility] Start: 06-11-2023 LIPID SCREEN LIPID SCREEN [facility] Start: 06-03-2023 Screening for malign ant neoplasm of cervix Cervical Cancer Screening [facility] Start: 03-30-2022 Screening for malign ant neoplasm of colon Colorectal Cancer Screening [facility] Start: 12-14-2021 HPV TESTING HPV TESTING [facility] Start: 12-14-2021 PAP TESTING PAP TESTING [facility] Start: 10-15-2021 Influenza vaccination INFLUENZA (#1) [facility] Start: 07-02-2021 Blood count complete auto&auto difrntl wbc COMPLETE CBC W/AUTO DIFF WBC [facility] Work Phone: Start: 07-02-2021 C-reactive protein C-REACTIVE PROTEI N [facility] Work Phone: Start: 07-02-2021 Collection venous bl ood venipuncture ROUTINE VENIPUNCTURE [facility] Work Phone: Start: 07-02-2021 Comprehensive metabo lic panel COMPREHEN METABOLIC PANEL [facility] Work Phone: Start: 07-02-2021 Sedimentation rate r bc automated RBC SED RATE AUTOMATED [facility] Work Phone: Start: 07-02-2021 Tb cell mediated ant ign respnse gamma interferon TB TEST CELL IMMUN MEASURE [facility] Work Phone: Start: 06-10-2021 DIABETES SCREEN DIABETES SCREEN [facility] Start: 06-10-2021 Diabetes Screening Diabetes Screenin g [facility] Start: 10-14-2020 ANNUAL PCP TEAM CANDLE MOLDER HAND SHAWNA DISEASE VISIT ANNUAL PCP TEAM CHRONIC DISEASE VISIT [facility] Start: 09-07-2020 Colonoscopy COLONOSCOPY [facility] Start: 09-07-2020 COLORECTAL CANCER SCREENING COLORECTAL CANCER SCREENING [facility] Start: 09-07-2020 Screening for malign ant neoplasm of colon Colonoscopy [facility] Start: 2019 RSV Vaccine (1 - Ris k 60-74 years 1-dose series) RSV Vaccine (1 - Risk 60-74 years 1-dose series) [facility] Start: 12-21-2018 Mammography MAMMOGRAM [facility] Start: 12-21-2018 Screening for malign ant neoplasm of breast Mammogram Screening [facility] Start: 12-07-2017 Adult depression screening assessment DEPRESSION SCREENING [facility] Start: 08-25-2004 COLOGUARD (FIT-DNA) COLOGUARD (FIT-D NA) [facility] Start: 08-25-[address] COLONOGRAPHY [facility] Start: 08-25-2004 FECAL OCCULT BLOOD FECAL OCCULT BLOO D [facility] Start: 08-25-2004 Screening for malign ant neoplasm of colon [facility] Start: 08-25-2004 SIGMOIDOSCOPY SIGMOIDOSCOPY [facility] Start: 08-25-1978 SHINGRIX VACCINE (1 of 2) SHINGRIX VACCINE (1 of 2) [facility] Start: 08-25-1978 Urine microalbumin profile [facility] Start: 08-25-1977 Anxiety Screening Anxiety Screening [facility] Start: 08-25-1977 BP CONTROLLED (<130/80) BP CONTROLLE D (<130/80) [facility] Start: 08-25-1977 Depression Screening Depression Scre ening [facility] Start: 08-25-1977 HIV SCREENING HIV SCREENING [facility] Start: 08-25-1977 HIV [facility] [facility] Start: [birth year]-25-1965 PNEUMOCOCCAL (1 - PCV) PNEUMOCOCCAL (1 - PCV) [facility] Start: 08-25-1965 Pneumococcal vaccination Pneum ococcal Vaccine (1 of 2 - PCV) [facility] Start: 02-26-1960 COVID-19 VACCINE (#1) COVID-19 VACCI NE (#1) [facility] Patient Education [facility] Work Phone: Patient referral [facility] Work Phone: End: 10-16-2022 Screening mammography bi 2-view breast inc cad JORGE SCREENING Radiology Routine Encounter for screening mammogram for breast cancer 1 Occurrences starting 09/16/2021 until 10/16/2022 [facility] Work Phone: Comment on above: 1 Occurrences starti ng 09/16/2021 until 10/16/2022 Immunizations Immunization Date Immunization Notes Care Provider Fa cility 05-22-2020 Covid (Pfizer) [facility] 05-01-2020 Covid (Pfizer) [facility] 12-09-2018 influenza virus vaccine, unspecified formulation Tamela Gaines APRN.CNP Work Phone: [facility] 12-02-2016 influenza, injectabl e, quadrivalent, contains preservative Sunita Ly MD Work Phone: [facility] Payers Date Payer Category Payer Self-pay [id number] 2022 Unknown [id number] 2019 Unknown [id number] 2008 Unknown [id number] Medicaid [id number] Medicare MEDICARE PART A B [id number] Unknown [id number] Unknown [id number] Unknown [id number] Social History Date Type Detail Facility Start: 07-02-2021 End: 07-02-2021 Tobacco smoking status NHIS Unknown if ever smoked [facility] Start: 1960 Sex Assigned At Female W [facility] Start: 08-11-2011 Tobacco smoking stat us NHIS Never smoked tobacco [facility] Start: 08-11-2011 Tobacco use and exposure Smoke less tobacco non-user [facility] Start: 10-13-2019 End: 12-23-2023 Alcohol intake Current non-drinker of alcohol (finding) [facility] Start: 10-13-2019 History SDOH Alcohol Frequency 1 [facility] Start: 06-11-2011 History SDOH Alcohol Comment not on the mtx [facility] Start: 10-13-2019 History SDOH Social Connections Phone 5 [facility] Start: 10-13-2019 History SDOH Social Connections Get Together 2 [facility] Start: 10-13-2019 History SDOH Physica l Activity DPW 0 [facility] Start: 10-13-2019 History SDOH Financial 3 [facility] Start: 1960 Sex Assigned At Not on file [facility] Start: 10-13-2019 End: 06-02-2022 History of Social function [facility] Start: 10-13-2019 End: 06-02-2022 Social connection and isolation panel [facility] Do you belong to any clubs or organizations such as religious groups, unions, fraternal or athletic groups, or school groups? No [facility] Are you now , , , , never or living with a partner? [facility] How often to you hav e a drink containing alcohol? Never [facility] Average Number of Drinks Not on file [facility] How hard is it for y ou to pay for the very basics like food, housing, medical care, and heating Somewhat hard [facility] Do you feel stress - tense, restless, nervous, or anxious, or unable to sleep at night because your mind is troubled all the time - these days [OSQ] Only a little [facility] (I/We) worried ruchi er (my/our) food would run out before (I/we) got money to buy more. Never true [facility] Clinical Notes 09-07-2010 to 12-23-2023 Michelle Arreaga RT(R) - 12/23/2023 10:30 AM Tamela Polanco APRN.CNP - 12/23/2023 10:18 AM EST Note Date & Type Note Facility 12-23-2023 History of Present illness Narrative Radiology Service Progress Note PATIENT NAME: Nani Torres DATE OF SERVICE: December 23, 2023 TIME: 10:22 AM PATIENT IDENTITY VERIFICATION COMPLETED USING TWO (2) IDENTIFIERS: Name and Date of confirmed by patient verbally. FALL SCREENING: Has the patient had 2 falls in the last year or 1 fall with injury or currently using an Ambulatory Assistive Device (Walker, Cane, Wheelchair, Crutches, etc.)? No PATIENT GENDER DATA: Female. status: : No status: NO. PATIENT RELEVANT IMPLANT DATA REVIEWED: Not Applicable PATIENT PRESENTS WITH AN IMPLANTABLE OR ATTACHED NOTCHING MACHINE OPERATOR: No RADIOLOGY DEPARTMENT: General X-ray: Exam(s) Completed: Spine X-Ray(s): Lumbar AP / LAT / L5-S1 Pelvis X-Ray: Pelvis with Hip Left PERIPHERAL IV DATA: Not applicable SIGNED BY: RT Zeb(R) December 23, 2023 10:22 AM documented in this encounter [facility] 12-23-2023 Note HNO ID: [id number] Author: MICHELLE ARREAGA RT(R) Service: Radiology Author Type: Technologist Type: Progress Notes Filed: 12/23/2023 10:40 Note Text: Radiology Service Progress Note PATIENT NAME: Nani Torres DATE OF SERVICE: December 23, 2023 TIME: 10:22 AM PATIENT IDENTITY VERIFICATION COMPLETED USING TWO (2) IDENTIFIERS: Name and Date of confirmed by patient verbally. FALL SCREENING: Has the patient had 2 falls in the last year or 1 fall with injury or currently using an Ambulatory Assistive Device (Walker, Cane, Wheelchair, Crutches, etc.)? No PATIENT GENDER DATA: Female. status: : No status: NO. PATIENT RELEVANT IMPLANT DATA REVIEWED: Not Applicable PATIENT PRESENTS WITH AN IMPLANTABLE OR ATTACHED NOTCHING MACHINE OPERATOR: No RADIOLOGY DEPARTMENT: General X-ray: Exam(s) Completed: Spine X-Ray(s): Lumbar AP / LAT / L5-S1 Pelvis X-Ray: Pelvis with Hip Left PERIPHERAL IV DATA: Not applicable SIGNED BY: RT Zeb(R) December 23, 2023 10:[address] [facility] 12-23-2023 Note HNO ID: [id number] Author: TAMELA GAINES APRN.FAMILY WORKER Service: ? Author Type: Nurse Practitioner Type: Progress Notes Filed: 12/23/2023 11:10 Note Text: Subjective Came in with complaints of lower back and left hip pain. Patient says she does have a history of arthritis. Patient says the arthritis was in the right hip and back. Patient denies anything new at this time. Such as lifting heavy boxes or injuries. Says sitting makes it worse. The history is provided by the patient. No speech and language tutor was used. Review of Systems Constitutional: Negative. Skin: Negative. Objective Physical Exam Constitutional: Appearance: Normal appearance. Pulmonary: Effort: Pulmonary effort is normal. Skin: Comments: Having pain in the area marked above. Not reproducible by palpation. Neurological: Mental Status: She is alert. 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 Psoriasis Rheumatoid arthritis(714.0) 11/01/2008 Variants of migraine, not elsewhere classified, without mention of intractable migraine without mention of status migrainosus PAST SURGICAL HISTORY Procedure Laterality Date ADENOIDECTOMY PRIMARY Adenoidectomy CHOLECYSTECTOMY 08/2008 Cholecystectomy COLONOSCOPY FLX DX W/COLLJ SPEC WHEN PFRMD 09/07/2010 Colonoscopy DILATION AND CURETTAGE DXAND/THER NONOBSTETRIC Dilation AND curettage ESOPHAGOGASTRODUODENOSCOPY TRANSORAL DIAGNOSTIC 09/07/2010 EGD EXTRACTION, ERUPTED TOOTH OR EXPOSED ROOT (ELEVATION AND/OR FORCEPS REMOVAL) WISDOM TEETH LAPS SURG CHOLECYSTECTOMY W/CHOLANGIOGRAPHY Normal IOC TONSILLECTOMY PRIMARY/SECONDARY Tonsillectomy ALLERGIES Codeine and Tylenol [Acetaminophen]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
== END | disposition home or self-care (01) ==
LOC: MTLAB 09:11
PROVIDERS: PCP Family Medicine; Referring Provider Family Medicine; Visit Provider Family Medicine
DX: I12.9 Hypertensive chronic kidney disease with stage 1 through stage 4 chronic kidney disease, or unspecified chronic kidney disease (principal); N18.30 Chronic kidney disease, stage 3 unspecified; E55.9 Vitamin D deficiency, unspecified; E78.5 Hyperlipidemia, unspecified
CPT/HCPCS: 36415; 80053; 80061; 81001; 82306; 82570; 83735; 83970; 84156; 84443; 85025

== ENCOUNTER → 2025-02-01 | Outpatient (CLI) | payer MEDICARE, SELFPAY ==
[2025-02-01 12:32] LABS: Hematocrit 38.7 % (37-47); Hemoglobin 12.5 g/dL (12.0-15.0); Immature Granulocytes Count 0.010 X10^3/uL (0.0-0.0); Mean Corp Hgb Conc 32.3 g/dL (32-36); Mean Corpuscular Volume 89.6 fL (81-99); Mean Platelet Vol. 10.5 fl (6.2-12.0); NRBC Flagged by Analyzer 0 % (0-5); Platelet Count 311 K/mm3 (150-450); RBC Distribution Width CV 12.1 % (11.6-14.6); RBC Distribution Width SD 39.7 fl (35.1-43.9); Red Blood Count 4.32 M/mm3 (4.2-5.4); White Blood Count 5.0 K/mm3 (4.4-11.0)
[2025-02-01 13:04] LABS: Creatinine, Urine (random) 158.00 mg/dL (28.00-217.00); Protein, Urine (Random) 16.8 mg/dL (0.0-12.0); Protein:Creat Ratio 106 mg/g CRE (0-200)
[2025-02-01 13:29] LABS: AST(SGOT) 22 U/L (<=31); Alanine Aminotransfer ALT/SGPT 27 U/L (<=34); Albumin, Serum 4.2 g/dL (3.4-4.8); Alkaline Phosphatase 74 U/L (35-104); Anion Gap 10 (5-15); BUN 19 mg/dL (4-19); BUN/Creat Ratio 20.7 RATIO (10-20); Calcium,Total 9.5 mg/dL (7.6-11.0); Carbon Dioxide 24.9 mmol/L (21.0-32.0); Chloride 106 mmol/L (98-108); Cholesterol 168 mg/dL (<=200); Globulin 3.3 g/dL (2.2-4.2); Glucose 89 mg/dL (70-99); Low Density Lipoprotein Calc. 98 mg/dL; Potassium 4.6 mmol/L (3.3-5.1); Triglycerides 94 mg/dL; Very Low Density Lipoprotein 19 mg/dL (5-40); Vitamin D,25 Hydroxy 32.1 ng/mL (30-100); cholesterol:hdl ratio screen 3.19
== END | disposition home or self-care (01) ==
LOC: MFPLAB 09:56
PROVIDERS: PCP Family Medicine; Visit Provider Family Medicine
DX: E78.5 Hyperlipidemia, unspecified (principal); N18.30 Chronic kidney disease, stage 3 unspecified
CPT/HCPCS: 36415; 80053; 80061; 82306; 82570; 84156; 85025